=== PATIENT | male | born 1955 | race Caucasian/White ===

== ENCOUNTER 2018-08-27 11:45 | Emergency (ER) | payer MEDICARE, BC ==
[~2018-08-27] VITALS: Ht 190.5 cm; Wt 104.3 kg
[2018-08-27 12:21] LABS: BASOPHILS ABSOLUTE AUTO 0.04 K/mm3 (0.00-0.23); BASOPHILS PERCENT AUTO 0 % (0-2); EOSINOPHILS ABSOLUTE AUTO 0.07 K/mm3 (0.00-0.68); EOSINOPHILS PERCENT AUTO 1 % (0-6); Hemoglobin 9.3 g/dL (13.5-17.5); IMMATURE GRAN ABSOLUTE AUTO 0.08 K/mm3 (0.00-0.10); IMMATURE GRAN PERCENT AUTO 1 % (0-1); LYMPHOCYTES ABSOLUTE AUTO 1.39 K/mm3 (0.84-5.20); LYMPHOCYTES PERCENT AUTO 15 % (21-46); MONOCYTES ABSOLUTE AUTO 0.95 K/mm3 (0.16-1.47); MONOCYTES PERCENT AUTO 11 % (4-13); Mean Corpuscular HGB 22.4 pg (26.0-34.0); Mean Corpuscular HGB Conc 28.2 g/dL (31.5-36.5); Mean Corpuscular Volume 79 fL (80-100); Mean Platelet Volume 10.4 fL (9.1-12.4); NEUTROPHILS ABSOLUTE AUTO 6.52 K/mm3 (1.96-9.15); NEUTROPHILS PERCENT AUTO 72 % (41-73); NRBC ABSOLUTE 0.07 K/mm3 (0.00-0.02); NRBC Auto 0.8 /100 WBC (0.0-0.2); Platelet Count 193 K/mm3 (150-400); RDW Coefficient Variation 20.4 % (11.7-14.2); RDW Standard Deviation 57.5 fL (35.1-46.3); Red Blood Cell Count 4.16 M/mm3 (4.30-5.90); White Blood Cell Count 9.05 K/mm3 (4.00-11.30)
[2018-08-27 12:38] LABS: International Normalized Ratio 1.44; Prothrombin Time Results 14.8 Sec (9.7-11.5)
[2018-08-27 12:44] LABS: Alanine Aminotransfer (ALT/SGP 19 U/L (12-78); Albumin, Blood 2.6 g/dL (3.4-5.0); Albumin/Globulin Ratio 0.5 (0.8-1.8); Alk Phos 96 U/L (50-136); Anion Gap 11 mmol/L (6-16); Aspartate Aminotrans (AST/SGOT 30 U/L (12-37); Bilirubin, Total 0.3 mg/dL (0.1-1.0); Blood Urea Nitrogen 21 mg/dL (8-24); CO2, Blood 20 mmol/L (21-32); Calcium, Blood 7.8 mg/dL (8.5-10.1); Chloride, Blood 110 mmol/L (98-108); Creatinine, Blood 1.62 mg/dL (0.60-1.20); Globulin, Blood 5.1 g/dL (2.2-4.0); Glomerular Filtration Rate 46 (60-); Glucose, Blood 91 mg/dL (70-99); Potassium, Blood 3.8 mmol/L (3.5-5.5); Sodium, Blood 141 mmol/L (136-145); Total Protein, Blood 7.7 g/dL (6.4-8.2)
[2018-08-27 12:51] LABS: Digoxin (Lanoxin) 0.84 ug/mL (0.80-2.00)
[2018-08-27] MEDS ORDERED: CEFU250T47 PO (14:31)
[2018-08-27] MEDS ORDERED: METO100ER PO (14:32)
[2018-08-27] MEDS ORDERED: AMLO5 PO (14:32)
[2018-08-27] MEDS ORDERED: DIGOX125 MCG PO (14:32)
[2018-08-27] MEDS ORDERED: XARELTO15 MG PO (14:33)
[2018-08-27] MEDS ORDERED: PANT40 PO (14:33)
[2018-08-27] MEDS ORDERED: BUME2 PO (14:33)
[2018-08-27] MEDS ORDERED: PRAV20 PO (14:33)
[2018-08-27] MEDS ORDERED: Amiodarone HCl200 MG PO (14:34)
[2018-08-27] MEDS ORDERED: ACET325 PO (14:35)
== END 2018-08-27 15:10 | disposition home or self-care (01) ==
LOC: ER 11:45
PROVIDERS: Physician Assistant
DX: L08.9 Local infection of the skin and subcutaneous tissue, unspecified (principal); R79.9 Abnormal finding of blood chemistry, unspecified; Z79.899 Other long term (current) drug therapy
CPT/HCPCS: 36415; 80053; 80162; 83605; 85025; 85610; 87040; 93005; 93010; 96360; 99283-25; J7120

== ENCOUNTER 2018-08-28 12:20 | Day surgery (SDC) | payer MEDICARE, BC ==
[~2018-08-28 12:20] MED LIST: ACET325 PO; AMLO5 PO; Amiodarone HCl200 MG PO; BUME2 PO; CEFU250T47 PO; DIGOX125 MCG PO; METO100ER PO; PANT40 PO; PRAV20 PO; XARELTO15 MG PO
[2018-08-29] MEDS ORDERED: Rocephin 1g1 G/50 ML IV (16:38)
== END 2018-08-28 16:40 | disposition home or self-care (01) ==
LOC: ATC 12:20
DX: A40.8 Other streptococcal sepsis (principal)
CPT/HCPCS: 36569; 71045; 96365; C1751; J0696

== ENCOUNTER 2018-08-29 14:15 | Day surgery (SDC) | payer MEDICARE, BC ==
[2018-08-29] MEDS ORDERED: Rocephin 1g1 G/50 ML IV (16:38)
== END 2018-08-29 15:30 | disposition home or self-care (01) ==
LOC: WOUND 14:15
DX: L97.512 Non-pressure chronic ulcer of other part of right foot with fat layer exposed (principal); L97.522 Non-pressure chronic ulcer of other part of left foot with fat layer exposed; Z87.891 Personal history of nicotine dependence; I50.9 Heart failure, unspecified
CPT/HCPCS: G0463

== ENCOUNTER 2018-08-29 16:19 | Day surgery (SDC) | payer MEDICARE, BC ==
[2018-08-29] MEDS ORDERED: Rocephin 1g1 G/50 ML IV (16:38)
== END 2018-08-29 16:56 | disposition home or self-care (01) ==
LOC: ATC 16:19
DX: A40.8 Other streptococcal sepsis (principal)
CPT/HCPCS: 96365; J0696

== ENCOUNTER 2018-08-30 08:21 | Day surgery (SDC) | payer MEDICARE, BC ==
[~2018-08-30 08:21] MED LIST changes: +Rocephin 1g1 G/50 ML IV
== END 2018-08-30 08:55 | disposition home or self-care (01) ==
LOC: ATC 08:21
DX: A40.8 Other streptococcal sepsis (principal); L97.519 Non-pressure chronic ulcer of other part of right foot with unspecified severity; I48.1 Persistent atrial fibrillation; Z79.01 Long term (current) use of anticoagulants; I11.0 Hypertensive heart disease with heart failure; I50.9 Heart failure, unspecified; D64.9 Anemia, unspecified; Z87.891 Personal history of nicotine dependence
CPT/HCPCS: 96365; J0696

== ENCOUNTER 2018-08-31 08:24 | Day surgery (SDC) | payer MEDICARE, BC | END 2018-08-31 08:55 | disposition home or self-care (01) | LOC: ATC 08:24 | DX: A40.8 Other streptococcal sepsis (principal) | CPT/HCPCS: 96365; J0696 ==

== ENCOUNTER 2018-09-01 00:02 | Day surgery (SDC) | payer MEDICARE, BC | END 2018-09-01 09:09 | disposition home or self-care (01) | LOC: ATC 00:02 | DX: A40.8 Other streptococcal sepsis (principal) | CPT/HCPCS: 96365; J0696 ==

== ENCOUNTER 2018-09-02 00:21 | Day surgery (SDC) | payer MEDICARE, BC | END 2018-09-02 09:05 | disposition home or self-care (01) | LOC: ATC 00:21 | DX: A40.8 Other streptococcal sepsis (principal) | CPT/HCPCS: 96365; J0696 ==

== ENCOUNTER 2018-09-03 00:07 | Day surgery (SDC) | payer MEDICARE, BC | END 2018-09-03 09:05 | disposition home or self-care (01) | LOC: ATC 00:07 | DX: A40.8 Other streptococcal sepsis (principal) | CPT/HCPCS: 96365; J0696 ==

== ENCOUNTER 2018-09-03 09:54 | Day surgery (SDC) | payer MEDICARE, BC | END 2018-09-03 22:51 | disposition home or self-care (01) | LOC: WOUND 09:54 | DX: L97.512 Non-pressure chronic ulcer of other part of right foot with fat layer exposed (principal); L97.522 Non-pressure chronic ulcer of other part of left foot with fat layer exposed; L03.032 Cellulitis of left toe; L02.612 Cutaneous abscess of left foot; R60.0 Localized edema; I10 Essential (primary) hypertension; J45.909 Unspecified asthma, uncomplicated; Z95.0 Presence of cardiac pacemaker | CPT/HCPCS: 87070; 87075; 87205 ==

== ENCOUNTER 2018-09-04 00:06 | Day surgery (SDC) | payer MEDICARE, BC | END 2018-09-04 08:54 | disposition home or self-care (01) | LOC: ATC 00:06 | DX: A40.8 Other streptococcal sepsis (principal) | CPT/HCPCS: 96365; J0696 ==

== ENCOUNTER 2018-09-05 07:24 | Day surgery (SDC) | payer MEDICARE, BC | END 2018-09-05 08:55 | disposition home or self-care (01) | LOC: ATC 07:24 | DX: A40.8 Other streptococcal sepsis (principal); L97.519 Non-pressure chronic ulcer of other part of right foot with unspecified severity; Z87.891 Personal history of nicotine dependence | CPT/HCPCS: 96365; J0696 ==

== ENCOUNTER 2018-09-06 08:21 | Day surgery (SDC) | payer MEDICARE, BC | END 2018-09-06 08:54 | disposition home or self-care (01) | LOC: ATC 08:21 | DX: A40.8 Other streptococcal sepsis (principal) | CPT/HCPCS: 96365; J0696 ==

== ENCOUNTER 2018-09-07 08:24 | Day surgery (SDC) | payer MEDICARE, BC | END 2018-09-07 08:54 | disposition home or self-care (01) | LOC: ATC 08:24 | DX: A40.8 Other streptococcal sepsis (principal); L97.519 Non-pressure chronic ulcer of other part of right foot with unspecified severity; I48.1 Persistent atrial fibrillation; I11.0 Hypertensive heart disease with heart failure; I50.9 Heart failure, unspecified; Z79.01 Long term (current) use of anticoagulants; Z79.899 Other long term (current) drug therapy | CPT/HCPCS: 96365; J0696 ==

== ENCOUNTER 2018-09-08 00:23 | Day surgery (SDC) | payer MEDICARE, BC | END 2018-09-08 08:48 | disposition home or self-care (01) | LOC: ATC 00:23 | DX: A40.8 Other streptococcal sepsis (principal) | CPT/HCPCS: 96365; J0696 ==

== ENCOUNTER 2018-09-09 00:02 | Day surgery (SDC) | payer MEDICARE, BC | END 2018-09-09 08:56 | disposition home or self-care (01) | LOC: ATC 00:02 | DX: A40.8 Other streptococcal sepsis (principal) | CPT/HCPCS: 96365 ==

== ENCOUNTER 2018-09-10 08:10 | Day surgery (SDC) | payer MEDICARE, BC | END 2018-09-10 23:03 | disposition home or self-care (01) | LOC: WOUND 08:10 | DX: L97.511 Non-pressure chronic ulcer of other part of right foot limited to breakdown of skin (principal); L84 Corns and callosities; L03.032 Cellulitis of left toe; L02.612 Cutaneous abscess of left foot; R60.0 Localized edema; A40.8 Other streptococcal sepsis; L97.819 Non-pressure chronic ulcer of other part of right lower leg with unspecified severity; I11.0 Hypertensive heart disease with heart failure; I50.9 Heart failure, unspecified; I48.1 Persistent atrial fibrillation; Z79.01 Long term (current) use of anticoagulants | CPT/HCPCS: 96365; J0696 ==

== ENCOUNTER 2018-09-11 00:19 | Day surgery (SDC) | payer MEDICARE, BC | END 2018-09-11 09:05 | disposition home or self-care (01) | LOC: ATC 00:19 | DX: A40.8 Other streptococcal sepsis (principal) | CPT/HCPCS: 96374; J0696 ==

== ENCOUNTER 2018-09-12 00:19 | Day surgery (SDC) | payer MEDICARE, BC ==
--- NOTE | 2018-09-12 09:16 | NUR ---
SEE PAPER CHART WELL, THESE ENTERS WERE ENTERED LATER FROM PAPER CHART. COMPUTERS DOWN [facility] WIDE
== END 2018-09-12 09:05 | disposition home or self-care (01) ==
LOC: ATC 00:19
DX: A40.8 Other streptococcal sepsis (principal)
CPT/HCPCS: 96365; J0696

== ENCOUNTER 2018-09-13 08:21 | Day surgery (SDC) | payer MEDICARE, BC | END 2018-09-13 09:08 | disposition home or self-care (01) | LOC: ATC 08:21 | DX: A40.8 Other streptococcal sepsis (principal); L97.519 Non-pressure chronic ulcer of other part of right foot with unspecified severity; I48.1 Persistent atrial fibrillation; Z79.01 Long term (current) use of anticoagulants; Z87.891 Personal history of nicotine dependence; I11.0 Hypertensive heart disease with heart failure; I50.9 Heart failure, unspecified | CPT/HCPCS: 96365; J0696 ==

== ENCOUNTER 2018-09-14 08:28 | Day surgery (SDC) | payer MEDICARE, BC | END 2018-09-14 09:01 | disposition home or self-care (01) | LOC: ATC 08:28 | DX: A40.8 Other streptococcal sepsis (principal); L97.519 Non-pressure chronic ulcer of other part of right foot with unspecified severity; B95.4 Other streptococcus as the cause of diseases classified elsewhere | CPT/HCPCS: 96365; J0696 ==

== ENCOUNTER 2018-09-15 00:14 | Day surgery (SDC) | payer MEDICARE, BC | END 2018-09-15 22:46 | disposition home or self-care (01) | LOC: ATC 00:14 | DX: A40.8 Other streptococcal sepsis (principal) | CPT/HCPCS: 96365; J0696 ==

== ENCOUNTER 2018-09-16 00:20 | Day surgery (SDC) | payer MEDICARE, BC | END 2018-09-16 08:50 | disposition home or self-care (01) | LOC: ATC 00:20 | DX: A40.8 Other streptococcal sepsis (principal) | CPT/HCPCS: 96365; J0696 ==

== ENCOUNTER 2018-09-17 00:17 | Day surgery (SDC) | payer MEDICARE, BC | END 2018-09-17 08:55 | disposition home or self-care (01) | LOC: ATC 00:17 | DX: A40.8 Other streptococcal sepsis (principal) | CPT/HCPCS: 96365; J0696 ==

== ENCOUNTER 2018-09-17 00:35 | Day surgery (SDC) | payer MEDICARE, BC | END 2018-09-17 22:48 | disposition home or self-care (01) | LOC: WOUND 00:35 | DX: L97.512 Non-pressure chronic ulcer of other part of right foot with fat layer exposed (principal); L97.522 Non-pressure chronic ulcer of other part of left foot with fat layer exposed; L03.032 Cellulitis of left toe; L02.612 Cutaneous abscess of left foot; R60.0 Localized edema ==

== ENCOUNTER 2018-09-18 00:24 | Day surgery (SDC) | payer MEDICARE, BC | END 2018-09-18 09:05 | disposition home or self-care (01) | LOC: ATC 00:24 | DX: A40.8 Other streptococcal sepsis (principal); L97.519 Non-pressure chronic ulcer of other part of right foot with unspecified severity; I48.91 Unspecified atrial fibrillation; I50.9 Heart failure, unspecified; Z87.891 Personal history of nicotine dependence | CPT/HCPCS: 96365; J0696 ==

== ENCOUNTER 2018-09-19 00:23 | Day surgery (SDC) | payer MEDICARE, BC | END 2018-09-19 08:49 | disposition home or self-care (01) | LOC: ATC 00:23 | DX: A40.8 Other streptococcal sepsis (principal); L97.519 Non-pressure chronic ulcer of other part of right foot with unspecified severity; B95.4 Other streptococcus as the cause of diseases classified elsewhere; Z79.01 Long term (current) use of anticoagulants; Z87.891 Personal history of nicotine dependence; I48.91 Unspecified atrial fibrillation; I50.9 Heart failure, unspecified | CPT/HCPCS: 96365; J0696 ==

== ENCOUNTER 2018-09-20 08:20 | Day surgery (SDC) | payer MEDICARE, BC | END 2018-09-20 08:58 | disposition home or self-care (01) | LOC: ATC 08:20 | DX: A40.8 Other streptococcal sepsis (principal); L97.519 Non-pressure chronic ulcer of other part of right foot with unspecified severity; B95.4 Other streptococcus as the cause of diseases classified elsewhere; I48.91 Unspecified atrial fibrillation; I50.9 Heart failure, unspecified; Z79.01 Long term (current) use of anticoagulants; Z87.891 Personal history of nicotine dependence | CPT/HCPCS: 96365; J0696 ==

== ENCOUNTER 2018-09-21 08:22 | Day surgery (SDC) | payer MEDICARE, BC | END 2018-09-21 08:50 | disposition home or self-care (01) | LOC: ATC 08:22 | DX: A40.8 Other streptococcal sepsis (principal) | CPT/HCPCS: 96365; J0696 ==

== ENCOUNTER 2018-09-22 00:17 | Day surgery (SDC) | payer MEDICARE, BC | END 2018-09-22 08:55 | disposition home or self-care (01) | LOC: ATC 00:17 | DX: A40.8 Other streptococcal sepsis (principal) | CPT/HCPCS: 96365; J0696 ==

== ENCOUNTER 2018-09-23 00:04 | Day surgery (SDC) | payer MEDICARE, BC ==
--- NOTE | 2018-09-23 08:57 | NUR ---
INFUSION STOP TIME [id number].
== END 2018-09-23 08:55 | disposition home or self-care (01) ==
LOC: ATC 00:04
DX: A40.8 Other streptococcal sepsis (principal)
CPT/HCPCS: 96365; J0696

== ENCOUNTER 2018-09-24 00:33 | Day surgery (SDC) | payer MEDICARE, BC | END 2018-09-24 22:45 | disposition home or self-care (01) | LOC: WOUND 00:33 | DX: L97.512 Non-pressure chronic ulcer of other part of right foot with fat layer exposed (principal); L03.032 Cellulitis of left toe; L02.612 Cutaneous abscess of left foot; R60.0 Localized edema ==

== ENCOUNTER 2018-09-24 00:36 | Day surgery (SDC) | payer MEDICARE, BC ==
[2018-09-24 09:26] LABS: BASOPHILS ABSOLUTE AUTO 0.05 K/mm3 (0.00-0.23); BASOPHILS PERCENT AUTO 1 % (0-2); EOSINOPHILS ABSOLUTE AUTO 0.18 K/mm3 (0.00-0.68); EOSINOPHILS PERCENT AUTO 2 % (0-6); Hematocrit 31.9 % (37.0-53.0); Hemoglobin 9.1 g/dL (13.5-17.5); IMMATURE GRAN ABSOLUTE AUTO 0.03 K/mm3 (0.00-0.10); IMMATURE GRAN PERCENT AUTO 0 % (0-1); LYMPHOCYTES ABSOLUTE AUTO 1.28 K/mm3 (0.84-5.20); LYMPHOCYTES PERCENT AUTO 16 % (21-46); MONOCYTES ABSOLUTE AUTO 0.78 K/mm3 (0.16-1.47); MONOCYTES PERCENT AUTO 10 % (4-13); Mean Corpuscular HGB 23.1 pg (26.0-34.0); Mean Corpuscular HGB Conc 28.5 g/dL (31.5-36.5); Mean Corpuscular Volume 81 fL (80-100); Mean Platelet Volume 9.3 fL (9.1-12.4); NEUTROPHILS ABSOLUTE AUTO 5.81 K/mm3 (1.96-9.15); NEUTROPHILS PERCENT AUTO 72 % (41-73); Platelet Count 250 K/mm3 (150-400); RDW Coefficient Variation 19.9 % (11.7-14.2); RDW Standard Deviation 57.7 fL (35.1-46.3); Red Blood Cell Count 3.94 M/mm3 (4.30-5.90); White Blood Cell Count 8.13 K/mm3 (4.00-11.30)
[2018-09-24 09:42] LABS: Alanine Aminotransfer (ALT/SGP 10 U/L (12-78); Albumin, Blood 2.7 g/dL (3.4-5.0); Albumin/Globulin Ratio 0.5 (0.8-1.8); Alk Phos 119 U/L (50-136); Anion Gap 7 mmol/L (6-16); Aspartate Aminotrans (AST/SGOT 11 U/L (12-37); Bilirubin, Total 0.4 mg/dL (0.1-1.0); Blood Urea Nitrogen 22 mg/dL (8-24); Bun/Creatinine Ratio 16.8 (12.0-20.0); CHOL/HDL RATIO 3.3; CO2, Blood 26 mmol/L (21-32); Calcium, Blood 8.1 mg/dL (8.5-10.1); Chloride, Blood 106 mmol/L (98-108); Cholesterol 120 mg/dL (50-200); Creatinine, Blood 1.31 mg/dL (0.60-1.20); Globulin, Blood 5.1 g/dL (2.2-4.0); Glomerular Filtration Rate 58 (60-); Glucose, Blood 192 mg/dL (70-99); HDL Cholesterol 36 mg/dL (>39); LDL/HDL RATIO 1.6; Low Density Lipoprotein Chol 59 mg/dL (0-110); Potassium, Blood 4.5 mmol/L (3.5-5.5); Sodium, Blood 139 mmol/L (136-145); Total Protein, Blood 7.8 g/dL (6.4-8.2); Triglycerides 124 mg/dL (30-160); Very Low Density Lipoprot Chol 24 mg/dL (6-32)
--- NOTE | 2018-09-24 10:38 | NUR ---
2 SETS OF BLOOD CULTURES DONE. STERILE TECHNIQUE MAINTAINED T/O AND PER PROTOCOL. BLOOD SENT TO LAB
[2018-09-24 10:46] LABS: Microalb/Creat Ratio UR, Rand 28.482 mg/g (0.000-30.000); Microalbumin, Random Urine 76.9 mg/L (0.000-20.000)
== END 2018-09-24 09:40 | disposition home or self-care (01) ==
LOC: ATC 00:36
PROVIDERS: Family Medicine
DX: A40.8 Other streptococcal sepsis (principal); I10 Essential (primary) hypertension
CPT/HCPCS: 80053; 80061; 82043; 82570; 85025; 87040; 96365; J0696

== ENCOUNTER 2018-09-25 00:04 | Day surgery (SDC) | payer MEDICARE, BC | END 2018-09-25 09:45 | disposition home or self-care (01) | LOC: ATC 00:04 | DX: Z45.1 Encounter for adjustment and management of infusion pump (principal); A40.9 Streptococcal sepsis, unspecified | CPT/HCPCS: 99211 ==

== ENCOUNTER 2018-10-15 00:30 | Day surgery (SDC) | payer MEDICARE, BC | END 2018-10-15 22:49 | disposition home or self-care (01) | LOC: WOUND 00:30 | DX: L97.512 Non-pressure chronic ulcer of other part of right foot with fat layer exposed (principal); L97.529 Non-pressure chronic ulcer of other part of left foot with unspecified severity; L03.032 Cellulitis of left toe; L02.612 Cutaneous abscess of left foot; I11.0 Hypertensive heart disease with heart failure; I50.9 Heart failure, unspecified; I48.91 Unspecified atrial fibrillation; J45.909 Unspecified asthma, uncomplicated; E78.5 Hyperlipidemia, unspecified ==

== ENCOUNTER 2018-10-22 00:33 | Day surgery (SDC) | payer MEDICARE, BC | END 2018-10-22 22:37 | disposition home or self-care (01) | LOC: WOUND 00:33 | DX: L97.522 Non-pressure chronic ulcer of other part of left foot with fat layer exposed (principal); L97.512 Non-pressure chronic ulcer of other part of right foot with fat layer exposed; I11.0 Hypertensive heart disease with heart failure; I50.9 Heart failure, unspecified; I48.91 Unspecified atrial fibrillation; E78.5 Hyperlipidemia, unspecified; J45.909 Unspecified asthma, uncomplicated; M10.9 Gout, unspecified ==

== ENCOUNTER 2018-10-29 00:09 | Day surgery (SDC) | payer MEDICARE, BC | END 2018-10-29 22:41 | disposition home or self-care (01) | LOC: WOUND 00:09 | DX: L97.512 Non-pressure chronic ulcer of other part of right foot with fat layer exposed (principal); I11.0 Hypertensive heart disease with heart failure; I50.9 Heart failure, unspecified; J45.909 Unspecified asthma, uncomplicated; M10.9 Gout, unspecified ==

== ENCOUNTER 2018-11-05 01:24 | Day surgery (SDC) | payer MEDICARE, BC | END 2018-11-05 23:15 | disposition home or self-care (01) | LOC: WOUND 01:24 | DX: L97.512 Non-pressure chronic ulcer of other part of right foot with fat layer exposed (principal); L97.529 Non-pressure chronic ulcer of other part of left foot with unspecified severity; I11.0 Hypertensive heart disease with heart failure; I50.9 Heart failure, unspecified; M10.9 Gout, unspecified; J45.909 Unspecified asthma, uncomplicated ==

== ENCOUNTER 2018-11-12 13:22 | Day surgery (SDC) | payer MEDICARE, BC | END 2018-11-12 23:06 | disposition home or self-care (01) | LOC: WOUND 13:22 | DX: L97.512 Non-pressure chronic ulcer of other part of right foot with fat layer exposed (principal); I48.91 Unspecified atrial fibrillation; I11.0 Hypertensive heart disease with heart failure; I50.9 Heart failure, unspecified; E78.5 Hyperlipidemia, unspecified; J45.909 Unspecified asthma, uncomplicated; M10.9 Gout, unspecified; I89.0 Lymphedema, not elsewhere classified | CPT/HCPCS: G0463 ==

== ENCOUNTER 2018-11-26 13:37 | Day surgery (SDC) | payer MEDICARE, BC | END 2018-11-26 23:01 | disposition home or self-care (01) | LOC: WOUND 13:37 | DX: L97.512 Non-pressure chronic ulcer of other part of right foot with fat layer exposed (principal); L97.522 Non-pressure chronic ulcer of other part of left foot with fat layer exposed; J45.909 Unspecified asthma, uncomplicated; I89.0 Lymphedema, not elsewhere classified; I11.0 Hypertensive heart disease with heart failure; I50.9 Heart failure, unspecified; M1A.9XX1 Chronic gout, unspecified, with tophus (tophi) | CPT/HCPCS: Q4196 ==

== ENCOUNTER 2018-12-10 13:30 | Day surgery (SDC) | payer MEDICARE, BC | END 2018-12-11 23:01 | disposition home or self-care (01) | LOC: WOUND 13:30 | DX: L97.512 Non-pressure chronic ulcer of other part of right foot with fat layer exposed (principal); M1A.9XX1 Chronic gout, unspecified, with tophus (tophi); I11.0 Hypertensive heart disease with heart failure; I50.9 Heart failure, unspecified; I48.91 Unspecified atrial fibrillation; E78.5 Hyperlipidemia, unspecified; J45.909 Unspecified asthma, uncomplicated | CPT/HCPCS: Q4196 ==

== ENCOUNTER 2018-12-16 20:28 | Inpatient (IN) | payer MEDICARE, BC ==
[~2018-12-16] VITALS: Ht 190.5 cm; Wt 99.0 kg
[2018-12-16 20:54] LABS: BASOPHILS ABSOLUTE AUTO 0.04 K/mm3 (0.00-0.23); BASOPHILS PERCENT AUTO 0 % (0-2); EOSINOPHILS ABSOLUTE AUTO 0.07 K/mm3 (0.00-0.68); EOSINOPHILS PERCENT AUTO 0 % (0-6); Hematocrit 33.8 % (37.0-53.0); IMMATURE GRAN ABSOLUTE AUTO 0.09 K/mm3 (0.00-0.10); IMMATURE GRAN PERCENT AUTO 1 % (0-1); LYMPHOCYTES ABSOLUTE AUTO 1.59 K/mm3 (0.84-5.20); LYMPHOCYTES PERCENT AUTO 9 % (21-46); MONOCYTES PERCENT AUTO 6 % (4-13); Mean Corpuscular HGB 20.8 pg (26.0-34.0); Mean Corpuscular HGB Conc 26.6 g/dL (31.5-36.5); Mean Corpuscular Volume 78 fL (80-100); Mean Platelet Volume 9.4 fL (9.1-12.4); NEUTROPHILS ABSOLUTE AUTO 15.09 K/mm3 (1.96-9.15); NEUTROPHILS PERCENT AUTO 84 % (41-73); Platelet Count 403 K/mm3 (150-400); RDW Coefficient Variation 18.8 % (11.7-14.2); RDW Standard Deviation 52.7 fL (35.1-46.3); Red Blood Cell Count 4.33 M/mm3 (4.30-5.90); White Blood Cell Count 17.88 K/mm3 (4.00-11.30)
[2018-12-16 21:16] LABS: Albumin, Blood 2.8 g/dL (3.4-5.0); Albumin/Globulin Ratio 0.5 (0.8-1.8); Bilirubin, Total 0.5 mg/dL (0.1-1.0); Bun/Creatinine Ratio 18.6 (12.0-20.0); Calcium, Blood 9.2 mg/dL (8.5-10.1); Creatinine, Blood 1.67 mg/dL (0.60-1.20); Globulin, Blood 5.6 g/dL (2.2-4.0); Potassium, Blood 4.4 mmol/L (3.5-5.5); Total Protein, Blood 8.4 g/dL (6.4-8.2); Uric Acid, Blood 8.6 mg/dL (3.5-7.2)
[2018-12-17] MEDS ORDERED: ELIQUIS5 MG PO (05:31)
[2018-12-17] MEDS ORDERED: FEBU40TA (05:34)
[2018-12-17 05:53] LABS: Hematocrit 29.2 % (37.0-53.0); Mean Corpuscular HGB 21.1 pg (26.0-34.0); Mean Corpuscular HGB Conc 27.4 g/dL (31.5-36.5); Mean Corpuscular Volume 77 fL (80-100); Mean Platelet Volume 9.2 fL (9.1-12.4); Platelet Count 348 K/mm3 (150-400); RDW Coefficient Variation 18.6 % (11.7-14.2); RDW Standard Deviation 50.9 fL (35.1-46.3); White Blood Cell Count 15.96 K/mm3 (4.00-11.30)
[2018-12-17 06:10] LABS: Albumin, Blood 2.3 g/dL (3.4-5.0); Albumin/Globulin Ratio 0.5 (0.8-1.8); Bilirubin, Total 0.6 mg/dL (0.1-1.0); Bun/Creatinine Ratio 18.6 (12.0-20.0); Calcium, Blood 8.9 mg/dL (8.5-10.1); Creatinine, Blood 1.56 mg/dL (0.60-1.20); Potassium, Blood 4.5 mmol/L (3.5-5.5); Total Protein, Blood 7.3 g/dL (6.4-8.2)
[2018-12-17 07:10] LABS: Digoxin (Lanoxin) 1.63 ug/mL (0.80-2.00)
--- NOTE | 2018-12-17 17:15 | NUR ---
PATIENT IS COMPLIANT WITH CARES AND FRIENDLY WITH STAFF. HE HAS BEEN CALM ALL SHIFT WITH NO COMPLAINTS . HE HAS STATED HIS RIGHT ARM IS SORE DUE TO HIS GOUT AND DOES NOT ENGAGE IT IN MOVEMENT. THIS NURSE HAD A CALL FROM PATIENTS STEP SON WHO INFORMED THIS NURSE THAT THE PATIENT IS AN ETOH ABUSER AND WILL MOST LIKELY BE DETOXING SOON. THIS NURSE HAS NOT NOTED ANY ADVERSE CONDITIONS OR SS OF DT OF THIS TIME. DOCTOR NOTIFIED OF THIS NEW FINDING. PATIENT DOES NOT ATTEMPT TO GET OUT OF BED AND ACCORDING TO SON HAS BEEN CHAIR BOUND THE LAST FEW DAY. HE IS ALERT AND ORIENTED . CALL LIGHT WITH IN REACH.
[2018-12-17 18:49] LABS: BASOPHILS ABSOLUTE AUTO 0.02 K/mm3 (0.00-0.23); BASOPHILS PERCENT AUTO 0 % (0-2); EOSINOPHILS PERCENT AUTO 0 % (0-6); Hematocrit 31.3 % (37.0-53.0); Hemoglobin 8.5 g/dL (13.5-17.5); IMMATURE GRAN ABSOLUTE AUTO 0.08 K/mm3 (0.00-0.10); IMMATURE GRAN PERCENT AUTO 1 % (0-1); LYMPHOCYTES PERCENT AUTO 2 % (21-46); MONOCYTES ABSOLUTE AUTO 0.15 K/mm3 (0.16-1.47); MONOCYTES PERCENT AUTO 1 % (4-13); Mean Corpuscular HGB Conc 27.2 g/dL (31.5-36.5); Mean Corpuscular Volume 77 fL (80-100); Mean Platelet Volume 9.4 fL (9.1-12.4); NEUTROPHILS ABSOLUTE AUTO 15.96 K/mm3 (1.96-9.15); NEUTROPHILS PERCENT AUTO 97 % (41-73); Platelet Count 384 K/mm3 (150-400); RDW Coefficient Variation 18.8 % (11.7-14.2); RDW Standard Deviation 52.2 fL (35.1-46.3); Red Blood Cell Count 4.05 M/mm3 (4.30-5.90); White Blood Cell Count 16.51 K/mm3 (4.00-11.30)
[2018-12-18 04:56] LABS: BASOPHILS PERCENT AUTO 0 % (0-2); EOSINOPHILS PERCENT AUTO 0 % (0-6); Hematocrit 27.5 % (37.0-53.0); Hemoglobin 7.6 g/dL (13.5-17.5); IMMATURE GRAN ABSOLUTE AUTO 0.08 K/mm3 (0.00-0.10); IMMATURE GRAN PERCENT AUTO 1 % (0-1); LYMPHOCYTES ABSOLUTE AUTO 0.65 K/mm3 (0.84-5.20); LYMPHOCYTES PERCENT AUTO 5 % (21-46); MONOCYTES ABSOLUTE AUTO 0.55 K/mm3 (0.16-1.47); MONOCYTES PERCENT AUTO 4 % (4-13); Mean Corpuscular HGB Conc 27.6 g/dL (31.5-36.5); Mean Corpuscular Volume 76 fL (80-100); Mean Platelet Volume 9.2 fL (9.1-12.4); NEUTROPHILS ABSOLUTE AUTO 12.26 K/mm3 (1.96-9.15); NEUTROPHILS PERCENT AUTO 91 % (41-73); NRBC ABSOLUTE 0.02 K/mm3 (0.00-0.02); NRBC Auto 0.1 /100 WBC (0.0-0.2); Platelet Count 355 K/mm3 (150-400); RDW Coefficient Variation 18.6 % (11.7-14.2); RDW Standard Deviation 50.2 fL (35.1-46.3); Red Blood Cell Count 3.62 M/mm3 (4.30-5.90); White Blood Cell Count 13.54 K/mm3 (4.00-11.30)
[2018-12-18 05:30] LABS: Albumin, Blood 2.1 g/dL (3.4-5.0); Albumin/Globulin Ratio 0.4 (0.8-1.8); Bilirubin, Direct 0.1 mg/dL (0.0-0.3); Bilirubin, Indirect 0.4 mg/dL (0.1-0.7); Bilirubin, Total 0.5 mg/dL (0.1-1.0); Bun/Creatinine Ratio 20.7 (12.0-20.0); Calcium, Blood 8.6 mg/dL (8.5-10.1); Creatinine, Blood 1.64 mg/dL (0.60-1.20); Globulin, Blood 4.7 g/dL (2.2-4.0); Magnesium, Blood 2.5 mg/dL (1.6-2.4); Phosphorus, Blood 3.8 mg/dL (2.5-4.9); Potassium, Blood 4.8 mmol/L (3.5-5.5); Total Protein, Blood 6.8 g/dL (6.4-8.2)
--- NOTE | 2018-12-18 06:10 | NUR ---
SHIFT SUMMARY PT SLEPT WELL T/O NIGHT. NO ACUTE CHANGES THIS SHIFT. AOX4. VSS. DENIES SOB OR NAUSEA. REPORTS 7-8/10 PAIN IN BILATERAL KNEES, MEDICATED PER ORDERS. CIWA SCORE ONLY 2 FOR MILD TREMORS. BANDAGES ON BILATERAL FEET ARE C/D/I. PT ON BEDREST, USES URINAL. CALL LIGHT IN REACH.
[2018-12-18 12:41] LABS: Percent Saturation 7.1 % (20.0-50.0)
--- NOTE | 2018-12-18 17:10 | NUR ---
PATIENT IS ALERT AND ORIENTED AND COOPERATIVE WITH CARE. HE HAS BEEN ON BEDREST ALL DAY. HE USES THE URINAL IN BED. HE USED THE BEDPAN TO HAVE A BM. HIS KNEES ARE SWOLLEN. HE COMPLAINS OF PAIN IN HIS KNEES WITH MOVEMENT. HE WAS TREATED ONCE TODAY FOR SAID PAIN. A CONSULT WITH DR. TILLEY WAS CALLED IN BY THE RN. WILL CONTINUE TO MONITOR THIS PATIENT.
[2018-12-18 18:39] LABS: Hematocrit 30.5 % (37.0-53.0); Hemoglobin 8.5 g/dL (13.5-17.5)
[2018-12-18 19:14] LABS: Body Fluid Crystals POS (NEGATIVE)
[2018-12-18 19:14] LABS: Body Fluid Crystals POS (NEGATIVE)
[2018-12-18 19:30] LABS: BODY FLUID RBC 0.027 (0-0); RBC Count, Synovial Fluid 27000 /mm3 (0-0)
[2018-12-18 19:38] LABS: WBC Count, Synovial Fluid 14580 /mm3 (0-180)
[2018-12-18 19:46] LABS: BODY FLUID RBC 0.004 (0-0); RBC Count, Synovial Fluid 4000 /mm3 (0-0)
[2018-12-18 19:47] LABS: WBC Count, Synovial Fluid 18920 /mm3 (0-180)
[2018-12-18 20:11] LABS: Lymphs, Synovial Fluid 3 % (0-15); Monocytes/Macrophages, Synovia 7 % (0-65); Neutrophils, Synovial Fluid 90 % (0-24)
[2018-12-18 20:12] LABS: Appearance, Synovial Fluid Cloudy (Clear); Color, Synovial Fluid Yellow (None-P Yel)
[2018-12-18 20:15] LABS: Lymphs, Synovial Fluid 3 % (0-15); Monocytes/Macrophages, Synovia 5 % (0-65); Neutrophils, Synovial Fluid 92 % (0-24)
[2018-12-18 20:16] LABS: Appearance, Synovial Fluid Cloudy (Clear); Color, Synovial Fluid Yellow (None-P Yel)
[2018-12-19 05:17] LABS: BASOPHILS PERCENT AUTO 0 % (0-2); EOSINOPHILS PERCENT AUTO 0 % (0-6); Hematocrit 29.5 % (37.0-53.0); Hemoglobin 8.1 g/dL (13.5-17.5); IMMATURE GRAN ABSOLUTE AUTO 0.07 K/mm3 (0.00-0.10); IMMATURE GRAN PERCENT AUTO 1 % (0-1); LYMPHOCYTES ABSOLUTE AUTO 0.64 K/mm3 (0.84-5.20); LYMPHOCYTES PERCENT AUTO 6 % (21-46); MONOCYTES ABSOLUTE AUTO 0.41 K/mm3 (0.16-1.47); MONOCYTES PERCENT AUTO 4 % (4-13); Mean Corpuscular HGB 20.4 pg (26.0-34.0); Mean Corpuscular HGB Conc 27.5 g/dL (31.5-36.5); Mean Corpuscular Volume 74 fL (80-100); Mean Platelet Volume 9.5 fL (9.1-12.4); NEUTROPHILS PERCENT AUTO 89 % (41-73); NRBC ABSOLUTE 0.04 K/mm3 (0.00-0.02); NRBC Auto 0.4 /100 WBC (0.0-0.2); Platelet Count 397 K/mm3 (150-400); RDW Coefficient Variation 18.2 % (11.7-14.2); RDW Standard Deviation 48.7 fL (35.1-46.3); Red Blood Cell Count 3.98 M/mm3 (4.30-5.90); White Blood Cell Count 10.62 K/mm3 (4.00-11.30)
--- NOTE | 2018-12-19 05:30 | NUR ---
SHIFT SUMMARY PT SLEPT WELL T/O NIGHT. NO ACUTE CHANGES THIS SHIFT. AOX4. VSS. DENIES NAUSEA OR SOB. REPORTS 5/10 PAIN IN RT ARM & BILATERAL KNEES, MEDICATED 1X W/TORODOL PER ORDERS. HAS BEEN NPO SINCE MIDNIGHT INCASE POSSIBLE PROCEDURE TODAY. ON BEDREST, USES URINAL. CALL LIGHT IN REACH.
[2018-12-19 05:49] LABS: Bun/Creatinine Ratio 33.5 (12.0-20.0); Calcium, Blood 8.7 mg/dL (8.5-10.1); Creatinine, Blood 1.55 mg/dL (0.60-1.20); Potassium, Blood 4.9 mmol/L (3.5-5.5)
[2018-12-19 14:22] LABS: Stool Occult Bld Immuno 1 Positive (NEGATIVE)
--- NOTE | 2018-12-19 16:59 | NUR ---
SHIFT SUMMARY PATIENT A&O X4, BEDREST DUE TO PAIN IN KNEES. USES URINAL AT THE BEDSIDE. PT REPOSITIONS SELF IN BED. C/O PAIN TO BILAT KNEES THIS SHIFT, RN MEDICATED X1. DENIES ANY NAUSEA OR SOB. ADA DIET OF LUNCH PER DR. TILLEY. NPO FOR BREAKFAST. DRESSING TO LEFT GREAT TOE C/D/I. DRESSING TO RIGHT FOOT WOUND C/D/I. NO ACUTE CHANGES THIS SHIFT. RN WILL CONTINUE TO MONITOR.
--- NOTE | 2018-12-19 17:12 | NUR ---
CBG OF 450, MEDICATED WITH 10 UNITS HUMALOG PER SLIDING SCALE. DR. BUSBY NOTIFIED. NO FURTHER ORDERS GIVEN. RN WILL CONTINUE TO MONITOR.
--- NOTE | 2018-12-20 01:15 | NUR ---
GBG 471 @2058 TREATED PER EMAR. RECHECKED AT 2339 AND DOWN TO 360. CALLED TO HOSPITALIST. ORDER TO RECHECK AT 0200 AND TREAT ONCE PER SLIDING SCALE
--- NOTE | 2018-12-20 07:36 | NUR ---
NOC SHIFT SUMMARY PT HAS BEEN PLEASANT AND COOPERATIVE WITH CARE THIS NIGHT. HE HAS NOT HAD ANY COMPLAINTS. DID HAVE SOME HIGH BLOOD SUGARS WHICH WERE TREATED PER EMAR. CALLED HOSPITALIST AND OBTAINED ORDER FOR ADDITIONAL SLIDING SCALE INSULIN AT 0200, SEE PREVIOUS NOTE. PT HAS SLEPT MOST OF NIGHT. HAS NOT GOTTEN OUT OF BED. CURRENTLY SLEEPING LIGHTLY. APPEARS IN NO ACUTE DISTRESS. REPORT TO ONCOMING RN.
--- NOTE | 2018-12-20 19:41 | NUR ---
SUMM- PT ALERT AND ORIENTED. TOLERATING FOOD AND FLUIDS. ADA DIET. BLOOD SUGARS 300'S BREAK AND LUNCH, DINNER SUGAR 496, CALLED DR COON, INCREASED INSULIN TO MED SS AND ADDED LANTUS. ALSO OBTAINED ORDER FOR PAIN MED FOR C/O R ARM PAIN. MEDICATED WITH TYLENOL WITH RELEIF. AMMONIA REFRIGERATION WORKER WALKED PT WITH WALKER AND INSTRUCTED TO WALK ON BALLS OF FEET, USING WALKER CLOSE BY FOR SUPPORT. WILL ENC PT TO INCREASE ACTIVITY. NEW DRY DRESSINGS PLACED TO BILAT FEET. NON ADHERANT GAUZE COVERING FOR PROTECTION. L FOOT AMP SITE APPEARS CLEAN WITH SCAB, NO DRAINAGE, NO SS OF INFECTION. R PLANTER ULCERATION APPROX .6CM DIAM, DRY, CLEANSED FOOT WITH NS AND PAINTED WITH BETADINE, APPLIED NONADHERANT GAUZE AND KERLEX. REPORTED TO BERTA.
--- NOTE | 2018-12-21 04:36 | NUR ---
NOC SHIFT SUMMARY PT PLEASANT AND COOPERATIVE WITH CARE. HAS STAYED IN BED THIS SHIFT THOUGH PER REPORT HE DID WALK YESTERDAY WITH PT. VSS. PT HAS SLEPT MOST OF NIGHT AND NOT VOICED ANY NEEDS. DRESSINGS TO FEET ARE C/D/I. PT APPEARS IN NO ACUTE DISTRESS. WILL CONTINUE TO MONITOR.
[2018-12-21 05:03] LABS: BASOPHILS ABSOLUTE AUTO 0.01 K/mm3 (0.00-0.23); BASOPHILS PERCENT AUTO 0 % (0-2); EOSINOPHILS PERCENT AUTO 0 % (0-6); Hematocrit 34.5 % (37.0-53.0); Hemoglobin 9.4 g/dL (13.5-17.5); IMMATURE GRAN ABSOLUTE AUTO 0.38 K/mm3 (0.00-0.10); IMMATURE GRAN PERCENT AUTO 2 % (0-1); LYMPHOCYTES ABSOLUTE AUTO 1.29 K/mm3 (0.84-5.20); LYMPHOCYTES PERCENT AUTO 8 % (21-46); MONOCYTES ABSOLUTE AUTO 0.77 K/mm3 (0.16-1.47); MONOCYTES PERCENT AUTO 5 % (4-13); Mean Corpuscular HGB 20.6 pg (26.0-34.0); Mean Corpuscular HGB Conc 27.2 g/dL (31.5-36.5); Mean Corpuscular Volume 76 fL (80-100); Mean Platelet Volume 9.6 fL (9.1-12.4); NEUTROPHILS ABSOLUTE AUTO 13.68 K/mm3 (1.96-9.15); NEUTROPHILS PERCENT AUTO 85 % (41-73); NRBC ABSOLUTE 0.09 K/mm3 (0.00-0.02); NRBC Auto 0.6 /100 WBC (0.0-0.2); Platelet Count 585 K/mm3 (150-400); RDW Coefficient Variation 18.5 % (11.7-14.2); RDW Standard Deviation 47.8 fL (35.1-46.3); Red Blood Cell Count 4.57 M/mm3 (4.30-5.90); White Blood Cell Count 16.13 K/mm3 (4.00-11.30)
[2018-12-21 05:25] LABS: Bun/Creatinine Ratio 36.4 (12.0-20.0); Calcium, Blood 8.9 mg/dL (8.5-10.1); Creatinine, Blood 1.54 mg/dL (0.60-1.20); Potassium, Blood 4.5 mmol/L (3.5-5.5)
[2018-12-21] MEDS ORDERED: Percocet 5-3251 EACH PO (13:43)
[2018-12-21] MEDS ORDERED: INSULANPEN SC (13:43)
[2018-12-21] MEDS ORDERED: PRED10 PO (13:44)
[2018-12-21] MEDS ORDERED: Thiamine HCl100 MG PO (13:44)
--- NOTE | 2018-12-21 15:00 | NUR ---
PT DISCHARGED 1430 WITH DC INSTRUCTIONS INCLUDING LANTUS ADMINISTRATION AND PT DEMONSTRATED HE COULD DO IT PRACTICING ON [place]. SENT WITH HARD SCRIPT FOR GLUCOMETER AND PERCOCET. W/C ESCORT TO CAR, SON TO DRIVE TO GET RX AND TAKE HOME. IV DC'D. FEET BANDAGES COVERING WOUNDS. USING SHOE TO GET AROUND. AMBULATING SBA.
== END 2018-12-21 14:35 | disposition home or self-care (01) | DRG 554 ==
LOC: ER 20:28 → MEDS 12-17 05:07 → ENPENDDIS 12-21 12:30 → MEDS 12-21 14:35
PROVIDERS: Family Medicine; Orthopaedic Surgery; Physician Assistant; Student in an Organized Health Care Education/Training Program; ADMIT Internal Medicine
PROC: 0S9D3ZX Drainage of Left Knee Joint, Percutaneous Approach, Diagnostic (ICD-10-PCS; principal; 2018-12-19)
PROC: 0S9C3ZX Drainage of Right Knee Joint, Percutaneous Approach, Diagnostic (ICD-10-PCS; 2018-12-20)
DX: M1A.9XX1 Chronic gout, unspecified, with tophus (tophi) (principal); M25.562 Pain in left knee; M25.561 Pain in right knee; D64.9 Anemia, unspecified; F10.10 Alcohol abuse, uncomplicated; I48.91 Unspecified atrial fibrillation; I12.9 Hypertensive chronic kidney disease with stage 1 through stage 4 chronic kidney disease, or unspecified chronic kidney disease; N18.3 Chronic kidney disease, stage 3 (moderate); R73.9 Hyperglycemia, unspecified; T38.0X5A Adverse effect of glucocorticoids and synthetic analogues, initial encounter; D50.9 Iron deficiency anemia, unspecified; Z89.412 Acquired absence of left great toe
CPT/HCPCS: 36415; 73562-LT; 73562-RT; 73620; 80048; 80053; 80076; 80162; 82274; 82607; 82728; 82746; 82947; 83036; 83540; 83550; 83605; 83735; 84100; 84145; 84550; 85014; 85018; 85025; 85027; 85651; 86140; 87040; 87070; 87075; 87205; 89051; 89060; 96365; 96367; 96375; 97162; 97530; 99284-25; J1885; J2543; J2916; J2920; J2930; J3010; J3370; J7030; J7050

== ENCOUNTER 2018-12-24 13:28 | Day surgery (SDC) | payer MEDICARE, BC ==
[~2018-12-24 13:28] MED LIST changes: +ELIQUIS5 MG PO; +FEBU40TA; +INSULANPEN SC; +PRED10 PO; +Percocet 5-3251 EACH PO; +Thiamine HCl100 MG PO
== END 2018-12-24 23:03 | disposition home or self-care (01) ==
LOC: WOUND 13:28
DX: E11.621 Type 2 diabetes mellitus with foot ulcer (principal); L97.512 Non-pressure chronic ulcer of other part of right foot with fat layer exposed; M1A.9XX1 Chronic gout, unspecified, with tophus (tophi); I11.0 Hypertensive heart disease with heart failure; I50.9 Heart failure, unspecified; I48.91 Unspecified atrial fibrillation; E78.5 Hyperlipidemia, unspecified; J45.909 Unspecified asthma, uncomplicated
CPT/HCPCS: Q4196

== ENCOUNTER 2018-12-30 06:09 | Inpatient (IN) | payer MEDICARE ==
[~2018-12-30] VITALS: Ht 190.5 cm; Wt 93.0 kg
[~2018-12-30 06:09] MED LIST changes: -BUME2 PO; +Bumetanide2 MG PO; -ELIQUIS5 MG PO; -FEBU40TA; +FEBU40TA PO
[2018-12-30 08:19] LABS: BASOPHILS ABSOLUTE AUTO 0.03 K/mm3 (0.00-0.23); BASOPHILS PERCENT AUTO 0 % (0-2); EOSINOPHILS PERCENT AUTO 0 % (0-6); Hematocrit 35.5 % (37.0-53.0); IMMATURE GRAN ABSOLUTE AUTO 0.27 K/mm3 (0.00-0.10); IMMATURE GRAN PERCENT AUTO 1 % (0-1); LYMPHOCYTES ABSOLUTE AUTO 0.51 K/mm3 (0.84-5.20); LYMPHOCYTES PERCENT AUTO 2 % (21-46); MONOCYTES ABSOLUTE AUTO 1.59 K/mm3 (0.16-1.47); MONOCYTES PERCENT AUTO 7 % (4-13); Mean Corpuscular HGB 21.5 pg (26.0-34.0); Mean Corpuscular HGB Conc 28.2 g/dL (31.5-36.5); Mean Corpuscular Volume 76 fL (80-100); Mean Platelet Volume 10.7 fL (9.1-12.4); NEUTROPHILS PERCENT AUTO 90 % (41-73); Platelet Count 385 K/mm3 (150-400); RDW Coefficient Variation 22.7 % (11.7-14.2); RDW Standard Deviation 59.3 fL (35.1-46.3); Red Blood Cell Count 4.66 M/mm3 (4.30-5.90)
[2018-12-30 08:43] LABS: Albumin, Blood 2.7 g/dL (3.4-5.0); Albumin/Globulin Ratio 0.6 (0.8-1.8); Bilirubin, Total 0.7 mg/dL (0.1-1.0); Bun/Creatinine Ratio 23.9 (12.0-20.0); Calcium, Blood 8.8 mg/dL (8.5-10.1); Creatinine, Blood 1.55 mg/dL (0.60-1.20); Globulin, Blood 4.3 g/dL (2.2-4.0); Potassium, Blood 4.6 mmol/L (3.5-5.5)
[2018-12-30] MEDS ORDERED: VITAMIN B-1100 MG PO (12:32)
[2018-12-30] MEDS ORDERED: Pravachol40 MG PO (12:49)
--- NOTE | 2018-12-30 13:26 | NUR ---
TRANSFER TO SURGICAL FLOOR PT TRANSFERED FROM ED TO ROOM 224 VIA [facility] AT 1300.
--- NOTE | 2018-12-30 13:33 | NUR ---
Patient gave permission to provide care and view chart.
--- NOTE | 2018-12-30 19:31 | NUR ---
SHIFT SUMMARY PT C/O INTERMITTANT KNEE PAIN R/T GOUT. PAIN CONTROLLED BY DILADID AND REPOSITIONING. DR. OLSEN IN TO SEE PT, PLAN FOR OR TOMORROW. LEFT INCISION WOUND CONTINUES TO HAVE FOUL ODOR AND DRAIN YELLOW/GREEN DISCHARGE.
[2018-12-31 04:12] LABS: BASOPHILS ABSOLUTE AUTO 0.02 K/mm3 (0.00-0.23); BASOPHILS PERCENT AUTO 0 % (0-2); EOSINOPHILS PERCENT AUTO 0 % (0-6); Hematocrit 32.6 % (37.0-53.0); IMMATURE GRAN ABSOLUTE AUTO 0.18 K/mm3 (0.00-0.10); IMMATURE GRAN PERCENT AUTO 1 % (0-1); LYMPHOCYTES ABSOLUTE AUTO 0.35 K/mm3 (0.84-5.20); LYMPHOCYTES PERCENT AUTO 2 % (21-46); MONOCYTES ABSOLUTE AUTO 0.57 K/mm3 (0.16-1.47); MONOCYTES PERCENT AUTO 3 % (4-13); Mean Corpuscular HGB 21.6 pg (26.0-34.0); Mean Corpuscular HGB Conc 27.6 g/dL (31.5-36.5); Mean Corpuscular Volume 78 fL (80-100); Mean Platelet Volume 10.4 fL (9.1-12.4); NEUTROPHILS ABSOLUTE AUTO 21.24 K/mm3 (1.96-9.15); NEUTROPHILS PERCENT AUTO 95 % (41-73); Platelet Count 321 K/mm3 (150-400); RDW Coefficient Variation 22.5 % (11.7-14.2); RDW Standard Deviation 61.9 fL (35.1-46.3); Red Blood Cell Count 4.17 M/mm3 (4.30-5.90); White Blood Cell Count 22.36 K/mm3 (4.00-11.30)
[2018-12-31 04:29] LABS: International Normalized Ratio 1.08; Prothrombin Time Results 11.4 Sec (9.7-11.5)
[2018-12-31 04:30] LABS: Albumin, Blood 2.1 g/dL (3.4-5.0); Albumin/Globulin Ratio 0.5 (0.8-1.8); Bilirubin, Total 0.8 mg/dL (0.1-1.0); Bun/Creatinine Ratio 22.3 (12.0-20.0); Calcium, Blood 8.4 mg/dL (8.5-10.1); Creatinine, Blood 1.48 mg/dL (0.60-1.20); Globulin, Blood 4.3 g/dL (2.2-4.0); Potassium, Blood 4.9 mmol/L (3.5-5.5); Total Protein, Blood 6.4 g/dL (6.4-8.2)
--- NOTE | 2018-12-31 06:19 | NUR ---
SHIFT SUMMARY PT AWAITING OR TODAY FOR DEBRIDEMENT OF GANGRENOUS L GREATER TOE AMPUTATION SITE. PT HAS HX OF GOUT WITH RELATED JOINT PAIN, SWELLING, AND DECREASED MOBILITY. PT C/O PAIN OCCASIONALLY THIS SHIFT, REP ADEQUATE RELIEF WITH PO MEDICATION. VSS THIS SHIFT, O2 SATS >90% ON RA. L FOOT SURGICAL SITE DRAINING YELLOW/GREEN/SEROSANGUINOUS FLUID, FOUL ODOR NOTED. ABSORBENT PADS IN PLACE AROUND LLE. PT REP CHRONIC WOUND ON BOTTOM OF R FOOT, RECEIVES WOUND CARE AT WOUND CLINIC WEEKLY, REFUSED CARE OF THAT WOUND THIS SHIFT. PT REMAINED IN BED THIS SHIFT DUE TO DECREASED MOBILITY AND PAIN R/T GOUT, VOIDING IN ATTENDS, URINAL USE ENCOURAGED. PT MADE NPO AT MIDNIGHT.
--- NOTE | 2018-12-31 13:16 | NUR ---
PT TO SDS. DR. OLSEN IN TO SEE PT AND GET CONSENT. LUNG SOUNDS CLEAR.
[2018-12-31 13:23] LABS: Body Fluid Crystals POS (NEGATIVE)
--- NOTE | 2018-12-31 13:29 | NUR ---
DR. YAÑEZ IN TO SEE PT AND OBTAIN CONSENT.
--- NOTE | 2018-12-31 13:51 | NUR ---
ATTEMPTS MADE X4 BY SEVERAL RN'S BEFORE ACCESS OBTAINED.
[2018-12-31 13:53] LABS: BODY FLUID RBC 0.279 (0-0); RBC Count, Synovial Fluid 279000 /mm3 (0-0); WBC Count, Synovial Fluid >200000 /mm3 (0-180)
--- NOTE | 2018-12-31 14:05 | NUR ---
PT TO OR AT APPROX 1300.
[2018-12-31 14:09] LABS: Monocytes/Macrophages, Synovia 4 % (0-65); Neutrophils, Synovial Fluid 96 % (0-24)
[2018-12-31 14:10] LABS: Appearance, Synovial Fluid Cloudy (Clear); Color, Synovial Fluid White (None-P Yel)
--- NOTE | 2018-12-31 14:41 | NUR ---
12/31/18 1441 Ayana Arias PT ON SCHEDULED ANTIBIOTICS AND RECIEVED PRIOR TO ARRIVAL TO OR.
--- NOTE | 2018-12-31 16:43 | NUR ---
PT FROM OR AT 1640. PATIENT ALERT AND ORIENTED. RA > 90%. LEFT GREAT TOE COVERED WITH ABDULAZIZ WRAP SANGUINOUS DRAINAGE ON KERLEX, NOTHING THROUGH TO ABDULAZIZ WRAP. R KNEE COVERED WITH ABDULAZIZ WRAP, NO SEEPAGE ONTO ABDULAZIZ WRAP. HEMOVAC IN PLACE SANGUINOUS DRAINAGE IN HEMOVAC. PT C/O PAIN, MEDICATED PER EMAR. FLUIDS RUNNING. CALL LIGHT IN REACH.
--- NOTE | 2018-12-31 17:11 | NUR ---
SHIFT SUMMARY S/P R-KNEE WASHOUT, L-GREATER TOE I&D OF PREVIOUS LEFT TOE AMPUTATION. AAOX4, CALLS APPROPRIATLY. L-GREATER TOE COVERED WITH ABDULAZIZ WRAP, KERLEX UNDER RED WITH SANGUINOUS DISCHARGE, NO SEEPAGE ONTO ABDULAZIZ WRAP. R-KNEE COVERED, ABDULAZIZ WRAP. HEMOVAC IN PLACE. PREVIOUS WOUND BANDAGED ON RIGHT FOOT. PT MEDICATED FOR PAIN X1 POSTOP, 1MG DILAUDID. INC/CON DURING SHIFT. HAS NOT GOTTEN OUT OF BED R/T TO PAIN FROM CHRONIC GOUT. VSS.
[2019-01-01 05:00] LABS: BASOPHILS ABSOLUTE AUTO 0.02 K/mm3 (0.00-0.23); BASOPHILS PERCENT AUTO 0 % (0-2); EOSINOPHILS ABSOLUTE AUTO 0.01 K/mm3 (0.00-0.68); EOSINOPHILS PERCENT AUTO 0 % (0-6); Hematocrit 29.6 % (37.0-53.0); Hemoglobin 8.1 g/dL (13.5-17.5); IMMATURE GRAN ABSOLUTE AUTO 0.13 K/mm3 (0.00-0.10); IMMATURE GRAN PERCENT AUTO 1 % (0-1); LYMPHOCYTES PERCENT AUTO 2 % (21-46); MONOCYTES ABSOLUTE AUTO 0.45 K/mm3 (0.16-1.47); MONOCYTES PERCENT AUTO 2 % (4-13); Mean Corpuscular HGB Conc 27.4 g/dL (31.5-36.5); Mean Corpuscular Volume 80 fL (80-100); NEUTROPHILS ABSOLUTE AUTO 18.59 K/mm3 (1.96-9.15); NEUTROPHILS PERCENT AUTO 95 % (41-73); NRBC ABSOLUTE 0.02 K/mm3 (0.00-0.02); NRBC Auto 0.1 /100 WBC (0.0-0.2); RDW Coefficient Variation 21.9 % (11.7-14.2); RDW Standard Deviation 62.6 fL (35.1-46.3); Red Blood Cell Count 3.68 M/mm3 (4.30-5.90)
[2019-01-01 05:54] LABS: Mean Platelet Volume 10.8 fL (9.1-12.4); Platelet Count 316 K/mm3 (150-400)
[2019-01-01 05:55] LABS: Alanine Aminotransfer (ALT/SGP 15 U/L (12-78); Albumin, Blood 1.8 g/dL (3.4-5.0); Albumin/Globulin Ratio 0.4 (0.8-1.8); Alk Phos 83 U/L (50-136); Anion Gap 9 mmol/L (6-16); Aspartate Aminotrans (AST/SGOT 9 U/L (12-37); Bilirubin, Total 0.6 mg/dL (0.1-1.0); Blood Urea Nitrogen 34 mg/dL (8-24); CO2, Blood 21 mmol/L (21-32); Calcium, Blood 8.2 mg/dL (8.5-10.1); Chloride, Blood 108 mmol/L (98-108); Creatinine, Blood 1.26 mg/dL (0.60-1.20); Globulin, Blood 4.2 g/dL (2.2-4.0); Glomerular Filtration Rate >60 (60-); Glucose, Blood 203 mg/dL (70-99); Potassium, Blood 5.3 mmol/L (3.5-5.5); Sodium, Blood 138 mmol/L (136-145)
--- NOTE | 2019-01-01 06:43 | NUR ---
SHIFT SUMMARY: PT S/P L GREAT TOE AMPUTATION, I&D TO LEFT FOOT AND R KNEE. PAIN MANAGED WITH 10MG OXY. ABX INFUSING. HEMOVAC TO RIGHT KNEE WITH TOTAL OF 15ML OF SANGUINOUS FLUID. VOIDING IN URINAL. RODERICK PO. DENIES N/V. COVERED WITH INSULIN PER EMAR.
[2019-01-01 10:23] LABS: Vancomycin, Trough 12.7 ug/mL (5.0-10.0)
--- NOTE | 2019-01-01 16:00 | NUR ---
SHIFT SUMMARY POD 1 L GREAT TOE AMPUTATION AND R KNEE I&D. HEMOVAC REMOVED TODAY, GAUZE IN PLACE UNDER ABDULAZIZ WRAP. LEFT FOOT GAUZE UNDER ABDULAZIZ WRAP, DRY RED DRAINAGE ON GAUZE. PT AAOX4 TODAY, CALLING APPROPRIATLY. 0XY 10MG 3 TIMES FOR PAIN. DENIES NAUSEA. CHANGED TO FWB ON R FOOT. PT TOLERATING PO WELL.
--- NOTE | 2019-01-02 05:16 | NUR ---
SHIFT SUMMARY: NO ACUTE CHANGES OVERNIGHT. PT S/P LEFT GREAT TOE AMPUTATION AND RIGHT KNEE I&D. DRESSINGS TO BLE CDI. PAIN MANAGED WITH 10MG OXY PER EMAR. PT ABLE TO SLEEP T/O NIGHT. PT COVERED WITH SLIDING SCALE FOR BG OF 275. NEW ORDER FOR SCHED LANTUS. PT FULL WEIGHT BEARING TO RLE. WILL WORK WITH PT TODAY.
--- NOTE | 2019-01-02 14:56 | NUR ---
ASSUMING CARE OF PT AT THIS TIME. PT DENIES ANY COMPLAINTS OR NEEDS. CALL LIGHT WITHIN REACH.
[2019-01-02 15:16] LABS: BASOPHILS PERCENT AUTO 0 % (0-2); EOSINOPHILS PERCENT AUTO 0 % (0-6); Hematocrit 30.6 % (37.0-53.0); Hemoglobin 8.4 g/dL (13.5-17.5); IMMATURE GRAN PERCENT AUTO 1 % (0-1); LYMPHOCYTES ABSOLUTE AUTO 0.35 K/mm3 (0.84-5.20); LYMPHOCYTES PERCENT AUTO 3 % (21-46); MONOCYTES ABSOLUTE AUTO 0.34 K/mm3 (0.16-1.47); MONOCYTES PERCENT AUTO 3 % (4-13); Mean Corpuscular HGB 21.6 pg (26.0-34.0); Mean Corpuscular HGB Conc 27.5 g/dL (31.5-36.5); Mean Corpuscular Volume 79 fL (80-100); Mean Platelet Volume 9.9 fL (9.1-12.4); NEUTROPHILS ABSOLUTE AUTO 9.95 K/mm3 (1.96-9.15); NEUTROPHILS PERCENT AUTO 93 % (41-73); NRBC ABSOLUTE 0.02 K/mm3 (0.00-0.02); NRBC Auto 0.2 /100 WBC (0.0-0.2); Platelet Count 384 K/mm3 (150-400); RDW Coefficient Variation 21.2 % (11.7-14.2); RDW Standard Deviation 59.4 fL (35.1-46.3); Red Blood Cell Count 3.88 M/mm3 (4.30-5.90); White Blood Cell Count 10.74 K/mm3 (4.00-11.30)
--- NOTE | 2019-01-02 18:07 | NUR ---
SHIFT SUMMARY SINCE ASSUMING CARE, PT DOING WELL. CONTINUING TO ELEVATE BLE AND ICING R KNEE. IV SL. PT DENIES PAIN AT THIS TIME. RODERICK REG DIET. PT NEEDS PICC LINE PLACED FOR IV ABX 4-6 WEEKS AT DISCHARGE. PT ALSO NEEDS X2 MORE MIDNIGHTS BEFORE BEING ABLE TO GO TO SNF. CALL LIGHT WITHIN REACH. WILL CONT TO MONITOR.
--- NOTE | 2019-01-03 06:06 | NUR ---
SHIFT SUMMARY PT IS POD 3 I&D OF LEFT GREAT TOE AMPUTATION SITE AND I&D OF RIGHT KNEE. HE IS AWAITING SNF PLACEMENT, RECEIVING IV ABX PER ORDERS. PT IS A&O, ABLE TO MAKE NEEDS KNOWN. WORKING WITH PT FOR RLE STRENGTH, FULL WT BEARING TO THAT LEG. MEDICATING FOR PAIN PER EMAR. PT IS HAVING LARGE LIQUID BMS, WILL PASS ON TO DAY SHIFT TO NOTIFY MD AND GET A SAMPLE. PT IS EATING, DRINKING, VOIDING WITHOUT ISSUE. WILL CTM UNTIL PASS TO NEXT SHIFT.
--- NOTE | 2019-01-03 07:50 | NUR ---
pt req pain meds for his r knee pt has ice to it 2 tabs oxy given also reports having loose stool had not had a bm yet untill yesterday
--- NOTE | 2019-01-03 10:21 | NUR ---
DR LOWE BY TO SEE PT DISCUSSED PT'S LOOSE STOOL AND HOLDING HIS STOOL SOFTNERS ALSO TOLD DR NO ONE AVAIL TODAY TO PLACE PICC LINE
[2019-01-03 10:23] LABS: Creatinine, Blood 1.21 mg/dL (0.60-1.20); Vancomycin, Trough 16.3 ug/mL (5.0-10.0)
--- NOTE | 2019-01-03 11:11 | NUR ---
PHYSICAL THERAPY WORKED WITH PT NEW ICE PACK APPLIED TO KNEE
--- NOTE | 2019-01-03 12:45 | NUR ---
UPDATE GIVEN TO DR HOLM
--- NOTE | 2019-01-03 14:44 | NUR ---
PT WATCHING TV REQ A DIET SODA
--- NOTE | 2019-01-03 16:00 | NUR ---
NEW ICE PACK PLACE TO KNEE
--- NOTE | 2019-01-03 17:19 | NUR ---
PT EATING DINNER
--- NOTE | 2019-01-03 20:15 | NUR ---
UPDATED TO PT'S DAUGHTER REGUARDING NUTRITION AND PLAN FOR CT SCAN. VOICES UNDERSTANDING AND THANKS NURSING FOR INFORMATION. WILL CONTINUE TO MONITOR.
[2019-01-04 04:52] LABS: BASOPHILS ABSOLUTE AUTO 0.01 K/mm3 (0.00-0.23); BASOPHILS PERCENT AUTO 0 % (0-2); EOSINOPHILS PERCENT AUTO 0 % (0-6); Hematocrit 31.8 % (37.0-53.0); Hemoglobin 8.8 g/dL (13.5-17.5); IMMATURE GRAN ABSOLUTE AUTO 0.08 K/mm3 (0.00-0.10); IMMATURE GRAN PERCENT AUTO 1 % (0-1); LYMPHOCYTES ABSOLUTE AUTO 0.92 K/mm3 (0.84-5.20); LYMPHOCYTES PERCENT AUTO 7 % (21-46); MONOCYTES ABSOLUTE AUTO 0.64 K/mm3 (0.16-1.47); MONOCYTES PERCENT AUTO 5 % (4-13); Mean Corpuscular HGB 21.6 pg (26.0-34.0); Mean Corpuscular HGB Conc 27.7 g/dL (31.5-36.5); Mean Corpuscular Volume 78 fL (80-100); NEUTROPHILS ABSOLUTE AUTO 11.52 K/mm3 (1.96-9.15); NEUTROPHILS PERCENT AUTO 87 % (41-73); NRBC ABSOLUTE 0.02 K/mm3 (0.00-0.02); NRBC Auto 0.2 /100 WBC (0.0-0.2); Platelet Count 328 K/mm3 (150-400); RDW Coefficient Variation 20.7 % (11.7-14.2); RDW Standard Deviation 57.4 fL (35.1-46.3); Red Blood Cell Count 4.08 M/mm3 (4.30-5.90); White Blood Cell Count 13.17 K/mm3 (4.00-11.30)
[2019-01-04 05:09] LABS: Albumin, Blood 2.1 g/dL (3.4-5.0); Albumin/Globulin Ratio 0.5 (0.8-1.8); Bilirubin, Total 0.5 mg/dL (0.1-1.0); Bun/Creatinine Ratio 34.1 (12.0-20.0); Calcium, Blood 8.2 mg/dL (8.5-10.1); Creatinine, Blood 1.32 mg/dL (0.60-1.20); Globulin, Blood 4.1 g/dL (2.2-4.0); Potassium, Blood 4.5 mmol/L (3.5-5.5); Total Protein, Blood 6.2 g/dL (6.4-8.2)
--- NOTE | 2019-01-04 07:13 | NUR ---
SHIFT SUMMARY LYING IN SEMI FOWLERS WITH EYES CLOSED. PLEASANT AND COOPERATIVE, RESTED WITH EASE. DENIES PAIN, DISCOMFORT, OR FURTHER NEEDS AT THIS TIME. SAFETY MEASURES IN PLACE. WILL GIVE HAND OFF TO ONCOMING SHIFT USING SBAR.
--- NOTE | 2019-01-04 08:32 | NUR ---
PT C/O INCREASING PAIN. MEDICATED PER EMAR. TOLERATING FULL LIQUID BREAKFAST WITH NO REPORTS OF N/V. WAITING FOR PICC LINE PLACEMENT SATURDAY FOR ANTIBIOTIC THERAPY
--- NOTE | 2019-01-04 18:06 | NUR ---
SHIFT SUMMARY PT REPORTS PASSING LOOSE STOOL LAST NIGHT. HOLDING BOWEL CARE MEDS AT THIS TIME. R LEG ELEVATED WITH ICE PACK TO R KNEE. MEDICATED FOR PAIN PER EMAR THROUGHOUT SHIFT WITH PAIN 5-6/10. PT WOULD LIKE BOARD UPDATED WHEN NEXT PAIN MED IS AVAILABLE. AWAITING PICC LINE TOMORROW FOR ANTIBIOTICS.
--- NOTE | 2019-01-05 04:46 | NUR ---
SHIFT SUMMARY PT IS S/P I&D OF THE LEFT FOOT AND RIGHT KNEE. HE HAS BEEN WORKING WITH THERAPY ON STANDING AND WEIGHT BEARING. MEDICATING FOR PAIN PER EMAR ABOUT Q4H AND ICE TO RIGHT KNEE PT TOLERATES. PLAN IS FOR PICC PLACEMENT TODAY SO HE CAN D/C TO SNF. PT IS A&O, ABLE TO MAKE NEEDS KNOWN. PT SL, TOLERATING FLUIDS, EATING W/O ISSUE. CBGS STILL REQUIRING COVERAGE BUT IMPROVED. ENC REPOSITIONING. WILL CTM UNTIL PASS TO NEXT SHIFT.
--- NOTE | 2019-01-05 16:34 | NUR ---
DISCHARGE SUMMARY PT A&OX4, VSS, DRESSING CHANGES BLE. PICC LINE PLACED. REPORT CALLED TO ELROY AT [facility]. IV DC'D.
== END 2019-01-05 17:30 | DRG 486 ==
LOC: ER 06:09 → SURS 11:11 → ER 11:11 → SURS 11:11 → ER 12-31 11:23 → SURS 12-31 11:23
PROVIDERS: Orthopaedic Surgery; Physician Assistant; Podiatrist Foot & Ankle Surgery; ADMIT Internal Medicine
PROC: 0QBP0ZZ Excision of Left Metatarsal, Open Approach (ICD-10-PCS; principal; 2018-12-31 13:30)
PROC: 0SBC4ZZ Excision of Right Knee Joint, Percutaneous Endoscopic Approach (ICD-10-PCS; 2018-12-31 13:30)
PROC: 02HV33Z Insertion of Infusion Device into Superior Vena Cava, Percutaneous Approach (ICD-10-PCS; 2019-01-05)
DX: M00.061 Staphylococcal arthritis, right knee (principal); M86.9 Osteomyelitis, unspecified; I13.0 Hypertensive heart and chronic kidney disease with heart failure and stage 1 through stage 4 chronic kidney disease, or unspecified chronic kidney disease; I50.30 Unspecified diastolic (congestive) heart failure; B95.61 Methicillin susceptible Staphylococcus aureus infection as the cause of diseases classified elsewhere; E11.69 Type 2 diabetes mellitus with other specified complication; E11.65 Type 2 diabetes mellitus with hyperglycemia; Z79.4 Long term (current) use of insulin; Z89.412 Acquired absence of left great toe; E11.22 Type 2 diabetes mellitus with diabetic chronic kidney disease; N18.3 Chronic kidney disease, stage 3 (moderate); D63.1 Anemia in chronic kidney disease; M10.9 Gout, unspecified
CPT/HCPCS: 36415; 36569; 71045; 73560-RT; 73630; 80053; 80202; 82565; 82947; 83036; 83605; 84550; 85025; 85610; 85651; 85730; 86140; 87015; 87040; 87070; 87071; 87075; 87077; 87116; 87147; 87186; 87205; 87206; 88305; 88311; 89051; 89060; 93005; 93010; 93306; 96365; 96367; 96375; 97110; 97162; 97166; 97530; 97535; 99284-25; A9270; C1751; J0171; J1170; J2405; J2543; J2704; J2920; J3010; J3370; J7050; J7120; J7512

== ENCOUNTER → 2019-01-19 | Outpatient (CLI) | payer MEDICARE ==
[~2019-01-19] MED LIST changes: +ALLO300 PO; +B-100 COMPLEX100 MG PO; +BASAGLAR K100 UNIT/1 SC; +Bactrim Ds Tab1 EACH PO; +CIPRO500 MG PO; +COLCHICINE0.6 MG PO; +DOCU100 PO; +ELIQUIS5 MG PO; +HYDR1TAB94; +HYDR1TAB94 PO; +Humalog Mi100 UNIT/4 SC; +MELO7.5 PO; +OXYC5 PO; +PRED20 PO; +Pravachol40 MG PO; +TRAM50 PO; +VANCO 750750 MG/150 IV; +VANCOMYCIN1.25 GM/21 IV; +VITAMIN B-1100 MG PO; +XARELTO1 EACH PO
[2019-01-19 16:59] LABS: Automated BF RBC Count 0.237 M/mm3 (0-0); RBC Count, Body Fluid 237000 /mm3 (0-0)
[2019-01-19 17:43] LABS: Body Fluid Crystals POS (NEGATIVE)
[2019-01-19 17:53] LABS: Body Fluid WBC Count 42450 /mm3 (0-999)
[2019-01-19 19:30] LABS: Appearance, Body Fluid Bloody (Clear); Color, Body Fluid Red (None-Yellow); Total Cell Count, Body Fluid 100
== END | disposition home or self-care (01) ==
LOC: LAB SHORT 16:05 → LAB 16:05
PROVIDERS: Orthopaedic Surgery
DX: M25.562 Pain in left knee (principal)
CPT/HCPCS: 87070; 87075; 87205; 89051; 89060

== ENCOUNTER 2019-01-30 00:23 | Day surgery (SDC) | payer MEDICARE, BC ==
[~2019-01-30] VITALS: Ht 190.5 cm; Wt 81.4 kg
[~2019-01-30 00:23] MED LIST changes: -ALLO300 PO; -B-100 COMPLEX100 MG PO; -BASAGLAR K100 UNIT/1 SC; -Bactrim Ds Tab1 EACH PO; -CIPRO500 MG PO; -COLCHICINE0.6 MG PO; -DOCU100 PO; -ELIQUIS5 MG PO; -HYDR1TAB94; -HYDR1TAB94 PO; -Humalog Mi100 UNIT/4 SC; -MELO7.5 PO; -OXYC5 PO; -PRED20 PO; -TRAM50 PO; -VANCO 750750 MG/150 IV; -VANCOMYCIN1.25 GM/21 IV; -XARELTO1 EACH PO
[2019-01-30] MEDS ORDERED: COLCHICINE0.6 MG PO (10:33)
[2019-01-30] MEDS ORDERED: Humalog Mi100 UNIT/4 SC (10:34)
[2019-01-30] MEDS ORDERED: DOCU100 PO (10:34)
[2019-01-30 10:35] LABS: Creatinine, Blood 1.72 mg/dL (0.60-1.20); Vancomycin, Trough 17.5 ug/mL (5.0-10.0)
[2019-01-30] MEDS ORDERED: INSULANPEN SC (10:35)
[2019-01-30] MEDS ORDERED: PRED20 PO (10:38)
[2019-01-30] MEDS ORDERED: OXYC5 PO (10:39)
[2019-01-30] MEDS ORDERED: PANT40 PO (10:40)
[2019-01-30] MEDS ORDERED: VANCOMYCIN1.25 GM/21 IV (10:41)
== END 2019-01-30 12:19 | disposition home or self-care (01) ==
LOC: ATC 00:23
PROVIDERS: Family Medicine
DX: M86.172 Other acute osteomyelitis, left ankle and foot (principal); M00.9 Pyogenic arthritis, unspecified; L03.116 Cellulitis of left lower limb; I12.9 Hypertensive chronic kidney disease with stage 1 through stage 4 chronic kidney disease, or unspecified chronic kidney disease; N18.3 Chronic kidney disease, stage 3 (moderate); M10.9 Gout, unspecified; J45.909 Unspecified asthma, uncomplicated; E78.00 Pure hypercholesterolemia, unspecified; Z79.899 Other long term (current) drug therapy; Z79.01 Long term (current) use of anticoagulants; Z79.4 Long term (current) use of insulin
CPT/HCPCS: 80202; 82565; 96365; J3370

== ENCOUNTER 2019-01-31 09:33 | Day surgery (SDC) | payer MEDICARE, BC ==
[~2019-01-31 09:33] MED LIST changes: +COLCHICINE0.6 MG PO; +DOCU100 PO; +Humalog Mi100 UNIT/4 SC; +OXYC5 PO; +PRED20 PO; +VANCOMYCIN1.25 GM/21 IV
== END 2019-01-31 11:00 | disposition home or self-care (01) ==
LOC: ATC 09:33
DX: M86.172 Other acute osteomyelitis, left ankle and foot (principal); M00.9 Pyogenic arthritis, unspecified; L03.116 Cellulitis of left lower limb; I12.9 Hypertensive chronic kidney disease with stage 1 through stage 4 chronic kidney disease, or unspecified chronic kidney disease; N18.3 Chronic kidney disease, stage 3 (moderate); M10.9 Gout, unspecified; I48.1 Persistent atrial fibrillation; J45.909 Unspecified asthma, uncomplicated; E78.00 Pure hypercholesterolemia, unspecified; Z79.899 Other long term (current) drug therapy; Z79.01 Long term (current) use of anticoagulants; Z79.4 Long term (current) use of insulin
CPT/HCPCS: 96365; J3370

== ENCOUNTER 2019-02-01 09:25 | Day surgery (SDC) | payer MEDICARE, BC | END 2019-02-01 10:50 | disposition home or self-care (01) | LOC: ATC 09:25 | DX: M86.172 Other acute osteomyelitis, left ankle and foot (principal); M00.9 Pyogenic arthritis, unspecified; L03.116 Cellulitis of left lower limb; I12.9 Hypertensive chronic kidney disease with stage 1 through stage 4 chronic kidney disease, or unspecified chronic kidney disease; N18.3 Chronic kidney disease, stage 3 (moderate); M10.9 Gout, unspecified; I48.1 Persistent atrial fibrillation; Z79.899 Other long term (current) drug therapy; Z79.01 Long term (current) use of anticoagulants; Z79.4 Long term (current) use of insulin; Z79.52 Long term (current) use of systemic steroids; Z87.891 Personal history of nicotine dependence | CPT/HCPCS: 96365; J3370 ==

== ENCOUNTER 2019-02-02 00:15 | Day surgery (SDC) | payer MEDICARE, BC ==
[~2019-02-02] VITALS: Ht 190.5 cm; Wt 83.2 kg
[2019-02-02 12:41] LABS: Creatinine, Blood 1.71 mg/dL (0.60-1.20); Vancomycin, Trough 24.6 ug/mL (5.0-10.0)
--- NOTE | 2019-02-02 12:59 | NUR ---
VANCO TROUGH HIGH. NO DOSE TODAY.
== END 2019-02-02 12:50 | disposition home or self-care (01) ==
LOC: ATC 00:15
PROVIDERS: Family Medicine
DX: M86.172 Other acute osteomyelitis, left ankle and foot (principal); M00.9 Pyogenic arthritis, unspecified; L03.116 Cellulitis of left lower limb; I12.9 Hypertensive chronic kidney disease with stage 1 through stage 4 chronic kidney disease, or unspecified chronic kidney disease; N18.3 Chronic kidney disease, stage 3 (moderate); M10.9 Gout, unspecified; I48.1 Persistent atrial fibrillation; J45.909 Unspecified asthma, uncomplicated; E78.00 Pure hypercholesterolemia, unspecified; Z79.899 Other long term (current) drug therapy; F17.210 Nicotine dependence, cigarettes, uncomplicated; Z79.01 Long term (current) use of anticoagulants; Z79.4 Long term (current) use of insulin; Z79.52 Long term (current) use of systemic steroids
CPT/HCPCS: 36415; 80202; 82565; 96365; 99211

== ENCOUNTER 2019-02-03 00:13 | Day surgery (SDC) | payer MEDICARE, BC ==
[2019-02-03 15:21] LABS: BASOPHILS ABSOLUTE AUTO 0.03 K/mm3 (0.00-0.23); BASOPHILS PERCENT AUTO 1 % (0-2); EOSINOPHILS ABSOLUTE AUTO 0.02 K/mm3 (0.00-0.68); EOSINOPHILS PERCENT AUTO 0 % (0-6); Hematocrit 38.2 % (37.0-53.0); Hemoglobin 10.5 g/dL (13.5-17.5); IMMATURE GRAN ABSOLUTE AUTO 0.04 K/mm3 (0.00-0.10); IMMATURE GRAN PERCENT AUTO 1 % (0-1); LYMPHOCYTES PERCENT AUTO 19 % (21-46); MONOCYTES PERCENT AUTO 18 % (4-13); Mean Corpuscular HGB 21.8 pg (26.0-34.0); Mean Corpuscular HGB Conc 27.5 g/dL (31.5-36.5); Mean Corpuscular Volume 79 fL (80-100); NEUTROPHILS ABSOLUTE AUTO 3.47 K/mm3 (1.96-9.15); NEUTROPHILS PERCENT AUTO 61 % (41-73); Platelet Count 170 K/mm3 (150-400); RDW Coefficient Variation 21.5 % (11.7-14.2); RDW Standard Deviation 61.2 fL (35.1-46.3); Red Blood Cell Count 4.82 M/mm3 (4.30-5.90); White Blood Cell Count 5.66 K/mm3 (4.00-11.30)
[2019-02-04] MEDS ORDERED: VANCO 750750 MG/150 IV (10:45)
== END 2019-02-03 14:44 | disposition home or self-care (01) ==
LOC: ATC 00:13
PROVIDERS: Orthopaedic Surgery
DX: M86.172 Other acute osteomyelitis, left ankle and foot (principal); M00.9 Pyogenic arthritis, unspecified; L03.116 Cellulitis of left lower limb; M25.562 Pain in left knee; I12.9 Hypertensive chronic kidney disease with stage 1 through stage 4 chronic kidney disease, or unspecified chronic kidney disease; N18.3 Chronic kidney disease, stage 3 (moderate); I48.1 Persistent atrial fibrillation; J45.909 Unspecified asthma, uncomplicated; E78.00 Pure hypercholesterolemia, unspecified; M10.9 Gout, unspecified; Z79.899 Other long term (current) drug therapy; Z79.4 Long term (current) use of insulin; Z87.891 Personal history of nicotine dependence
CPT/HCPCS: 85025; 85651; 86140; 96365; J3370

== ENCOUNTER 2019-02-04 00:09 | Day surgery (SDC) | payer MEDICARE, BC ==
[2019-02-04] MEDS ORDERED: VANCO 750750 MG/150 IV (10:45)
== END 2019-02-04 10:37 | disposition home or self-care (01) ==
LOC: ATC 00:09
DX: M86.172 Other acute osteomyelitis, left ankle and foot (principal); M00.9 Pyogenic arthritis, unspecified; L03.116 Cellulitis of left lower limb; I12.9 Hypertensive chronic kidney disease with stage 1 through stage 4 chronic kidney disease, or unspecified chronic kidney disease; N18.3 Chronic kidney disease, stage 3 (moderate); I48.1 Persistent atrial fibrillation; J45.909 Unspecified asthma, uncomplicated; M10.9 Gout, unspecified; E78.00 Pure hypercholesterolemia, unspecified; M19.90 Unspecified osteoarthritis, unspecified site; Z79.899 Other long term (current) drug therapy; Z79.01 Long term (current) use of anticoagulants; Z79.4 Long term (current) use of insulin; Z79.52 Long term (current) use of systemic steroids
CPT/HCPCS: 96365; J3370

== ENCOUNTER 2019-02-05 09:17 | Day surgery (SDC) | payer MEDICARE, BC ==
[~2019-02-05 09:17] MED LIST changes: +VANCO 750750 MG/150 IV
[2019-02-05 10:43] LABS: Creatinine, Blood 1.73 mg/dL (0.60-1.20); Vancomycin, Trough 20.5 ug/mL (5.0-10.0)
--- NOTE | 2019-02-05 11:29 | NUR ---
NO VANCOMYCIN GIVEN TODAY PER RESULTS OF LAB PER PHARMACY.
== END 2019-02-05 10:50 | disposition home or self-care (01) ==
LOC: ATC 09:17
PROVIDERS: Family Medicine
DX: M00.9 Pyogenic arthritis, unspecified (principal); R79.82 Elevated C-reactive protein (CRP); R70.0 Elevated erythrocyte sedimentation rate; M10.061 Idiopathic gout, right knee; M10.062 Idiopathic gout, left knee; E11.22 Type 2 diabetes mellitus with diabetic chronic kidney disease; N18.3 Chronic kidney disease, stage 3 (moderate); I48.1 Persistent atrial fibrillation; Z89.412 Acquired absence of left great toe; Z79.899 Other long term (current) drug therapy; Z79.01 Long term (current) use of anticoagulants; Z87.891 Personal history of nicotine dependence; Z79.4 Long term (current) use of insulin; Z95.0 Presence of cardiac pacemaker; Z85.828 Personal history of other malignant neoplasm of skin
CPT/HCPCS: 36592; 80202; 82565

== ENCOUNTER 2019-02-06 07:58 | Day surgery (SDC) | payer MEDICARE, BC ==
[2019-02-06 10:57] LABS: Creatinine, Blood 1.77 mg/dL (0.60-1.20); Vancomycin, Trough 14.2 ug/mL (5.0-10.0)
== END 2019-02-06 12:14 | disposition home or self-care (01) ==
LOC: ATC 07:58
PROVIDERS: Family Medicine
DX: M86.172 Other acute osteomyelitis, left ankle and foot (principal); M00.9 Pyogenic arthritis, unspecified; L03.116 Cellulitis of left lower limb; I12.9 Hypertensive chronic kidney disease with stage 1 through stage 4 chronic kidney disease, or unspecified chronic kidney disease; N18.3 Chronic kidney disease, stage 3 (moderate); I48.1 Persistent atrial fibrillation; J45.909 Unspecified asthma, uncomplicated; M10.9 Gout, unspecified; E78.00 Pure hypercholesterolemia, unspecified; Z79.899 Other long term (current) drug therapy; Z79.01 Long term (current) use of anticoagulants; Z79.4 Long term (current) use of insulin
CPT/HCPCS: 80202; 82565; 96365; J3370

== ENCOUNTER 2019-02-07 00:23 | Day surgery (SDC) | payer MEDICARE, BC | END 2019-02-07 22:52 | disposition home or self-care (01) | LOC: ATC 00:23 | DX: M00.061 Staphylococcal arthritis, right knee (principal); L03.116 Cellulitis of left lower limb; B95.62 Methicillin resistant Staphylococcus aureus infection as the cause of diseases classified elsewhere; E11.69 Type 2 diabetes mellitus with other specified complication; M86.172 Other acute osteomyelitis, left ankle and foot; M10.461 Other secondary gout, right knee; Z79.899 Other long term (current) drug therapy; Z79.01 Long term (current) use of anticoagulants; Z79.4 Long term (current) use of insulin; Z79.891 Long term (current) use of opiate analgesic; Z87.891 Personal history of nicotine dependence; Z95.0 Presence of cardiac pacemaker; Z89.412 Acquired absence of left great toe ==

== ENCOUNTER 2019-02-08 09:25 | Day surgery (SDC) | payer MEDICARE, BC ==
[2019-02-08 10:20] LABS: Creatinine, Blood 1.61 mg/dL (0.60-1.20); Vancomycin, Trough 10.8 ug/mL (5.0-10.0)
--- NOTE | 2019-02-08 10:51 | NUR ---
BLOOD DRAW: PICC NOT DRAWING BLOOD FROM EITHER PORT. LAB WAS CALLED TO DRAW VANCO TROUGH AND SR CR
== END 2019-02-08 11:48 | disposition home or self-care (01) ==
LOC: ATC 09:25
PROVIDERS: Internal Medicine Infectious Disease
DX: M86.172 Other acute osteomyelitis, left ankle and foot (principal); L03.116 Cellulitis of left lower limb; M00.9 Pyogenic arthritis, unspecified; I12.9 Hypertensive chronic kidney disease with stage 1 through stage 4 chronic kidney disease, or unspecified chronic kidney disease; N18.3 Chronic kidney disease, stage 3 (moderate); I48.1 Persistent atrial fibrillation; J45.909 Unspecified asthma, uncomplicated; E78.00 Pure hypercholesterolemia, unspecified; Z79.899 Other long term (current) drug therapy; Z79.01 Long term (current) use of anticoagulants; Z79.4 Long term (current) use of insulin
CPT/HCPCS: 36415; 80202; 82565; 96365; J3370

== ENCOUNTER 2019-02-10 00:21 | Day surgery (SDC) | payer MEDICARE, BC ==
[2019-02-10 10:37] LABS: Creatinine, Blood 1.54 mg/dL (0.60-1.20); Vancomycin, Trough 8.2 ug/mL (5.0-10.0)
== END 2019-02-10 12:32 | disposition home or self-care (01) ==
LOC: ATC 00:21
PROVIDERS: Family Medicine
DX: M00.061 Staphylococcal arthritis, right knee (principal); L03.116 Cellulitis of left lower limb; M86.172 Other acute osteomyelitis, left ankle and foot; B95.62 Methicillin resistant Staphylococcus aureus infection as the cause of diseases classified elsewhere; E11.69 Type 2 diabetes mellitus with other specified complication; M86.8X7 Other osteomyelitis, ankle and foot; Z45.2 Encounter for adjustment and management of vascular access device; Z89.412 Acquired absence of left great toe; Z79.899 Other long term (current) drug therapy; Z79.01 Long term (current) use of anticoagulants; Z79.4 Long term (current) use of insulin; Z79.891 Long term (current) use of opiate analgesic; Z87.891 Personal history of nicotine dependence; Z95.828 Presence of other vascular implants and grafts
CPT/HCPCS: 36593; 80202; 82565; 96365; J2997; J3370

== ENCOUNTER 2019-02-12 00:24 | Day surgery (SDC) | payer MEDICARE, BC | END 2019-02-12 10:50 | disposition home or self-care (01) | LOC: ATC 00:24 | DX: M00.061 Staphylococcal arthritis, right knee (principal); L03.116 Cellulitis of left lower limb; M86.172 Other acute osteomyelitis, left ankle and foot; B95.62 Methicillin resistant Staphylococcus aureus infection as the cause of diseases classified elsewhere; E11.69 Type 2 diabetes mellitus with other specified complication; M86.8X7 Other osteomyelitis, ankle and foot; Z79.899 Other long term (current) drug therapy; Z79.01 Long term (current) use of anticoagulants; Z79.4 Long term (current) use of insulin; Z87.891 Personal history of nicotine dependence; Z79.891 Long term (current) use of opiate analgesic; Z95.828 Presence of other vascular implants and grafts | CPT/HCPCS: 96365; J3370 ==

== ENCOUNTER 2019-03-02 08:24 | Inpatient (IN) | payer MEDICARE ==
[~2019-03-02] VITALS: Ht 190.5 cm; Wt 73.1 kg
[2019-03-02] MEDS ORDERED: ALLO300 PO (08:48)
[2019-03-02] MEDS ORDERED: TRAM50 PO (08:48)
[2019-03-02] MEDS ORDERED: XARELTO1 EACH PO (08:48)
[2019-03-02] MEDS ORDERED: MELO7.5 PO (08:48)
[2019-03-02 09:39] LABS: BASOPHILS ABSOLUTE AUTO 0.05 K/mm3 (0.00-0.23); BASOPHILS PERCENT AUTO 0 % (0-2); EOSINOPHILS ABSOLUTE AUTO 0.09 K/mm3 (0.00-0.68); EOSINOPHILS PERCENT AUTO 1 % (0-6); Hematocrit 32.7 % (37.0-53.0); Hemoglobin 9.2 g/dL (13.5-17.5); IMMATURE GRAN ABSOLUTE AUTO 0.31 K/mm3 (0.00-0.10); IMMATURE GRAN PERCENT AUTO 2 % (0-1); LYMPHOCYTES ABSOLUTE AUTO 1.03 K/mm3 (0.84-5.20); LYMPHOCYTES PERCENT AUTO 6 % (21-46); MONOCYTES ABSOLUTE AUTO 1.05 K/mm3 (0.16-1.47); MONOCYTES PERCENT AUTO 6 % (4-13); Mean Corpuscular HGB Conc 28.1 g/dL (31.5-36.5); Mean Corpuscular Volume 78 fL (80-100); Mean Platelet Volume 9.1 fL (9.1-12.4); NEUTROPHILS ABSOLUTE AUTO 15.21 K/mm3 (1.96-9.15); NEUTROPHILS PERCENT AUTO 86 % (41-73); NRBC ABSOLUTE 0.02 K/mm3 (0.00-0.02); NRBC Auto 0.1 /100 WBC (0.0-0.2); Platelet Count 377 K/mm3 (150-400); RDW Coefficient Variation 18.9 % (11.7-14.2); RDW Standard Deviation 53.6 fL (35.1-46.3); Red Blood Cell Count 4.18 M/mm3 (4.30-5.90); White Blood Cell Count 17.74 K/mm3 (4.00-11.30)
[2019-03-02 09:58] LABS: Anion Gap 8 mmol/L (6-16); Blood Urea Nitrogen 30 mg/dL (8-24); Bun/Creatinine Ratio 24.4 (12.0-20.0); CO2, Blood 28 mmol/L (21-32); Calcium, Blood 9.2 mg/dL (8.5-10.1); Chloride, Blood 100 mmol/L (98-108); Creatinine, Blood 1.23 mg/dL (0.60-1.20); Glomerular Filtration Rate >60 (60-); Glucose, Blood 189 mg/dL (70-99); Potassium, Blood 3.9 mmol/L (3.5-5.5); Sodium, Blood 136 mmol/L (136-145)
[2019-03-02] MEDS ORDERED: BASAGLAR K100 UNIT/1 SC (12:02)
[2019-03-02] MEDS ORDERED: Pravachol40 MG PO (12:04)
[2019-03-02] MEDS ORDERED: FEBU40TA PO (12:04)
[2019-03-02] MEDS ORDERED: ELIQUIS5 MG PO (12:28)
--- NOTE | 2019-03-02 15:10 | NUR ---
SPOKE WITH DR. GOMEZ ABOUT SURGICAL CONSULT. DR CAMARILLO HE WOULD SEE PATIENT 03/03/19 MORNING.
--- NOTE | 2019-03-02 17:26 | NUR ---
ARRIVAL TO UNIT NEW ER ADMIT WITH SEPTIC R KNEE. ORTHO CONSULT PLACED. VSS EXCEPT PT SLIGHTLY TACHY IN THE 100S. TELE PLACED. PT REPORTS PAIN TOLERABLE AT REST. MEDICATED IN THE ER. PROTECTIVE MEPILEX TO HEELS PLACED AND PT DOES HAVE OPEN EXCORIATIONS TO COCCYX WITH MEPILEX PLACED AND PICS IN THE CHART. DR. WARNER NOTIFIED OF LACTIC ACID AND NEW ORDERS BEING PLACED. IV ABX PER ORDERS. PT ORIENTED TO ROOM AND CALL LIGHT.
[2019-03-02 17:28] LABS: BODY FLUID RBC 0.253 (0-0); RBC Count, Synovial Fluid 253000 /mm3 (0-0)
[2019-03-02 17:44] LABS: WBC Count, Synovial Fluid 17974 /mm3 (0-180)
[2019-03-02 18:31] LABS: Eos, Synovial Fluid 1 % (0-2); Neutrophils, Synovial Fluid 99 % (0-24)
[2019-03-02 18:32] LABS: Appearance, Synovial Fluid Cloudy (Clear); Color, Synovial Fluid Red (None-P Yel)
[2019-03-03 05:46] LABS: BASOPHILS ABSOLUTE AUTO 0.06 K/mm3 (0.00-0.23); BASOPHILS PERCENT AUTO 0 % (0-2); EOSINOPHILS PERCENT AUTO 1 % (0-6); Hematocrit 30.7 % (37.0-53.0); Hemoglobin 8.5 g/dL (13.5-17.5); IMMATURE GRAN ABSOLUTE AUTO 0.32 K/mm3 (0.00-0.10); IMMATURE GRAN PERCENT AUTO 2 % (0-1); LYMPHOCYTES ABSOLUTE AUTO 1.25 K/mm3 (0.84-5.20); LYMPHOCYTES PERCENT AUTO 8 % (21-46); MONOCYTES ABSOLUTE AUTO 1.29 K/mm3 (0.16-1.47); MONOCYTES PERCENT AUTO 8 % (4-13); Mean Corpuscular HGB 21.7 pg (26.0-34.0); Mean Corpuscular HGB Conc 27.7 g/dL (31.5-36.5); Mean Corpuscular Volume 79 fL (80-100); Mean Platelet Volume 8.9 fL (9.1-12.4); NEUTROPHILS ABSOLUTE AUTO 13.61 K/mm3 (1.96-9.15); NEUTROPHILS PERCENT AUTO 81 % (41-73); NRBC ABSOLUTE 0.02 K/mm3 (0.00-0.02); NRBC Auto 0.1 /100 WBC (0.0-0.2); Platelet Count 322 K/mm3 (150-400); RDW Coefficient Variation 18.9 % (11.7-14.2); RDW Standard Deviation 54.2 fL (35.1-46.3); Red Blood Cell Count 3.91 M/mm3 (4.30-5.90); White Blood Cell Count 16.73 K/mm3 (4.00-11.30)
[2019-03-03 06:06] LABS: Calcium, Blood 9.1 mg/dL (8.5-10.1); Creatinine, Blood 1.29 mg/dL (0.60-1.20); Potassium, Blood 3.8 mmol/L (3.5-5.5)
--- NOTE | 2019-03-03 07:57 | NUR ---
SUMMARY: NEW ADMIT RIGHT SEPTIC KNEE BY [facility] WITH DR. HOLM TO CONSULT TODAY. VSS, AFEBRILE, ROOM AIR. PAIN WELL CONTROLLED WITH 2 TABS NORCO AND PT NPO SINCE MIDNIGHT AWAITING ALTA CONSULT AND POSSIBLE PROCEDURE LATER THIS DAY.
--- NOTE | 2019-03-03 09:21 | NUR ---
DR HOLM HERE TO SEE PT.
--- NOTE | 2019-03-03 09:23 | NUR ---
DR HOLM REPORTS PT MAY EAT THIS AM, DOES NOT PLAN ON HAVING PROCEDURE TODAY.
--- NOTE | 2019-03-03 10:35 | NUR ---
DR DENISE BEEN TO SEE PT. SEE ORDERS.
--- NOTE | 2019-03-03 18:02 | NUR ---
SHIFT SUMMARY PT TOLERATING DIET. PT BEEN REPOSITIONED TODAY. PT BLE LEGS ELEVATED. PT HAS HEEL PROTECTOR DRESSINGS TO BOTH FEET. PT BEEN ASSISTED WITH ADL'S PRN. PT USING CALL LIGHT APPR.
--- NOTE | 2019-03-04 04:55 | NUR ---
SUMMARY: ADMIT DAY 3 ASPIRATION OF SEPTIC ARTHRITIS IN RIGHT KNEE ON [facility] SERVICE WITH DR. HOLM CONSULTING. REMAINS IN CONTACT PRECAUTIONS FOR MRSA. AFEBRILE, VSS, HYPOTENSION WITH PRN PAIN MEDICATION BUT PT REMAINS ASYMPTOMATIC. TOLERATING ADA DIET, CBG WNL, VOIDING CLEAR ARJUN URINE. CHRONIC SEVERE GOUT AND ARTHRITIS PAIN MANAGED TO TOLERABLE LEVEL WITH 2 TABS NORCO Q4 HOURS PRN. PT REMAINS IN [employer] AND IS COOPERATIVE WITH REPOSITIONING AND CARE.
[2019-03-04 05:39] LABS: Vancomycin, Trough 26.6 ug/mL (5.0-10.0)
--- NOTE | 2019-03-04 17:55 | NUR ---
PT HAS BEEN STABLE THIS SHIFT, AFEBRILE. CULTURES NEGATIVE AT THIS TIME. CONT TO HAVE PAIN IN JOINTS, MEDICATED WHITH NORCO NEEDED. PT NOT AMBULATORY AT BASELINE, DECLINED GETTING OOB THIS SHIFT. HAS BEEN TURNING SELF IN BED. BEDBATH GIVEN. EXCORIATION TO BUTTOKS, MEPILEX IN PLACE. MEPILEX ALSO ON HEELS PREVENTATIVELY. RODERICK DIET WELL. CONT FLUIDS. PT DOES NOT VOID MUCH NORMALLY R/T CKD. EDEMA TO BLE. SHARON HELD THIS AM PER PHARMACY AND CHANGED TO EVENING DOSE. LABS TO BE DRAWN 03/06. PT USES CALL LIGHT APPROPRIATELY NEEDED.
--- NOTE | 2019-03-05 06:38 | NUR ---
SUMMARY PT NOT ALLOWING REPOSITIONING AT BEGINNING OF SHIFT, BUT DID ALLOW SHIFT PROGRESSED. PT VERB PAIN MEDS KEEP PAIN FROM GETTING OUT OF CONTROL.HOWEVER, TAKING MAX TYLENOL DUE TO FREQUENCY OF MEDS. WILL SPEAK WITH DAY RN REGARDING THIS MAYBE THEY WILL NOTE THIS TO ON ROUNDS. PT VERB R SHOULDER MORE PAINFUL TONIGHT THAN LEG. REFUSES ICE OR HEAT TONIGHT.
--- NOTE | 2019-03-05 16:09 | NUR ---
IV SITE LEAKING, PER DR. WARNER OK TO NOT RESTART IV. PER DR. WARNER, WILL SWITCH IV MEDS TO PO OR DC.
--- NOTE | 2019-03-05 16:33 | NUR ---
SUMMARY: NO ACUTE CHANGE TODAY. PT IS A/O, VSS. NO COMPLAINT OF R KNEE PAIN, DOES REPORT R SHOULDER PAIN, MEDICATED PER EMAR. PT TURNED AND CHANGED, BM'S X2. WORKED WITH PT/OT, RECOMMENDING SNF PLACEMENT. PLAN IS DC TO SNF TOMORROW. WILL CTM AND REPORT TO NOC RN.
[2019-03-06 04:10] LABS: BASOPHILS ABSOLUTE AUTO 0.06 K/mm3 (0.00-0.23); BASOPHILS PERCENT AUTO 0 % (0-2); EOSINOPHILS ABSOLUTE AUTO 0.33 K/mm3 (0.00-0.68); EOSINOPHILS PERCENT AUTO 2 % (0-6); Hematocrit 30.7 % (37.0-53.0); Hemoglobin 8.4 g/dL (13.5-17.5); IMMATURE GRAN ABSOLUTE AUTO 0.36 K/mm3 (0.00-0.10); IMMATURE GRAN PERCENT AUTO 3 % (0-1); LYMPHOCYTES ABSOLUTE AUTO 1.86 K/mm3 (0.84-5.20); LYMPHOCYTES PERCENT AUTO 13 % (21-46); MONOCYTES ABSOLUTE AUTO 0.87 K/mm3 (0.16-1.47); MONOCYTES PERCENT AUTO 6 % (4-13); Mean Corpuscular HGB 21.7 pg (26.0-34.0); Mean Corpuscular HGB Conc 27.4 g/dL (31.5-36.5); Mean Corpuscular Volume 79 fL (80-100); Mean Platelet Volume 9.3 fL (9.1-12.4); NEUTROPHILS ABSOLUTE AUTO 10.35 K/mm3 (1.96-9.15); NEUTROPHILS PERCENT AUTO 75 % (41-73); NRBC ABSOLUTE 0.03 K/mm3 (0.00-0.02); NRBC Auto 0.2 /100 WBC (0.0-0.2); Platelet Count 414 K/mm3 (150-400); RDW Coefficient Variation 19.3 % (11.7-14.2); RDW Standard Deviation 55.1 fL (35.1-46.3); Red Blood Cell Count 3.87 M/mm3 (4.30-5.90); White Blood Cell Count 13.83 K/mm3 (4.00-11.30)
[2019-03-06 04:32] LABS: Vancomycin, Random 17.6 ug/mL
--- NOTE | 2019-03-06 06:54 | NUR ---
SUMMARY PT FELT CONSTIPATED DURING NOC. DRANK PRUNE JUICE. HAVING BM NOW.
--- NOTE | 2019-03-06 14:33 | NUR ---
ATTEMPTED TO GIVE REPORT TO [facility]OWER D[facility] AT [facility] AT 1407. RN IN A PROCEEDURE. TRANSPORT HERE FOR PT AT 1430, PT MOVED ON TO [facility], AND THINGS PACKED UP. PACKET AND SCRIPTS GIVEN TO TRANSPORT TEAM. PT LEFT UNIT AT ABOUT 1420. REPORT CALLED TO POWER DÍAZ AT [facility] AT 1425
== END 2019-03-06 14:32 | DRG 872 ==
LOC: ER 08:24 → SURS 13:22
PROVIDERS: Emergency Medicine; ADMIT Student in an Organized Health Care Education/Training Program
PROC: 0S9C3ZX Drainage of Right Knee Joint, Percutaneous Approach, Diagnostic (ICD-10-PCS; principal; 2019-03-02)
PROC: 3E1U38X Irrigation of Joints using Irrigating Substance, Percutaneous Approach, Diagnostic (ICD-10-PCS; principal; 2019-03-02)
DX: A41.9 Sepsis, unspecified organism (principal); M00.9 Pyogenic arthritis, unspecified; R65.20 Severe sepsis without septic shock; Z89.422 Acquired absence of other left toe(s); M1A.9XX1 Chronic gout, unspecified, with tophus (tophi); N18.3 Chronic kidney disease, stage 3 (moderate); I48.2 Chronic atrial fibrillation; Z95.0 Presence of cardiac pacemaker; E11.42 Type 2 diabetes mellitus with diabetic polyneuropathy; E11.22 Type 2 diabetes mellitus with diabetic chronic kidney disease; I12.9 Hypertensive chronic kidney disease with stage 1 through stage 4 chronic kidney disease, or unspecified chronic kidney disease
CPT/HCPCS: 20611; 36415; 73560-RT; 76942; 80048; 80202; 82947; 83605; 85025; 85651; 86141; 87040; 87070; 87075; 87205; 89051; 96365-59; 97110; 97162; 97166; 97530; 99285-25; A9270-GY; J3370; J7030

== ENCOUNTER 2019-03-28 11:43 | Emergency (ER) | payer MEDICARE, BC ==
[~2019-03-28] VITALS: Ht 190.5 cm; Wt 81.7 kg
[~2019-03-28 11:43] MED LIST changes: +ALLO300 PO; +BASAGLAR K100 UNIT/1 SC; +ELIQUIS5 MG PO; +MELO7.5 PO; +TRAM50 PO; +XARELTO1 EACH PO
[2019-03-28] MEDS ORDERED: B-100 COMPLEX100 MG PO (11:57)
[2019-03-28] MEDS ORDERED: HYDR1TAB94 (11:57)
[2019-03-28 12:33] LABS: Bun/Creatinine Ratio 19.7 (12.0-20.0); Calcium, Blood 8.9 mg/dL (8.5-10.1); Creatinine, Blood 1.47 mg/dL (0.60-1.20); Potassium, Blood 4.1 mmol/L (3.5-5.5)
== END 2019-03-28 13:20 | disposition home or self-care (01) ==
LOC: ER 11:43
PROVIDERS: Emergency Medicine
DX: R41.82 Altered mental status, unspecified (principal); E11.9 Type 2 diabetes mellitus without complications; I50.9 Heart failure, unspecified; Z87.891 Personal history of nicotine dependence; Z79.899 Other long term (current) drug therapy; Z79.01 Long term (current) use of anticoagulants; Z79.891 Long term (current) use of opiate analgesic
CPT/HCPCS: 36415; 80048; 93005; 93010; 99284-25

== ENCOUNTER → 2019-04-24 | Outpatient (CLI) | payer MEDICARE, BC ==
[~2019-04-24] MED LIST changes: +B-100 COMPLEX100 MG PO; +Bactrim Ds Tab1 EACH PO; +CIPRO500 MG PO; +HYDR1TAB94; +HYDR1TAB94 PO
== END | disposition home or self-care (01) ==
LOC: LAB 15:04 → LAB SHORT 15:04
DX: M10.061 Idiopathic gout, right knee (principal); M10.072 Idiopathic gout, left ankle and foot; A41.89 Other specified sepsis
CPT/HCPCS: 87070; 87075; 87077; 87147; 87186; 87205

== ENCOUNTER 2019-05-06 13:02 | Emergency (ER) | payer MEDICARE, BC ==
[~2019-05-06] VITALS: Ht 190.5 cm; Wt 79.4 kg
[~2019-05-06 13:02] MED LIST changes: -Bactrim Ds Tab1 EACH PO; -CIPRO500 MG PO; -HYDR1TAB94 PO
[2019-05-06 13:35] LABS: BASOPHILS ABSOLUTE AUTO 0.05 K/mm3 (0.00-0.23); BASOPHILS PERCENT AUTO 0 % (0-2); EOSINOPHILS ABSOLUTE AUTO 0.34 K/mm3 (0.00-0.68); EOSINOPHILS PERCENT AUTO 2 % (0-6); Hematocrit 31.4 % (37.0-53.0); Hemoglobin 9.2 g/dL (13.5-17.5); IMMATURE GRAN ABSOLUTE AUTO 0.15 K/mm3 (0.00-0.10); IMMATURE GRAN PERCENT AUTO 1 % (0-1); LYMPHOCYTES ABSOLUTE AUTO 1.94 K/mm3 (0.84-5.20); LYMPHOCYTES PERCENT AUTO 14 % (21-46); MONOCYTES ABSOLUTE AUTO 0.74 K/mm3 (0.16-1.47); MONOCYTES PERCENT AUTO 5 % (4-13); Mean Corpuscular HGB 23.5 pg (26.0-34.0); Mean Corpuscular HGB Conc 29.3 g/dL (31.5-36.5); Mean Corpuscular Volume 80 fL (80-100); Mean Platelet Volume 9.7 fL (9.1-12.4); NEUTROPHILS ABSOLUTE AUTO 10.99 K/mm3 (1.96-9.15); NEUTROPHILS PERCENT AUTO 77 % (41-73); Platelet Count 583 K/mm3 (150-400); RDW Standard Deviation 56.2 fL (35.1-46.3); Red Blood Cell Count 3.92 M/mm3 (4.30-5.90); White Blood Cell Count 14.21 K/mm3 (4.00-11.30)
[2019-05-06 13:56] LABS: Alanine Aminotransfer (ALT/SGP 36 U/L (12-78); Albumin, Blood 2.7 g/dL (3.4-5.0); Albumin/Globulin Ratio 0.5 (0.8-1.8); Alk Phos 109 U/L (50-136); Anion Gap 8 mmol/L (6-16); Aspartate Aminotrans (AST/SGOT 91 U/L (12-37); Bilirubin, Total 0.4 mg/dL (0.1-1.0); Blood Urea Nitrogen 23 mg/dL (8-24); Bun/Creatinine Ratio 19.3 (12.0-20.0); CO2, Blood 25 mmol/L (21-32); Calcium, Blood 9.4 mg/dL (8.5-10.1); Chloride, Blood 104 mmol/L (98-108); Creatinine, Blood 1.19 mg/dL (0.60-1.20); Globulin, Blood 5.2 g/dL (2.2-4.0); Glomerular Filtration Rate >60 (60-); Glucose, Blood 120 mg/dL (70-99); Potassium, Blood 3.3 mmol/L (3.5-5.5); Sodium, Blood 137 mmol/L (136-145); Total Protein, Blood 7.9 g/dL (6.4-8.2)
[2019-05-06] MEDS ORDERED: Bactrim Ds Tab1 EACH PO (17:24)
[2019-05-06] MEDS ORDERED: CIPRO500 MG PO (17:24)
== END 2019-05-06 18:29 | disposition home or self-care (01) ==
LOC: ER 13:02
PROVIDERS: Emergency Medicine
DX: E11.622 Type 2 diabetes mellitus with other skin ulcer (principal); L97.229 Non-pressure chronic ulcer of left calf with unspecified severity; L97.219 Non-pressure chronic ulcer of right calf with unspecified severity; Z79.899 Other long term (current) drug therapy; Z79.891 Long term (current) use of opiate analgesic; I50.9 Heart failure, unspecified; I48.91 Unspecified atrial fibrillation; Z87.891 Personal history of nicotine dependence
CPT/HCPCS: 36415; 80053; 85025; 99283

== ENCOUNTER 2019-05-16 14:19 | Emergency (ER) | payer MEDICARE, BC ==
[~2019-05-16] VITALS: Ht 190.5 cm; Wt 81.7 kg
[~2019-05-16 14:19] MED LIST changes: +Bactrim Ds Tab1 EACH PO; +CIPRO500 MG PO
== END 2019-05-16 16:01 | disposition home or self-care (01) ==
LOC: ER 14:19
DX: K40.90 Unilateral inguinal hernia, without obstruction or gangrene, not specified as recurrent (principal); Z79.899 Other long term (current) drug therapy; Z79.891 Long term (current) use of opiate analgesic; E11.9 Type 2 diabetes mellitus without complications; I50.9 Heart failure, unspecified; Z87.891 Personal history of nicotine dependence
CPT/HCPCS: 99284

== ENCOUNTER 2019-05-19 00:06 | Inpatient (IN) | payer MEDICARE, BC ==
[~2019-05-19] VITALS: Ht 190.5 cm; Wt 70.5 kg
[2019-05-19 03:47] LABS: Albumin, Blood 2.9 g/dL (3.4-5.0); Albumin/Globulin Ratio 0.6 (0.8-1.8); Bilirubin, Total 0.3 mg/dL (0.1-1.0); Bun/Creatinine Ratio 17.4 (12.0-20.0); Calcium, Blood 9.3 mg/dL (8.5-10.1); Creatinine, Blood 1.9 mg/dL (0.60-1.20); Globulin, Blood 4.8 g/dL (2.2-4.0); Potassium, Blood 4.1 mmol/L (3.5-5.5); Total Protein, Blood 7.7 g/dL (6.4-8.2)
[2019-05-19 04:14] LABS: BASOPHILS ABSOLUTE AUTO 0.05 K/mm3 (0.00-0.23); BASOPHILS PERCENT AUTO 1 % (0-2); EOSINOPHILS ABSOLUTE AUTO 0.16 K/mm3 (0.00-0.68); EOSINOPHILS PERCENT AUTO 2 % (0-6); Hemoglobin 8.9 g/dL (13.5-17.5); IMMATURE GRAN ABSOLUTE AUTO 0.03 K/mm3 (0.00-0.10); IMMATURE GRAN PERCENT AUTO 0 % (0-1); LYMPHOCYTES ABSOLUTE AUTO 1.67 K/mm3 (0.84-5.20); LYMPHOCYTES PERCENT AUTO 16 % (21-46); MONOCYTES ABSOLUTE AUTO 0.78 K/mm3 (0.16-1.47); MONOCYTES PERCENT AUTO 7 % (4-13); Mean Corpuscular HGB 23.7 pg (26.0-34.0); Mean Corpuscular HGB Conc 29.7 g/dL (31.5-36.5); Mean Corpuscular Volume 80 fL (80-100); Mean Platelet Volume 9.4 fL (9.1-12.4); NEUTROPHILS ABSOLUTE AUTO 7.99 K/mm3 (1.96-9.15); NEUTROPHILS PERCENT AUTO 75 % (41-73); Platelet Count 517 K/mm3 (150-400); RDW Coefficient Variation 19.1 % (11.7-14.2); RDW Standard Deviation 54.8 fL (35.1-46.3); Red Blood Cell Count 3.75 M/mm3 (4.30-5.90); White Blood Cell Count 10.68 K/mm3 (4.00-11.30)
[2019-05-19 04:23] LABS: Appearance, Urine Hazy (Clear); Color, Urine Yellow (P-Yellow); Leukocyte Esterase, Urine Neg (Neg)
[2019-05-19 04:24] LABS: Bilirubin, Urine Neg (Neg); Blood, Urine 5+ (Neg); Glucose Qualitative, Urine Neg (Neg); Ketones, Urine Neg (Neg); Nitrite, Urine Neg (Neg); Protein, Urine 2+ (Neg); Urobilinogen, Urine NORM (Normal)
[2019-05-19 04:25] LABS: Bacteria Rare /hpf; Red Blood Cells, Urine 50-100 /hpf (0-2); Squamous Epithelial Cells Not Seen /hpf (Few); White Blood Cells, Urine Not Seen /hpf (0-5)
--- NOTE | 2019-05-19 18:44 | NUR ---
SHIFT SUMMARY PT A&OX4 WITH VSS T/O SHIFT. PAIN WELL CONTROLLED PER EMAR. HERNIA REDUCED IN ED; NO FINDINGS OF PROTRUSION. BLE ULCER DRESSINGS CHANGED WITH YELLOW DRAINAGE NOTED. JORGENSEN IN PLACE AND DRAINING CLEAR YELLOW URINE. WHEELCHAIR BOUND AT BASELINE WITH ABILITY TO STAND AND PIVOT; BUT PT STATES CURRENTLY UNABLE TO.
--- NOTE | 2019-05-20 04:30 | NUR ---
SHIFT SUMMARY HAS RESTED WELL, DENIES PAIN. HAS BEEN NPO PAST [place] FOR SX THIS AM. DENIES FURTHER NEEDS AT THIS TIME. SAFETY MEASURES IN PLACE. WILL GIVE HAND OFF TO ONCOMING SHIFT USING SBAR.
[2019-05-20 04:52] LABS: BASOPHILS ABSOLUTE AUTO 0.03 K/mm3 (0.00-0.23); BASOPHILS PERCENT AUTO 0 % (0-2); EOSINOPHILS ABSOLUTE AUTO 0.44 K/mm3 (0.00-0.68); EOSINOPHILS PERCENT AUTO 6 % (0-6); Hematocrit 27.6 % (37.0-53.0); Hemoglobin 8.2 g/dL (13.5-17.5); IMMATURE GRAN ABSOLUTE AUTO 0.04 K/mm3 (0.00-0.10); IMMATURE GRAN PERCENT AUTO 1 % (0-1); LYMPHOCYTES ABSOLUTE AUTO 1.97 K/mm3 (0.84-5.20); LYMPHOCYTES PERCENT AUTO 25 % (21-46); MONOCYTES ABSOLUTE AUTO 0.72 K/mm3 (0.16-1.47); MONOCYTES PERCENT AUTO 9 % (4-13); Mean Corpuscular HGB 23.5 pg (26.0-34.0); Mean Corpuscular HGB Conc 29.7 g/dL (31.5-36.5); Mean Corpuscular Volume 79 fL (80-100); Mean Platelet Volume 9.3 fL (9.1-12.4); NEUTROPHILS ABSOLUTE AUTO 4.74 K/mm3 (1.96-9.15); NEUTROPHILS PERCENT AUTO 60 % (41-73); Platelet Count 420 K/mm3 (150-400); RDW Standard Deviation 54.4 fL (35.1-46.3); Red Blood Cell Count 3.49 M/mm3 (4.30-5.90); White Blood Cell Count 7.94 K/mm3 (4.00-11.30)
[2019-05-20 05:16] LABS: Bun/Creatinine Ratio 18.5 (12.0-20.0); Calcium, Blood 8.9 mg/dL (8.5-10.1); Creatinine, Blood 1.35 mg/dL (0.60-1.20)
--- NOTE | 2019-05-20 11:53 | NUR ---
PT TO SURGERY AT THIS TIME.
--- NOTE | 2019-05-20 12:30 | NUR ---
"DAY SURGERY RN | TO OR NO ISSUES. BOTH DOCTORS AND CIRCULATING RN HAVE SEEN PATIENT. SCDS NOT PLACED D/T BILATERAL WOUNDS ON LOWER LEGS. REPORT TO YVETTE STEVE."
--- NOTE | 2019-05-20 15:44 | NUR ---
PT TO ROOM FROM SURGERY. REPORTS NO NAUSEA, MINIMAL PAIN. PT A/O X4. PT HAS THREE INCISION SITES ON ABDOMEN OPEN TO AIR. NO DRAINAGE NOTED. PT TOLERATING SIPS OF WATER AND ICE CHIPS AT THIS TIME.
--- NOTE | 2019-05-20 17:35 | NUR ---
SHIFT SUMMARY PT HAD SURGERY TODAY AND HAS BEEN DOING WELL SINCE. REPORTED MINIMAL PAIN, MANAGED WITH PO PAIN MED. TOLERATING FLUIDS. JORGENSEN IN PLACE, DRAINING. MEPILEX PLACED ON BILAT LOWER LEG WOUNDS AND RED AREA ON BUTTOCKS TODAY BY RN. PT HAS BEEN A/OX4. ASSISTED WITH ADL'S PRN.
--- NOTE | 2019-05-21 04:08 | NUR ---
SHIFT SUMMARY: SEBAS UNDERWENT ROBOTIC REPAIR OF HIS INGINAL HERNIA TODAY. HE IS A&O X 4. HE REPORTS 4-5/10 PAIN ON HIS ABDOMEN (ACUTE SURGICAL PAIN) AND 4/10 PAIN IN HIS SHOULDER (CHRONIC GOUT PAIN). HE STATES THAT THE NORCO REDUCES THE PAIN TO A TOLERABLE LEVEL. HIS INCISIONS ARE CLOSED WITH DERMABOND AND ARE CLEAN AND DRY. HE IS TOLERATING THE CLEAR LIQUID DIET WELL. HE STATES THAT HE WAS GETTING UP AND WALKING WITH PT AT HOME BEFORE THIS HAPPENED, BUT THAT HE HASN'T BEEN ABLE TO WALK MUCH THIS HOSPITALIZATION. BILATERAL PAS IN PLACE. VSS. HE HAS THE HISTORY OF DM, CHF, A-FIB, GOUT, PACEMAKER, HTN, AND ACUTE RENAL FAILURE. HE IS LYING IN BED WITH HIS CALL LIGHT IN REACH.
[2019-05-21 06:44] LABS: Hematocrit 28.1 % (37.0-53.0); Hemoglobin 8.2 g/dL (13.5-17.5)
[2019-05-21 07:04] LABS: Anion Gap 9 mmol/L (6-16); Blood Urea Nitrogen 22 mg/dL (8-24); Bun/Creatinine Ratio 20.6 (12.0-20.0); CO2, Blood 20 mmol/L (21-32); Calcium, Blood 8.9 mg/dL (8.5-10.1); Chloride, Blood 106 mmol/L (98-108); Creatinine, Blood 1.07 mg/dL (0.60-1.20); Glomerular Filtration Rate >60 (60-); Glucose, Blood 98 mg/dL (70-99); Potassium, Blood 4.9 mmol/L (3.5-5.5); Sodium, Blood 135 mmol/L (136-145)
[2019-05-21] MEDS ORDERED: HYDR1TAB94 PO (08:26)
--- NOTE | 2019-05-21 09:42 | NUR ---
05/21/19 0942 Karlee Kasper PATIENT ARRIVED WITH JORGENSEN IN PLACE, LEFT WITH JORGENSEN IN PLACE.
[2019-05-21] MEDS ORDERED: COLCHICINE0.6 MG PO (13:02)
--- NOTE | 2019-05-21 14:57 | NUR ---
DISCHARGE NOTE D/C INSTRUCTIONS GIVEN TO PT BY RN. HARD SCRIPT AND PRINTED INSTRUCTIONS SENT HOME WITH PT. REPORTS UNDERSTANDING AND NO FURTHER QUESTIONS. PERSONAL BELONGINGS SENT WITH PT. PT TRANSPORTED BY [employer] IN WHEELCHAIR. PT VOIDING, TOLERATING FOOD AND FLUIDS. IV DC'D, NO OTHER IV'S IN PLACE.
== END 2019-05-21 14:55 | disposition home or self-care (01) | DRG 351 ==
LOC: ER 00:06 → ERHOLD 04:42 → SURS 04:42
PROVIDERS: Emergency Medicine; Internal Medicine; Surgery; ADMIT Hospitalist
PROC: 8E0W4CZ Robotic Assisted Procedure of Trunk Region, Percutaneous Endoscopic Approach (ICD-10-PCS; 2019-05-20)
PROC: 0YU54JZ Supplement Right Inguinal Region with Synthetic Substitute, Percutaneous Endoscopic Approach (ICD-10-PCS; principal; 2019-05-20 12:45)
DX: K40.31 Unilateral inguinal hernia, with obstruction, without gangrene, recurrent (principal); I13.0 Hypertensive heart and chronic kidney disease with heart failure and stage 1 through stage 4 chronic kidney disease, or unspecified chronic kidney disease; I50.32 Chronic diastolic (congestive) heart failure; I48.21 Permanent atrial fibrillation; N17.9 Acute kidney failure, unspecified; D63.1 Anemia in chronic kidney disease; E11.65 Type 2 diabetes mellitus with hyperglycemia; L89.892 Pressure ulcer of other site, stage 2; L89.321 Pressure ulcer of left buttock, stage 1; L89.311 Pressure ulcer of right buttock, stage 1; E11.22 Type 2 diabetes mellitus with diabetic chronic kidney disease; N18.3 Chronic kidney disease, stage 3 (moderate); Z95.0 Presence of cardiac pacemaker; M1A.9XX1 Chronic gout, unspecified, with tophus (tophi); Z79.01 Long term (current) use of anticoagulants; Z87.891 Personal history of nicotine dependence; E86.9 Volume depletion, unspecified
CPT/HCPCS: 36415; 51702; 74176; 80048; 80053; 81001; 83605; 85014; 85018; 85025; 87070; 87081; 87086; 96374-59; 96375-59; 97162; 97166; 97530; 99285-25; A9270-GY; C1781; J0690; J1100; J2250; J2370; J2405; J2704; J3010; J3360; J7030; J7120

== ENCOUNTER 2019-07-10 14:34 | Emergency (ER) | payer MEDICARE, BC ==
[~2019-07-10] VITALS: Ht 190.5 cm; Wt 79.4 kg
[~2019-07-10 14:34] MED LIST changes: +HYDR1TAB94 PO
[2019-07-10 15:18] LABS: BASOPHILS ABSOLUTE AUTO 0.03 K/mm3 (0.00-0.23); BASOPHILS PERCENT AUTO 0 % (0-2); EOSINOPHILS ABSOLUTE AUTO 0.31 K/mm3 (0.00-0.68); EOSINOPHILS PERCENT AUTO 4 % (0-6); Hemoglobin 11.5 g/dL (13.5-17.5); IMMATURE GRAN ABSOLUTE AUTO 0.02 K/mm3 (0.00-0.10); IMMATURE GRAN PERCENT AUTO 0 % (0-1); LYMPHOCYTES PERCENT AUTO 29 % (21-46); MONOCYTES ABSOLUTE AUTO 0.62 K/mm3 (0.16-1.47); MONOCYTES PERCENT AUTO 8 % (4-13); Mean Corpuscular HGB 22.7 pg (26.0-34.0); Mean Corpuscular HGB Conc 28.8 g/dL (31.5-36.5); Mean Corpuscular Volume 79 fL (80-100); Mean Platelet Volume 10.7 fL (9.1-12.4); NEUTROPHILS ABSOLUTE AUTO 4.49 K/mm3 (1.96-9.15); NEUTROPHILS PERCENT AUTO 59 % (41-73); Platelet Count 275 K/mm3 (150-400); RDW Standard Deviation 47.6 fL (35.1-46.3); Red Blood Cell Count 5.06 M/mm3 (4.30-5.90); White Blood Cell Count 7.67 K/mm3 (4.00-11.30)
[2019-07-10 15:38] LABS: Albumin, Blood 3.7 g/dL (3.4-5.0); Albumin/Globulin Ratio 0.9 (0.8-1.8); Bilirubin, Total 0.5 mg/dL (0.1-1.0); Bun/Creatinine Ratio 15.3 (12.0-20.0); Calcium, Blood 9.3 mg/dL (8.5-10.1); Creatinine, Blood 1.63 mg/dL (0.60-1.20); Globulin, Blood 4.3 g/dL (2.2-4.0); Potassium, Blood 3.3 mmol/L (3.5-5.5)
[2019-07-10] MEDS ORDERED: Bactrim Ds Tab1 EACH PO (17:00)
[2019-07-10] MEDS ORDERED: CEPH500 PO (17:00)
== END 2019-07-10 17:31 | disposition home or self-care (01) ==
LOC: ER 14:34
PROVIDERS: Physician Assistant
DX: L03.115 Cellulitis of right lower limb (principal); L97.519 Non-pressure chronic ulcer of other part of right foot with unspecified severity; I50.9 Heart failure, unspecified; E11.9 Type 2 diabetes mellitus without complications; Z79.899 Other long term (current) drug therapy
CPT/HCPCS: 36415; 80053; 85025; 85651; 99283; A9270-GY

== ENCOUNTER 2019-07-27 07:48 | Day surgery (SDC) | payer MEDICARE, BC ==
[~2019-07-27 07:48] MED LIST changes: +CEPH500 PO
== END 2019-07-27 22:56 | disposition home or self-care (01) ==
LOC: WOUND 07:48
DX: L89.892 Pressure ulcer of other site, stage 2 (principal); E11.9 Type 2 diabetes mellitus without complications; M1A.9XX1 Chronic gout, unspecified, with tophus (tophi); I11.0 Hypertensive heart disease with heart failure; I50.9 Heart failure, unspecified; E78.5 Hyperlipidemia, unspecified; I25.10 Atherosclerotic heart disease of native coronary artery without angina pectoris; J45.909 Unspecified asthma, uncomplicated; Z87.891 Personal history of nicotine dependence; Z79.899 Other long term (current) drug therapy; Z79.01 Long term (current) use of anticoagulants
CPT/HCPCS: G0463

== ENCOUNTER 2019-11-27 00:46 | Day surgery (SDC) | payer MEDICARE, BC | END 2019-11-27 23:14 | disposition home or self-care (01) | LOC: WOUND 00:46 | DX: L89.892 Pressure ulcer of other site, stage 2 (principal) | CPT/HCPCS: G0463 ==

== ENCOUNTER 2019-12-04 00:21 | Day surgery (SDC) | payer MEDICARE, BC | END 2019-12-04 22:42 | disposition home or self-care (01) | LOC: WOUND 00:21 | DX: L89.892 Pressure ulcer of other site, stage 2 (principal); I48.91 Unspecified atrial fibrillation; I11.0 Hypertensive heart disease with heart failure; I50.9 Heart failure, unspecified; E78.5 Hyperlipidemia, unspecified; J45.909 Unspecified asthma, uncomplicated; M10.9 Gout, unspecified; Z79.01 Long term (current) use of anticoagulants; Z79.899 Other long term (current) drug therapy ==

== ENCOUNTER 2019-12-10 00:21 | Day surgery (SDC) | payer MEDICARE, BC | END 2019-12-10 23:07 | disposition home or self-care (01) | LOC: WOUND 00:21 | DX: L89.892 Pressure ulcer of other site, stage 2 (principal); I11.0 Hypertensive heart disease with heart failure; I50.9 Heart failure, unspecified; I25.10 Atherosclerotic heart disease of native coronary artery without angina pectoris; E11.621 Type 2 diabetes mellitus with foot ulcer; Z79.899 Other long term (current) drug therapy; Z79.01 Long term (current) use of anticoagulants | CPT/HCPCS: G0463 ==

== ENCOUNTER → 2019-12-23 | Outpatient (CLI) | payer MEDICARE, BC ==
[2019-12-23 19:50] LABS: BASOPHILS ABSOLUTE AUTO 0.05 K/mm3 (0.00-0.23); BASOPHILS PERCENT AUTO 1 % (0-2); EOSINOPHILS ABSOLUTE AUTO 0.16 K/mm3 (0.00-0.68); EOSINOPHILS PERCENT AUTO 2 % (0-6); Hematocrit 39.5 % (37.0-53.0); Hemoglobin 11.7 g/dL (13.5-17.5); IMMATURE GRAN ABSOLUTE AUTO 0.03 K/mm3 (0.00-0.10); IMMATURE GRAN PERCENT AUTO 0 % (0-1); LYMPHOCYTES ABSOLUTE AUTO 1.55 K/mm3 (0.84-5.20); LYMPHOCYTES PERCENT AUTO 22 % (21-46); MONOCYTES ABSOLUTE AUTO 0.49 K/mm3 (0.16-1.47); MONOCYTES PERCENT AUTO 7 % (4-13); Mean Corpuscular HGB 23.9 pg (26.0-34.0); Mean Corpuscular HGB Conc 29.6 g/dL (31.5-36.5); Mean Corpuscular Volume 81 fL (80-100); Mean Platelet Volume 10.3 fL (9.1-12.4); NEUTROPHILS ABSOLUTE AUTO 4.85 K/mm3 (1.96-9.15); NEUTROPHILS PERCENT AUTO 68 % (41-73); Platelet Count 322 K/mm3 (150-400); RDW Coefficient Variation 18.6 % (11.7-14.2); RDW Standard Deviation 53.6 fL (35.1-46.3); Red Blood Cell Count 4.89 M/mm3 (4.30-5.90); White Blood Cell Count 7.13 K/mm3 (4.00-11.30)
[2019-12-23 20:26] LABS: Albumin, Blood 3.2 g/dL (3.4-5.0); Albumin/Globulin Ratio 0.7 (0.8-1.8); Bilirubin, Total 0.4 mg/dL (0.1-1.0); Bun/Creatinine Ratio 16.1 (12.0-20.0); Calcium, Blood 8.9 mg/dL (8.5-10.1); Creatinine, Blood 1.37 mg/dL (0.60-1.20); Globulin, Blood 4.8 g/dL (2.2-4.0); Potassium, Blood 3.5 mmol/L (3.5-5.5); Uric Acid, Blood 3.7 mg/dL (3.5-7.2)
== END | disposition home or self-care (01) ==
LOC: LAB SHORT 18:13 → LAB 18:13
PROVIDERS: Internal Medicine Rheumatology
DX: M1A.9XX1 Chronic gout, unspecified, with tophus (tophi) (principal)
CPT/HCPCS: 80053; 84550; 85025

== ENCOUNTER 2019-12-25 00:33 | Day surgery (SDC) | payer MEDICARE, BC | END 2019-12-25 23:11 | disposition home or self-care (01) | LOC: WOUND 00:33 | DX: L89.892 Pressure ulcer of other site, stage 2 (principal); I11.0 Hypertensive heart disease with heart failure; I50.9 Heart failure, unspecified; E78.5 Hyperlipidemia, unspecified; Z79.899 Other long term (current) drug therapy; Z79.01 Long term (current) use of anticoagulants ==

== ENCOUNTER 2020-01-08 00:45 | Day surgery (SDC) | payer MEDICARE, BC | END 2020-01-08 23:26 | disposition home or self-care (01) | LOC: WOUND 00:45 | DX: L89.892 Pressure ulcer of other site, stage 2 (principal); I11.0 Hypertensive heart disease with heart failure; I50.9 Heart failure, unspecified; E78.5 Hyperlipidemia, unspecified; J45.909 Unspecified asthma, uncomplicated; Z79.899 Other long term (current) drug therapy; Z79.01 Long term (current) use of anticoagulants ==

== ENCOUNTER 2020-01-22 01:33 | Day surgery (SDC) | payer MEDICARE, BC | END 2020-01-22 22:47 | disposition home or self-care (01) | LOC: WOUND 01:33 | DX: L89.892 Pressure ulcer of other site, stage 2 (principal); I11.0 Hypertensive heart disease with heart failure; I50.9 Heart failure, unspecified; E78.5 Hyperlipidemia, unspecified; J45.909 Unspecified asthma, uncomplicated; Z79.899 Other long term (current) drug therapy; Z79.01 Long term (current) use of anticoagulants ==

== ENCOUNTER → 2020-03-31 | Outpatient (CLI) | payer MEDICARE, BC | END | disposition home or self-care (01) | LOC: LAB SHORT 18:07 → LAB 18:07 | DX: M1A.9XX1 Chronic gout, unspecified, with tophus (tophi) (principal) | CPT/HCPCS: 84550 ==

== ENCOUNTER 2022-11-14 12:11 | Inpatient (IN) | payer MEDICARE, BC ==
[~2022-11-14] VITALS: Ht 190.5 cm; Wt 79.7 kg
[2022-11-14 13:10] LABS: BASOPHILS ABSOLUTE AUTO 0.05 K/mm3 (0.00-0.23); BASOPHILS PERCENT AUTO 1 % (0-2); EOSINOPHILS ABSOLUTE AUTO 0.22 K/mm3 (0.00-0.68); EOSINOPHILS PERCENT AUTO 3 % (0-6); Hematocrit 42.2 % (37.0-53.0); Hemoglobin 14.1 g/dL (13.5-17.5); IMMATURE GRAN ABSOLUTE AUTO 0.05 K/mm3 (0.00-0.10); IMMATURE GRAN PERCENT AUTO 1 % (0-1); LYMPHOCYTES PERCENT AUTO 11 % (21-46); MONOCYTES ABSOLUTE AUTO 0.99 K/mm3 (0.16-1.47); MONOCYTES PERCENT AUTO 11 % (4-13); Mean Corpuscular HGB 32.7 pg (26.0-34.0); Mean Corpuscular HGB Conc 33.4 g/dL (31.5-36.5); Mean Corpuscular Volume 98 fL (80-100); Mean Platelet Volume 10.9 fL (9.1-12.4); NEUTROPHILS ABSOLUTE AUTO 6.62 K/mm3 (1.96-9.15); NEUTROPHILS PERCENT AUTO 74 % (41-73); Platelet Count 170 K/mm3 (150-400); RDW Coefficient Variation 14.8 % (11.7-14.2); RDW Standard Deviation 53.7 fL (35.1-46.3); Red Blood Cell Count 4.31 M/mm3 (4.30-5.90); White Blood Cell Count 8.93 K/mm3 (4.00-11.30)
[2022-11-14 13:28] LABS: International Normalized Ratio 1.58; Prothrombin Time Results 16.2 Sec (9.7-11.5)
[2022-11-14 13:40] LABS: Albumin, Blood 3.3 g/dL (3.4-5.0); Albumin/Globulin Ratio 0.7 (0.8-1.8); Bilirubin, Total 0.8 mg/dL (0.1-1.0); Bun/Creatinine Ratio 30.4 (12.0-20.0); Calcium, Blood 9.4 mg/dL (8.5-10.1); Creatinine, Blood 3.39 mg/dL (0.60-1.20); Globulin, Blood 4.9 g/dL (2.2-4.0); Potassium, Blood 4.9 mmol/L (3.5-5.5); Total Protein, Blood 8.2 g/dL (6.4-8.2)
[2022-11-14] MEDS ORDERED: ALLO300 PO (15:07)
[2022-11-14] MEDS ORDERED: AMIODARONE HCL200 M1 PO (15:08)
[2022-11-14] MEDS ORDERED: AMLO10 PO (15:09)
[2022-11-14] MEDS ORDERED: BUME2 PO (15:10)
[2022-11-14] MEDS ORDERED: Digoxin PO (15:11)
[2022-11-14] MEDS ORDERED: Zestril30 MG PO (15:12)
[2022-11-14] MEDS ORDERED: METO50ER PO (15:13)
[2022-11-14] MEDS ORDERED: B-1100 M1 PO (15:14)
[2022-11-14] MEDS ORDERED: WARF2.5 PO (16:38)
[2022-11-14] MEDS ORDERED: WARF5 PO (16:38)
[2022-11-14 17:08] VITALS: BP 114/63
--- NOTE | 2022-11-14 18:10 | NUR ---
SPOKE TO [employer] REP- HE WILL BE IN FIRST THING IN THE MORNING TO INTERROGATE THE PT PACEMAKER.
[2022-11-14 20:09] VITALS: BP 120/59
[2022-11-14 20:48] LABS: Digoxin (Lanoxin) 4.92 ug/mL (0.80-2.00)
--- NOTE | 2022-11-14 21:22 | NUR ---
CRITICAL DIGOXIN: DIGOXIN LEVEL CRITICAL AT 4.92. CALL PLACED TO HOSPITALIST, PT HR AND PREV EKG REVIEWED. HOSPITALIST TO INPUT NEW ORDERS.
[2022-11-15 02:47] VITALS: BP 115/53
[2022-11-15 04:26] LABS: BASOPHILS ABSOLUTE AUTO 0.05 K/mm3 (0.00-0.23); BASOPHILS PERCENT AUTO 1 % (0-2); EOSINOPHILS ABSOLUTE AUTO 0.33 K/mm3 (0.00-0.68); EOSINOPHILS PERCENT AUTO 5 % (0-6); Hematocrit 38.8 % (37.0-53.0); Hemoglobin 13.2 g/dL (13.5-17.5); IMMATURE GRAN ABSOLUTE AUTO 0.03 K/mm3 (0.00-0.10); IMMATURE GRAN PERCENT AUTO 0 % (0-1); LYMPHOCYTES PERCENT AUTO 16 % (21-46); MONOCYTES ABSOLUTE AUTO 0.81 K/mm3 (0.16-1.47); MONOCYTES PERCENT AUTO 12 % (4-13); Mean Corpuscular HGB 33.3 pg (26.0-34.0); Mean Corpuscular Volume 98 fL (80-100); Mean Platelet Volume 10.6 fL (9.1-12.4); NEUTROPHILS ABSOLUTE AUTO 4.64 K/mm3 (1.96-9.15); NEUTROPHILS PERCENT AUTO 67 % (41-73); Platelet Count 147 K/mm3 (150-400); RDW Coefficient Variation 14.7 % (11.7-14.2); RDW Standard Deviation 53.1 fL (35.1-46.3); Red Blood Cell Count 3.96 M/mm3 (4.30-5.90); White Blood Cell Count 6.96 K/mm3 (4.00-11.30)
[2022-11-15 04:44] LABS: Alanine Aminotransfer (ALT/SGP 50 U/L (12-78); Albumin, Blood 2.8 g/dL (3.4-5.0); Albumin/Globulin Ratio 0.7 (0.8-1.8); Alk Phos 88 U/L (50-136); Anion Gap 2 mmol/L (6-16); Aspartate Aminotrans (AST/SGOT 36 U/L (12-37); Bilirubin, Total 0.6 mg/dL (0.1-1.0); Blood Urea Nitrogen 100 mg/dL (8-24); Bun/Creatinine Ratio 31.8 (12.0-20.0); CHOL/HDL RATIO 3.4; CO2, Blood 29 mmol/L (21-32); Chloride, Blood 105 mmol/L (98-108); Cholesterol 141 mg/dL (50-200); Creatinine, Blood 3.14 mg/dL (0.60-1.20); Globulin, Blood 4.1 g/dL (2.2-4.0); Glomerular Filtration Rate 21 (60-); Glucose, Blood 89 mg/dL (70-99); HDL Cholesterol 42 mg/dL (>39); Low Density Lipoprotein Chol 83 mg/dL (0-110); Potassium, Blood 4.8 mmol/L (3.5-5.5); Sodium, Blood 136 mmol/L (136-145); Total Protein, Blood 6.9 g/dL (6.4-8.2); Triglycerides 82 mg/dL (30-160); Very Low Density Lipoprot Chol 16 mg/dL (6-32)
[2022-11-15 04:48] LABS: International Normalized Ratio 1.56
[2022-11-15 08:16] VITALS: BP 116/57
--- NOTE | 2022-11-15 08:35 | NUR ---
PT HR TRENDED 40'S DURING NIGHT; PT ASYMPTOMATIC, OTHER VSS. PACER INTERROGATION COMPLETED THIS AM, TECH TO DISCUSS W/DR GUMARO R/T POTENTIAL NEED TO INC RATE. HEPARIN GTT CONT PER ORDERS. BLE ELEVATED IN BED, SMALL AMT SS CARTER NOTED THIS AM, PT DENIED PAIN. DISCUSSED W/DAY RN POTENTIAL NEED FOR WOUND CARE CONS. PT A/O, IS PLEASANT AND COOP W/CARE. BEDSIDE REPORT GIVEN TO KALINA Kendrick RN.
--- NOTE | 2022-11-15 14:45 | NUR ---
WOUND CARE PT WITH UNSTAGABLE PI TO R PLANTAR FOOT, BLE WITH DRIED CRUST, AND PINCER TOENAILS. PT EDUCATED ON THE IMPORTANCE OF FOLLOW UP CARE AFTER DC WITH PODIATRY. CALLUS OVER PLANTAR WOUND WILL NEED DEBRIDEMENT. TOENAILS WILL NEED TRIMMED BEFORE THEY CAUSE ADDITIONAL WOUNDS. RECOMMEND PT CLEANSE BLE DAILY USE AND EMOLSION LOTION TO REMOVED CRUST AND PROTECT SKIN FROM DRYING AND CRACKING REDUCING THE RISK OF INFECTION.
[2022-11-15 16:00] VITALS: BP 114/69
--- NOTE | 2022-11-15 18:34 | NUR ---
SHIFT SUMMARY: NO ACUTE EVENTS. PACEMAKER/AICD INTERROGATED THIS MORNING AND PROGRAMMED RATE CHANGED FROM 40 TO 60 BPM, V PACED ON TELEMETRY. ON HEPARIN GTT AT 15 UNITS/KG/HR OR 24 ML/HR (WT 80 KGS), BRIDGING TO COUMADIN. INPATIENT WOUND CONSULT PLACED FOR CHRONIC WOUND ON BLE. DENIED PAIN. USING URINAL INDEPENDENTLY, ASKS FOR BEDPAN PRN. SPEECH THERAPY EVALUATED PT THIS MORNING, PLACED ON PUREED DIET; PT/OT ALSO WORKED WITH PT.
[2022-11-15 21:15] VITALS: BP 125/62
--- NOTE | 2022-11-16 03:27 | NUR ---
. VERY PLEASANT, A&OX4 GENTLEMAN. CALLS APPROPRIATELY FOR ASSISTANCE. MEDICATED ONCE WITH 10MG NORCO FOR BILATERAL FLANK PAIN WHICH RESOLVED PATIENT IS ASKING WHETHER OR NOT HIS KIDNEY'S ARE SHOWING SIGNS OF IMPROVEMENT. UNFORTUNATELY, NUMBERS HAD ONLY MINIMALLY IMPROVED WILL CONTINUE CLOSE MONITORING
[2022-11-16 04:33] VITALS: BP 109/58
[2022-11-16 04:41] LABS: BASOPHILS ABSOLUTE AUTO 0.03 K/mm3 (0.00-0.23); BASOPHILS PERCENT AUTO 1 % (0-2); EOSINOPHILS ABSOLUTE AUTO 0.41 K/mm3 (0.00-0.68); EOSINOPHILS PERCENT AUTO 7 % (0-6); Hematocrit 39.9 % (37.0-53.0); Hemoglobin 13.4 g/dL (13.5-17.5); IMMATURE GRAN ABSOLUTE AUTO 0.02 K/mm3 (0.00-0.10); IMMATURE GRAN PERCENT AUTO 0 % (0-1); LYMPHOCYTES ABSOLUTE AUTO 1.45 K/mm3 (0.84-5.20); LYMPHOCYTES PERCENT AUTO 24 % (21-46); MONOCYTES ABSOLUTE AUTO 0.66 K/mm3 (0.16-1.47); MONOCYTES PERCENT AUTO 11 % (4-13); Mean Corpuscular HGB 32.6 pg (26.0-34.0); Mean Corpuscular HGB Conc 33.6 g/dL (31.5-36.5); Mean Corpuscular Volume 97 fL (80-100); Mean Platelet Volume 10.8 fL (9.1-12.4); NEUTROPHILS ABSOLUTE AUTO 3.56 K/mm3 (1.96-9.15); NEUTROPHILS PERCENT AUTO 58 % (41-73); Platelet Count 152 K/mm3 (150-400); RDW Coefficient Variation 14.7 % (11.7-14.2); Red Blood Cell Count 4.11 M/mm3 (4.30-5.90); White Blood Cell Count 6.13 K/mm3 (4.00-11.30)
[2022-11-16 05:00] LABS: International Normalized Ratio 1.58; Prothrombin Time Results 16.2 Sec (9.7-11.5)
[2022-11-16 05:37] LABS: Anion Gap 3 mmol/L (6-16); Blood Urea Nitrogen 78 mg/dL (8-24); Bun/Creatinine Ratio 32.8 (12.0-20.0); CO2, Blood 24 mmol/L (21-32); Calcium, Blood 8.7 mg/dL (8.5-10.1); Chloride, Blood 107 mmol/L (98-108); Creatinine, Blood 2.38 mg/dL (0.60-1.20); Glomerular Filtration Rate 29 (60-); Glucose, Blood 85 mg/dL (70-99); Potassium, Blood 4.7 mmol/L (3.5-5.5); Sodium, Blood 134 mmol/L (136-145)
[2022-11-16 05:39] LABS: Digoxin (Lanoxin) 4.19 ug/mL (0.80-2.00)
[2022-11-16 07:29] VITALS: BP 123/66
--- NOTE | 2022-11-16 17:20 | NUR ---
SHIFT SUMMARY PTN ON CONTINUOUS HEPARIN DRIP. DIETARY SAW PTN AND CHANGED TO REGULAR CARDIAC DIET. DR DOWELL ADDED NS @ 125 ML/HR 1000 ML THIS SHIFT. PTN VENTRICULAR PACED, HR 60 THIS SHIFT. PTN REPORTS FEELING BETTER. BLE WITH SCALING, DRY SKIN. WOUND CARE CONSULT DONE YESTERDAY PER PTN REPORT, TO USE LOTION. L GREAT TOE SURGICALLY REMOVED. EXTENSIVE POOR SKIN INTEGRITY TO LOWER EXTREMITIES. CONTINUE TO MONITOR.
[2022-11-16 20:15] VITALS: BP 136/76
[2022-11-17 02:17] VITALS: BP 117/60
[2022-11-17 03:13] LABS: BASOPHILS ABSOLUTE AUTO 0.03 K/mm3 (0.00-0.23); BASOPHILS PERCENT AUTO 1 % (0-2); EOSINOPHILS ABSOLUTE AUTO 0.34 K/mm3 (0.00-0.68); EOSINOPHILS PERCENT AUTO 6 % (0-6); Hematocrit 37.2 % (37.0-53.0); Hemoglobin 12.4 g/dL (13.5-17.5); IMMATURE GRAN ABSOLUTE AUTO 0.02 K/mm3 (0.00-0.10); IMMATURE GRAN PERCENT AUTO 0 % (0-1); LYMPHOCYTES ABSOLUTE AUTO 1.08 K/mm3 (0.84-5.20); LYMPHOCYTES PERCENT AUTO 18 % (21-46); MONOCYTES ABSOLUTE AUTO 0.66 K/mm3 (0.16-1.47); MONOCYTES PERCENT AUTO 11 % (4-13); Mean Corpuscular HGB 32.6 pg (26.0-34.0); Mean Corpuscular HGB Conc 33.3 g/dL (31.5-36.5); Mean Corpuscular Volume 98 fL (80-100); Mean Platelet Volume 10.6 fL (9.1-12.4); NEUTROPHILS PERCENT AUTO 64 % (41-73); Platelet Count 149 K/mm3 (150-400); RDW Coefficient Variation 14.7 % (11.7-14.2); RDW Standard Deviation 53.5 fL (35.1-46.3); White Blood Cell Count 5.93 K/mm3 (4.00-11.30)
[2022-11-17 03:38] LABS: International Normalized Ratio 1.98
[2022-11-17 04:25] LABS: Anion Gap 0 mmol/L (6-16); Blood Urea Nitrogen 52 mg/dL (8-24); Bun/Creatinine Ratio 28.4 (12.0-20.0); CO2, Blood 25 mmol/L (21-32); Calcium, Blood 8.7 mg/dL (8.5-10.1); Chloride, Blood 111 mmol/L (98-108); Creatinine, Blood 1.83 mg/dL (0.60-1.20); Digoxin (Lanoxin) 3.03 ug/mL (0.80-2.00); Glomerular Filtration Rate 39 (60-); Glucose, Blood 103 mg/dL (70-99); Potassium, Blood 4.7 mmol/L (3.5-5.5); Sodium, Blood 136 mmol/L (136-145)
[2022-11-17 05:07] VITALS: BP 115/57
--- NOTE | 2022-11-17 05:50 | NUR ---
SEBAS AGAIN DID NOT REST WELL HE WOULD HAVE LIKED TO. HE DID COMPLAIN OF MODERATE HEADACHE IN THE MIDDLE OF THE NIGHT AND RECEIVED 2 NORCO WHICH RELIEVED HIS PAIN AND ALLOWED HIM TO SLEEP. HEPARIN STIILL RUNNING AT 15 UNITS/KG/HR OR 24 ML/HR. WOUND ON PATIENTS R. FOOT REDRESSED PER WOUND CARE INSTRUCTIONS. PATIENT TOLERATED WELL.
[2022-11-17 07:52] VITALS: BP 123/72
[2022-11-17 16:35] VITALS: BP 133/72
--- NOTE | 2022-11-17 18:30 | NUR ---
DAYSHIFT SUMMARY Patient AOx4, pleasant and cooperative with cares. Denies pain/discomfort this shift. Ambulates to BR w/ 1x SBA. Vitals stable. Heparin gtt infusing, checking Xa labs, intiating Coumadin therapy. No acute changes to patient status. Awaiting discharge planning.
[2022-11-17 20:13] VITALS: BP 133/73
[2022-11-18 02:30] VITALS: BP 148/69
[2022-11-18 03:18] LABS: BASOPHILS ABSOLUTE AUTO 0.03 K/mm3 (0.00-0.23); BASOPHILS PERCENT AUTO 1 % (0-2); EOSINOPHILS ABSOLUTE AUTO 0.45 K/mm3 (0.00-0.68); EOSINOPHILS PERCENT AUTO 8 % (0-6); Hemoglobin 12.8 g/dL (13.5-17.5); IMMATURE GRAN ABSOLUTE AUTO 0.03 K/mm3 (0.00-0.10); IMMATURE GRAN PERCENT AUTO 1 % (0-1); LYMPHOCYTES ABSOLUTE AUTO 1.18 K/mm3 (0.84-5.20); LYMPHOCYTES PERCENT AUTO 21 % (21-46); MONOCYTES ABSOLUTE AUTO 0.63 K/mm3 (0.16-1.47); MONOCYTES PERCENT AUTO 11 % (4-13); Mean Corpuscular HGB 33.2 pg (26.0-34.0); Mean Corpuscular HGB Conc 33.7 g/dL (31.5-36.5); Mean Corpuscular Volume 99 fL (80-100); Mean Platelet Volume 10.6 fL (9.1-12.4); NEUTROPHILS ABSOLUTE AUTO 3.36 K/mm3 (1.96-9.15); NEUTROPHILS PERCENT AUTO 59 % (41-73); Platelet Count 148 K/mm3 (150-400); RDW Coefficient Variation 14.9 % (11.7-14.2); RDW Standard Deviation 54.5 fL (35.1-46.3); Red Blood Cell Count 3.85 M/mm3 (4.30-5.90); White Blood Cell Count 5.68 K/mm3 (4.00-11.30)
[2022-11-18 03:42] LABS: Alanine Aminotransfer (ALT/SGP 43 U/L (12-78); Albumin, Blood 2.5 g/dL (3.4-5.0); Albumin/Globulin Ratio 0.6 (0.8-1.8); Alk Phos 72 U/L (50-136); Anion Gap 0 mmol/L (6-16); Aspartate Aminotrans (AST/SGOT 46 U/L (12-37); Bilirubin, Total 0.4 mg/dL (0.1-1.0); Blood Urea Nitrogen 32 mg/dL (8-24); Bun/Creatinine Ratio 23.2 (12.0-20.0); CO2, Blood 22 mmol/L (21-32); Calcium, Blood 8.7 mg/dL (8.5-10.1); Chloride, Blood 114 mmol/L (98-108); Creatinine, Blood 1.38 mg/dL (0.60-1.20); Digoxin (Lanoxin) 2.39 ug/mL (0.80-2.00); Globulin, Blood 4.1 g/dL (2.2-4.0); Glomerular Filtration Rate 55 (60-); Glucose, Blood 91 mg/dL (70-99); Potassium, Blood 4.7 mmol/L (3.5-5.5); Sodium, Blood 136 mmol/L (136-145); Total Protein, Blood 6.6 g/dL (6.4-8.2)
[2022-11-18 05:32] LABS: International Normalized Ratio 2.76; Prothrombin Time Results 27.4 Sec (9.7-11.5)
[2022-11-18 07:09] VITALS: BP 137/72
--- NOTE | 2022-11-18 07:42 | NUR ---
SEBAS HAD NO CHANGES OVERNIGHT. HEPARIN STILL RUNNING AT 15MG/KG PER HOUR. REQUIRED PAIN MEDICATIONS ONCE OVERNIGHT FOR LEGS. 10 ML NORCO WORKED WELL FOR HIM. STILL HOPING HE WILL BE ABLE TO GET HOME SOON.
--- NOTE | 2022-11-18 08:10 | NUR ---
ROGER CHAMBERS'ED @ THIS TIME
[2022-11-18 15:37] VITALS: BP 145/75
--- NOTE | 2022-11-18 19:06 | NUR ---
SHIFT SUMMARY PT A&OX4 AND IN PLEASENT MOOD T/O SHIFT. TELE IN PLACE TOLERATING PO INTAKE WELL. SHOWER THIS SHIFT. HEP DRIP DCED COUMADIN INITIATED. FOOT BANDAGE DRESSED. CALL LIGHT W/IN REACH. 1X FWW.
[2022-11-18 19:46] VITALS: BP 128/67
[2022-11-19 03:37] VITALS: BP 143/78
[2022-11-19 05:15] LABS: International Normalized Ratio 3.53; Prothrombin Time Results 34.5 Sec (9.7-11.5)
--- NOTE | 2022-11-19 06:13 | NUR ---
NO CHANGES OVERNIGHT FOR SEBAS. NS RUNNING AT 125ML/HR. VOIDING CLEAR YELLOW URINE. DID NOT REQUIRE ANY PAIN MEDICATION IN THE MIDDLE OF THE NIGHT HE HAD FOR THE LAST FEW DAYS. EXCITED ABOUT THE POSSIBILITY OF GOING HOME TODAY. INR THIS MORNING WAS 3.53
[2022-11-19 08:05] VITALS: BP 151/69
--- NOTE | 2022-11-19 13:37 | NUR ---
DISCHARGE SUMMARY DISCHAGE, FOLLOWUP, AND MEDICATION INSTRUCTIONS GIVEN TO PT. PT VOICED COMPLETE UNDERSTANDING AND HAS NO QUESTIONS AT THIS TIME. IV REMOVED WITH CATHETER TIP INTACT. TELE BOX REMOVED. PT AWAITING RIDE ARRIVAL. WILL CONTINUE TO MONITOR. CALL LIGHT WITHIN REACH.
== END 2022-11-19 13:51 | disposition home health service (06) | DRG 682 ==
LOC: ER 12:11 → MEDS 15:03 → ER 15:03 → MEDS 15:03 → ER 15:58 → MEDS 16:12
PROVIDERS: Physician Assistant; ADMIT Internal Medicine
DX: N17.9 Acute kidney failure, unspecified (principal); I63.9 Cerebral infarction, unspecified; I13.0 Hypertensive heart and chronic kidney disease with heart failure and stage 1 through stage 4 chronic kidney disease, or unspecified chronic kidney disease; I42.8 Other cardiomyopathies; I50.9 Heart failure, unspecified; I48.91 Unspecified atrial fibrillation; G83.21 Monoplegia of upper limb affecting right dominant side; R00.1 Bradycardia, unspecified; R20.0 Anesthesia of skin; M19.041 Primary osteoarthritis, right hand; R79.1 Abnormal coagulation profile; M10.9 Gout, unspecified; E11.22 Type 2 diabetes mellitus with diabetic chronic kidney disease; Z95.0 Presence of cardiac pacemaker; Z87.891 Personal history of nicotine dependence; Z79.01 Long term (current) use of anticoagulants; Z79.899 Other long term (current) drug therapy
CPT/HCPCS: 36415; 70450; 73130; 76770; 80048; 80053; 80061; 80162; 82570; 83036; 83880; 84300; 84540; 85025; 85520; 85610; 92526; 92610; 93005; 93010; 93306; 93880; 96361; 96374; 97110; 97116; 97116-CQ; 97162; 97166; 97530; 97535; 99285-25; A9270; G0378; J1644; J7030; J7040

== ENCOUNTER 2022-12-13 17:57 | Inpatient (IN) | payer MEDICARE, BC ==
[~2022-12-13] VITALS: Ht 190.5 cm; Wt 74.5 kg
[~2022-12-13 17:57] MED LIST changes: +AMIODARONE HCL200 M1 PO; +AMLO10 PO; +B-1100 M1 PO; +BUME2 PO; +Digoxin PO; +METO50ER PO; +WARF2.5 PO; +Zestril30 MG PO
[2022-12-13 21:03] LABS: BASOPHILS ABSOLUTE AUTO 0.06 K/mm3 (0.00-0.23); BASOPHILS PERCENT AUTO 1 % (0-2); EOSINOPHILS ABSOLUTE AUTO 0.34 K/mm3 (0.00-0.68); EOSINOPHILS PERCENT AUTO 3 % (0-6); Hematocrit 39.8 % (37.0-53.0); Hemoglobin 13.8 g/dL (13.5-17.5); IMMATURE GRAN PERCENT AUTO 1 % (0-1); LYMPHOCYTES ABSOLUTE AUTO 1.36 K/mm3 (0.84-5.20); LYMPHOCYTES PERCENT AUTO 13 % (21-46); MONOCYTES ABSOLUTE AUTO 0.97 K/mm3 (0.16-1.47); MONOCYTES PERCENT AUTO 10 % (4-13); Mean Corpuscular HGB 33.3 pg (26.0-34.0); Mean Corpuscular HGB Conc 34.7 g/dL (31.5-36.5); Mean Corpuscular Volume 96 fL (80-100); NEUTROPHILS ABSOLUTE AUTO 7.39 K/mm3 (1.96-9.15); NEUTROPHILS PERCENT AUTO 72 % (41-73); NRBC ABSOLUTE 0.02 K/mm3 (0.00-0.02); NRBC Auto 0.2 /100 WBC (0.0-0.2); RDW Coefficient Variation 13.6 % (11.7-14.2); RDW Standard Deviation 48.4 fL (35.1-46.3); Red Blood Cell Count 4.15 M/mm3 (4.30-5.90); White Blood Cell Count 10.22 K/mm3 (4.00-11.30)
[2022-12-13 21:20] LABS: Albumin, Blood 3.4 g/dL (3.4-5.0); Albumin/Globulin Ratio 0.7 (0.8-1.8); Bilirubin, Total 0.5 mg/dL (0.1-1.0); Bun/Creatinine Ratio 36.4 (12.0-20.0); Calcium, Blood 9.4 mg/dL (8.5-10.1); Creatinine, Blood 2.25 mg/dL (0.60-1.20); Globulin, Blood 4.7 g/dL (2.2-4.0); Potassium, Blood 5.7 mmol/L (3.5-5.5); Total Protein, Blood 8.1 g/dL (6.4-8.2)
[2022-12-13 21:53] LABS: Platelet Count 168 K/mm3 (150-400)
[2022-12-13] MEDS ORDERED: Bumetanide2 MG PO (23:29)
[2022-12-13] MEDS ORDERED: METO100ER PO (23:37)
[2022-12-13 23:38] LABS: International Normalized Ratio 1.12; Prothrombin Time Results 11.7 Sec (9.7-11.5)
[2022-12-13] MEDS ORDERED: DIGOX125 MC1 PO (23:39)
[2022-12-13 23:44] VITALS: BP 131/73
[2022-12-14 04:31] VITALS: BP 123/68
--- NOTE | 2022-12-14 04:44 | NUR ---
PT RESTING IN BED APPLYED OINTMENT TO DRY SCALY SKIN TO LOWER LEGS AND FEET. DRG TO RIGHT FOOT CHANGED. PT HAS YEAST TO JOY AREA AND [place] POWDER ORDER. CALL LIGHT IN REACH.
[2022-12-14 04:50] LABS: BASOPHILS ABSOLUTE AUTO 0.03 K/mm3 (0.00-0.23); BASOPHILS PERCENT AUTO 0 % (0-2); EOSINOPHILS ABSOLUTE AUTO 0.38 K/mm3 (0.00-0.68); EOSINOPHILS PERCENT AUTO 4 % (0-6); Hematocrit 37.7 % (37.0-53.0); Hemoglobin 12.7 g/dL (13.5-17.5); IMMATURE GRAN ABSOLUTE AUTO 0.04 K/mm3 (0.00-0.10); IMMATURE GRAN PERCENT AUTO 1 % (0-1); LYMPHOCYTES ABSOLUTE AUTO 1.68 K/mm3 (0.84-5.20); LYMPHOCYTES PERCENT AUTO 20 % (21-46); MONOCYTES ABSOLUTE AUTO 0.82 K/mm3 (0.16-1.47); MONOCYTES PERCENT AUTO 10 % (4-13); Mean Corpuscular HGB 32.6 pg (26.0-34.0); Mean Corpuscular HGB Conc 33.7 g/dL (31.5-36.5); Mean Corpuscular Volume 97 fL (80-100); Mean Platelet Volume 10.8 fL (9.1-12.4); NEUTROPHILS ABSOLUTE AUTO 5.61 K/mm3 (1.96-9.15); NEUTROPHILS PERCENT AUTO 66 % (41-73); Platelet Count 157 K/mm3 (150-400); RDW Coefficient Variation 13.4 % (11.7-14.2); RDW Standard Deviation 48.3 fL (35.1-46.3); White Blood Cell Count 8.56 K/mm3 (4.00-11.30)
[2022-12-14 06:04] LABS: Albumin, Blood 2.9 g/dL (3.4-5.0); Anion Gap 5 mmol/L (6-16); Blood Urea Nitrogen 78 mg/dL (8-24); CO2, Blood 22 mmol/L (21-32); Calcium, Blood 9.3 mg/dL (8.5-10.1); Chloride, Blood 110 mmol/L (98-108); Creatinine, Blood 2.05 mg/dL (0.60-1.20); Glomerular Filtration Rate 34 (60-); Glucose, Blood 91 mg/dL (70-99); Phosphorus, Blood 3.3 mg/dL (2.5-4.9); Potassium, Blood 5.2 mmol/L (3.5-5.5); Sodium, Blood 137 mmol/L (136-145)
[2022-12-14 06:06] LABS: Digoxin (Lanoxin) 4.07 ug/mL (0.80-2.00)
[2022-12-14 07:34] VITALS: BP 115/72
[2022-12-14 17:04] VITALS: BP 108/68
--- NOTE | 2022-12-14 17:47 | NUR ---
SHIFT SUMMARY PTN IN FOR ACUTE RENAL AND R FOOT ULCER. PTN CONSULT WITH DR TURNER, PODIATRY. PTN ON HEPARIN DRIP, AND ONE BAG LR AT 75/HR. CONTINUE PLAN OF CARE.
[2022-12-14 20:25] VITALS: BP 118/74
[2022-12-15 04:32] VITALS: BP 115/72
[2022-12-15 05:38] LABS: Anti-Xa UFH, PHA Monitoring 0.36 IU/mL; International Normalized Ratio 1.16; Prothrombin Time Results 12.1 Sec (9.7-11.5)
--- NOTE | 2022-12-15 05:40 | NUR ---
PATIENT IS ALERT AND ORIENTED X4, REMAINED IN BED THROUGH THE NIGHT. GOOD U/O NOYED. WOUND CARE PROVIDER PER ORDER. BLE FOOT DEFORMITIES. SOME RED, YEAST AREAS AROUND JOY FOLDS, TREATED PER MAR. NO COMPLAINTS MADE THROUGH THE NIGHT. WILL CONT TO MONITOR.
[2022-12-15 06:51] LABS: BASOPHILS ABSOLUTE AUTO 0.04 K/mm3 (0.00-0.23); BASOPHILS PERCENT AUTO 1 % (0-2); EOSINOPHILS ABSOLUTE AUTO 0.51 K/mm3 (0.00-0.68); EOSINOPHILS PERCENT AUTO 7 % (0-6); Hematocrit 37.2 % (37.0-53.0); Hemoglobin 12.7 g/dL (13.5-17.5); IMMATURE GRAN ABSOLUTE AUTO 0.07 K/mm3 (0.00-0.10); IMMATURE GRAN PERCENT AUTO 1 % (0-1); LYMPHOCYTES ABSOLUTE AUTO 1.97 K/mm3 (0.84-5.20); LYMPHOCYTES PERCENT AUTO 25 % (21-46); MONOCYTES ABSOLUTE AUTO 0.72 K/mm3 (0.16-1.47); MONOCYTES PERCENT AUTO 9 % (4-13); Mean Corpuscular HGB 33.2 pg (26.0-34.0); Mean Corpuscular HGB Conc 34.1 g/dL (31.5-36.5); Mean Corpuscular Volume 97 fL (80-100); Mean Platelet Volume 11.1 fL (9.1-12.4); NEUTROPHILS ABSOLUTE AUTO 4.52 K/mm3 (1.96-9.15); NEUTROPHILS PERCENT AUTO 58 % (41-73); Platelet Count 155 K/mm3 (150-400); RDW Coefficient Variation 13.4 % (11.7-14.2); RDW Standard Deviation 47.7 fL (35.1-46.3); Red Blood Cell Count 3.83 M/mm3 (4.30-5.90); White Blood Cell Count 7.83 K/mm3 (4.00-11.30)
[2022-12-15 07:21] LABS: Albumin, Blood 2.7 g/dL (3.4-5.0); Albumin/Globulin Ratio 0.7 (0.8-1.8); Bilirubin, Total 0.5 mg/dL (0.1-1.0); Bun/Creatinine Ratio 31.2 (12.0-20.0); Calcium, Blood 8.8 mg/dL (8.5-10.1); Creatinine, Blood 1.7 mg/dL (0.60-1.20); Total Protein, Blood 6.7 g/dL (6.4-8.2)
[2022-12-15 07:39] VITALS: BP 114/72
[2022-12-15] MEDS ORDERED: ACET325 PO (12:09)
--- NOTE | 2022-12-15 13:54 | NUR ---
DISCHARGE SUMMARY DISCHARGE, MEDICATION, AND FOLLOWUP MEDICATION INSTRUCTIONS GIVEN TO PT. PT VOICED COMPLETE UNDERSTANDING AND HAS NO QUESTIONS AT THIS TIME. IVS REMOVED WITH CATHETER TIP INTACT. WILL CONTINUE TO MONITOR.
--- NOTE | 2022-12-15 14:30 | NUR ---
DISCHARGE SUMMARY PATIENT CONSENTS SIGNED AND EDUCATION PACKET GIVEN. IV REMOVED. PATIENT LEFT FLOOR VIA WHEELCHAIR WITH TOM FISH AT 1430, 12/15/22. DISCHARGED TO HOME WITH , LEAVING VIA PRIVATE VEHICLE.
[2022-12-15] MEDS ORDERED: WARF5 PO (16:38)
== END 2022-12-15 14:34 | disposition home health service (06) | DRG 622 ==
LOC: ER 17:57 → MEDS 17:58 → ENPENDDIS 12-15 09:41 → MEDS 12-15 14:34
PROVIDERS: Emergency Medicine; Hospitalist; ADMIT Student in an Organized Health Care Education/Training Program
PROC: 0JBQ0ZZ Excision of Right Foot Subcutaneous Tissue and Fascia, Open Approach (ICD-10-PCS; principal; 2022-12-14)
DX: E11.621 Type 2 diabetes mellitus with foot ulcer (principal); L89.893 Pressure ulcer of other site, stage 3; I13.0 Hypertensive heart and chronic kidney disease with heart failure and stage 1 through stage 4 chronic kidney disease, or unspecified chronic kidney disease; I42.8 Other cardiomyopathies; N17.9 Acute kidney failure, unspecified; N18.9 Chronic kidney disease, unspecified; I48.91 Unspecified atrial fibrillation; I50.9 Heart failure, unspecified; E11.22 Type 2 diabetes mellitus with diabetic chronic kidney disease; E87.5 Hyperkalemia; R79.1 Abnormal coagulation profile; S91.301A Unspecified open wound, right foot, initial encounter; L97.519 Non-pressure chronic ulcer of other part of right foot with unspecified severity; R89.2 Abnormal level of other drugs, medicaments and biological substances in specimens from other organs, systems and tissues; E78.5 Hyperlipidemia, unspecified; E11.42 Type 2 diabetes mellitus with diabetic polyneuropathy; M10.9 Gout, unspecified; I87.8 Other specified disorders of veins; Z79.899 Other long term (current) drug therapy; Z79.811 Long term (current) use of aromatase inhibitors; Z79.891 Long term (current) use of opiate analgesic; Z95.0 Presence of cardiac pacemaker; Z87.891 Personal history of nicotine dependence; Z89.412 Acquired absence of left great toe; Z79.01 Long term (current) use of anticoagulants; Z79.1 Long term (current) use of non-steroidal anti-inflammatories (NSAID); Z79.4 Long term (current) use of insulin
CPT/HCPCS: 36415; 73630; 76770; 80053; 80069; 80162; 82947; 85025; 85520; 85610; 93005; 93010; 96374; 96375; 97161; 97530; 99285-25; A9270; G0378; J1644; J1815; J7120

== ENCOUNTER → 2022-12-17 | Outpatient (CLI) | payer MEDICARE, BC ==
[~2022-12-17] MED LIST changes: +DIGOX125 MC1 PO; +WARF5 PO
== END | disposition home or self-care (01) ==
LOC: LAB SHORT 12:00 → LAB 12:00
DX: L97.509 Non-pressure chronic ulcer of other part of unspecified foot with unspecified severity (principal)
CPT/HCPCS: 87070; 87075; 87077; 87186; 87205

== ENCOUNTER → 2023-01-07 | Outpatient (CLI) | payer MEDICARE, BC | LOC: LAB SHORT 12:04 → PLD 12:04 | DX: Z89.421 Acquired absence of other right toe(s) (principal); M79.671 Pain in right foot; L97.519 Non-pressure chronic ulcer of other part of right foot with unspecified severity; I70.213 Atherosclerosis of native arteries of extremities with intermittent claudication, bilateral legs; M10.9 Gout, unspecified | CPT/HCPCS: 88305; 88311 ==

== ENCOUNTER 2023-02-08 09:56 | Inpatient (IN) | payer MEDICARE, BC ==
[~2023-02-08] VITALS: Ht 190.5 cm; Wt 76.9 kg
[2023-02-08] VITALS (19 sets, daily range): BP systolic 74–97; BP diastolic 41–56
[2023-02-08 11:05] LABS: BASOPHILS ABSOLUTE AUTO 0.01 K/mm3 (0.00-0.23); BASOPHILS PERCENT AUTO 0 % (0-2); EOSINOPHILS ABSOLUTE AUTO 0.16 K/mm3 (0.00-0.68); EOSINOPHILS PERCENT AUTO 2 % (0-6); Hematocrit 46.8 % (37.0-53.0); Hemoglobin 16.2 g/dL (13.5-17.5); IMMATURE GRAN ABSOLUTE AUTO 0.03 K/mm3 (0.00-0.10); IMMATURE GRAN PERCENT AUTO 0 % (0-1); LYMPHOCYTES PERCENT AUTO 8 % (21-46); MONOCYTES PERCENT AUTO 1 % (4-13); Mean Corpuscular HGB 33.5 pg (26.0-34.0); Mean Corpuscular HGB Conc 34.6 g/dL (31.5-36.5); Mean Corpuscular Volume 97 fL (80-100); Mean Platelet Volume 10.4 fL (9.1-12.4); NEUTROPHILS ABSOLUTE AUTO 8.74 K/mm3 (1.96-9.15); NEUTROPHILS PERCENT AUTO 89 % (41-73); NRBC ABSOLUTE 0.04 K/mm3 (0.00-0.02); NRBC Auto 0.4 /100 WBC (0.0-0.2); Platelet Count 163 K/mm3 (150-400); RDW Standard Deviation 46.4 fL (35.1-46.3); Red Blood Cell Count 4.84 M/mm3 (4.30-5.90); White Blood Cell Count 9.84 K/mm3 (4.00-11.30)
[2023-02-08 11:33] LABS: Magnesium, Blood 2.3 mg/dL (1.6-2.4)
[2023-02-08 11:41] LABS: Alanine Aminotransfer (ALT/SGP 67 U/L (12-78); Albumin, Blood 3.9 g/dL (3.4-5.0); Albumin/Globulin Ratio 0.9 (0.8-1.8); Alk Phos 99 U/L (50-136); Anion Gap 8 mmol/L (6-16); Aspartate Aminotrans (AST/SGOT 54 U/L (12-37); Bilirubin, Total 0.7 mg/dL (0.1-1.0); Blood Urea Nitrogen 66 mg/dL (8-24); Bun/Creatinine Ratio 34.6 (12.0-20.0); CO2, Blood 23 mmol/L (21-32); Calcium, Blood 10.1 mg/dL (8.5-10.1); Chloride, Blood 108 mmol/L (98-108); Creatinine, Blood 1.91 mg/dL (0.60-1.20); Digoxin (Lanoxin) 2.36 ug/mL (0.80-2.00); Globulin, Blood 4.5 g/dL (2.2-4.0); Glomerular Filtration Rate 37 (60-); Glucose, Blood 122 mg/dL (70-99); Sodium, Blood 139 mmol/L (136-145); Total Protein, Blood 8.4 g/dL (6.4-8.2)
[2023-02-08 11:59] LABS: Source, Urine Clean Catch
[2023-02-08 12:11] LABS: International Normalized Ratio 1.52; Prothrombin Time Results 15.6 Sec (9.7-11.5)
[2023-02-08 12:43] LABS: Appearance, Urine Clear (Clear); Bilirubin, Urine Neg (Neg); Blood, Urine Neg (Neg); Color, Urine Yellow (P-Yellow); Glucose Qualitative, Urine Neg (Neg); Ketones, Urine Neg (Neg); Leukocyte Esterase, Urine Neg (Neg); Nitrite, Urine Neg (Neg); Protein, Urine 1+ (Neg); Urobilinogen, Urine NORM (Normal)
[2023-02-08 14:46] LABS: Anti-Xa UFH, PHA Monitoring <0.10 IU/mL
[2023-02-08] MEDS ORDERED: DIGOX125 MC1 PO (15:00)
[2023-02-08] MEDS ORDERED: BUME2 PO (15:01)
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
--- NOTE | 2023-02-08 20:26 | NUR ---
ASSUMED PT CARE FORM VINNY PETTIT RN ON . PT IS A&OX4. DENIES ANY NAUSEA, SOB, OR CHEST PAIN. STATES PAIN IN LLE IS 7/10, REQUESTING PAIN MEDICATIONS AT THIS TIME. BP LOW, SEE MEDICAL RECORDS. INFORMED PT FOR HIS SAFETY PAIN MEDICATION WOULD BE HELD UNTIL BP INCREASED. PT ASYMPTOMATIC WITH LOW BP. DR. FROST NOTIFIED OF LOW BP, RECIEVE ORDER FOR BOLUS, SEE EMAR. FLUIDS INFUSING, WILL MONITOR. O2 SATS > 92% ON RA. HR PACED IN THE 60'S. CALL LIGHT IN REACH.
--- NOTE | 2023-02-08 21:09 | NUR ---
DR. FROST CALLED SECOND TIME ABOUT LOW BP, RECIEVED ORDER FOR SECOND 250 ML BOLUS. AFTER BOLUS GIVEN BP STILL LOW, SEE MEDICAL RECORD, DR. FROST NOTIFIED, RECEIVED ORDER FOR MIDODRINE. PT REMAINS ASYMPTOMATIC.
--- NOTE | 2023-02-08 22:52 | NUR ---
RECEIVED ORDER FOR ADDITIONAL 500Ml BOLUS DUE TO CONTINUED LOW BP'S.
[2023-02-09] VITALS (80 sets, daily range): BP systolic 73–148; BP diastolic 41–113
--- NOTE | 2023-02-09 01:35 | NUR ---
ADDITIONAL 500 ML BOLUS GIVEN WITHOUT RESULTS. DR. FROST INSTRUCTED TO TRANSFER PT TO ICU.
--- NOTE | 2023-02-09 02:00 | NUR ---
PT TRANSFERRED TO ROOM ICU FROM PCU WITH CONCERNS OF HYPOTENSION. PT ALERT AND ORIENTED. PLEASANT AND COOPERATIVE WITH CARE AND ASSESSMENT. PT ARRIVES AT 0153. SLIDE TRANSFERRED TO BED FROM PCU BED. PT ASYMPTOMATIC WITH BLOOD PRESSURES BEING LOW. WILL REVIEW CHART AND PLAN OF CARE FOR THIS PT.
--- NOTE | 2023-02-09 02:01 | NUR ---
REPORTED OFF TO SEBAS TEJEDA RN, TRANSFERED TO ICU 11
--- NOTE | 2023-02-09 04:00 | NUR ---
HAVE TITRATED LEVOPHED UP TO 7 MCG'S/MIN BLOOD PRESSURES REMAIN WITH MAP AT OR NEAR 65. PT ABLE TO MOVE HIMSELF ABOUT IN BED. RIGHT FOOT ELEVATED ON PILLOWS. PT DENIES COMPLAINTS OF PAIN.
--- NOTE | 2023-02-09 06:36 | NUR ---
PT REMAINS WITH DRESSING TO RIGHT FOOT CDI. PT VOICES GOOD UNDERSTANING OF WOUNDS AND DRESSINGS REQUIRED FOR HIS FOOT. PT REMAINS AFEBRILE. NO S/S ADVERSE REACTIONS TO ANTIBIOTIC THERAPY. HEPARIN CONTINUES PER PHARMACY ORDERS. WILL CONTINUE TO MONITOR PT, AND WILL REPORT OFF TO ONCOMING RN.
[2023-02-09 06:40] LABS: Hematocrit 36.5 % (37.0-53.0); Hemoglobin 12.6 g/dL (13.5-17.5); Mean Corpuscular HGB 34.1 pg (26.0-34.0); Mean Corpuscular HGB Conc 34.5 g/dL (31.5-36.5); Mean Corpuscular Volume 99 fL (80-100); Mean Platelet Volume 11.4 fL (9.1-12.4); Platelet Count 123 K/mm3 (150-400); RDW Coefficient Variation 13.4 % (11.7-14.2); White Blood Cell Count 32.91 K/mm3 (4.00-11.30)
[2023-02-09 07:06] LABS: Albumin, Blood 2.3 g/dL (3.4-5.0); Albumin/Globulin Ratio 0.7 (0.8-1.8); Bilirubin, Total 0.7 mg/dL (0.1-1.0); Bun/Creatinine Ratio 32.7 (12.0-20.0); Creatinine, Blood 1.99 mg/dL (0.60-1.20); Globulin, Blood 3.5 g/dL (2.2-4.0); Potassium, Blood 5.5 mmol/L (3.5-5.5)
[2023-02-09 07:16] LABS: BAND PERCENT MAN 20 % (0-8); BASOPHILS PERCENT MAN 0 % (0-2); EOSINOPHILS PERCENT MAN 0 % (0-6); LYMPHOCYTES % ATYPICAL MANUAL 1 % (0-0); LYMPHOCYTES ABSOLUTE MAN 0.98 K/mm3 (0.84-5.20); LYMPHOCYTES PERCENT MAN 2 % (21-46); METAMYELOCYTE ABSOLUTE MAN 0.98 K/mm3 (0.00-0.00); METAMYELOCYTE PERCENT MAN 3 % (0-0); MONOCYTES ABSOLUTE MAN 0.65 K/mm3 (0.16-1.47); MONOCYTES PERCENT MAN 2 % (4-13); NEUTROPHILS ABSOLUTE MAN 30.27 K/mm3 (1.96-9.15); SEG NEUTROPHILS PERCENT MAN 72 % (41-73); TOTAL CELLS COUNTED 100
[2023-02-09 07:49] LABS: Calcium, Blood 7.8 mg/dL (8.5-10.1); Total Protein, Blood 5.8 g/dL (6.4-8.2)
--- NOTE | 2023-02-09 10:20 | NUR ---
SHIFT ASSESSMENT ASSUMED CARE OF PT @ 0700, BEDSIDE REPORT RECEIVED FROM POWER MULLEN. PT ALERT AND ORIENTED, FOLLOWING COMMANDS, STANLEY. WEAK AND PAINFUL IN RLE. BANDAGES IN PLACE TO RLE, WILL APPLY NEW BANDAGE THIS AFTERNOON. LEVOPHED CONTINUES, CURRENTLY @ 5MCG/MIN. PT AFEBRILE. PACED RYTHM ON THE SENIOR MECHANICAL ESTIMATOR. PT USING URINAL AND BEDPAN, LARGE LOOSE BM THIS MORNING, NO SIGNS OF BLEEDING. PLAN TO TAKE PT TO CT THIS MORNING.
[2023-02-09 13:14] LABS: Hematocrit 36.4 % (37.0-53.0); Hemoglobin 12.7 g/dL (13.5-17.5); Mean Corpuscular HGB 34.5 pg (26.0-34.0); Mean Corpuscular HGB Conc 34.9 g/dL (31.5-36.5); Mean Corpuscular Volume 99 fL (80-100); Mean Platelet Volume 10.9 fL (9.1-12.4); Platelet Count 116 K/mm3 (150-400); RDW Coefficient Variation 13.4 % (11.7-14.2); RDW Standard Deviation 48.7 fL (35.1-46.3); Red Blood Cell Count 3.68 M/mm3 (4.30-5.90)
[2023-02-09 13:42] LABS: BAND PERCENT MAN 10 % (0-8); BASOPHILS PERCENT MAN 0 % (0-2); EOSINOPHILS PERCENT MAN 0 % (0-6); LYMPHOCYTES ABSOLUTE MAN 0.53 K/mm3 (0.84-5.20); LYMPHOCYTES PERCENT MAN 2 % (21-46); METAMYELOCYTE ABSOLUTE MAN 0.26 K/mm3 (0.00-0.00); METAMYELOCYTE PERCENT MAN 1 % (0-0); MONOCYTES ABSOLUTE MAN 1.06 K/mm3 (0.16-1.47); MONOCYTES PERCENT MAN 4 % (4-13); MYELOCYTE ABSOLUTE MAN 0.26 K/mm3 (0.00-0.00); MYELOCYTE PERCENT MAN 1 % (0-0); NEUTROPHILS ABSOLUTE MAN 24.47 K/mm3 (1.96-9.15); SEG NEUTROPHILS PERCENT MAN 82 % (41-73); TOTAL CELLS COUNTED 100
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
--- NOTE | 2023-02-09 18:30 | NUR ---
SHIFT SUMMARY PT REMAINS A&OX4, FOLLOWING COMMANDS. PT C/O MILD GENERALIZED PAIN, HAS NOT NEEDED MEDICATION. ULTRASOUND TO R GROIN COMPLETED WELL CT TO RLE THIS AFTERNOON. PT CURRENTLY OFF OF LEVOPHED, TOLERATING MIDODRINE c MAP >65. HEPARIN GTT TITRATED UP TO 17 U/KG/HR. REMAINS AFEBRILE c T-MAX OF 99. TWO MODERATE SIZED LOOSE BM'S TODAY, NO SIGNS OF BLEEDING. NEW DRESSING APPLIED TO RLE WITH CHG BEDBATH.
--- NOTE | 2023-02-09 19:27 | NUR ---
ASSUMED CARE OF PT AT 1900. REPORT RECEIVED. PT PRESENTS IN BED. ALERT AND ORIENTED. PLEASANT AND COOPERATIVE WITH CARE AND ASSESSMENT. DENIES COMPLAINT OF PAIN OR N/V. WILL REVIEW CHART AND PLAN OF CARE FOR THIS PT.
--- NOTE | 2023-02-09 20:00 | NUR ---
FIRE IGNITION AND PREVENTION DISCUSSED WITH PT NO SMOKING OR IGNITION SOURCES SECONDARY OXYGEN. PT IS NON-SMOKER PER PT.
--- NOTE | 2023-02-09 23:06 | NUR ---
CALL RECEIVED FROM DR KAPOOR. PLAN FOR PT TO HAVE SURGERY TOMORROW. NPO AFTER 2400. STOPPED HEPARIN DRIP PER NEW ORDERS. INFORMED PT OF DR KAPOOR'S PHONE CALL AND PLANNED PROCEDURE. PT VERBALIZES UNDERSTANDING.
[2023-02-10] VITALS (37 sets, daily range): BP systolic 84–144; BP diastolic 40–128
[2023-02-10 04:28] LABS: Hematocrit 33.2 % (37.0-53.0); Hemoglobin 11.3 g/dL (13.5-17.5); Mean Platelet Volume 10.8 fL (9.1-12.4); Platelet Count 91 K/mm3 (150-400)
[2023-02-10 05:27] LABS: Hemoglobin 11.4 g/dL (13.5-17.5); Mean Corpuscular HGB 33.5 pg (26.0-34.0); Mean Corpuscular HGB Conc 34.5 g/dL (31.5-36.5); Mean Corpuscular Volume 97 fL (80-100); Mean Platelet Volume 11.3 fL (9.1-12.4); Platelet Count 91 K/mm3 (150-400); RDW Coefficient Variation 13.4 % (11.7-14.2); RDW Standard Deviation 48.1 fL (35.1-46.3); White Blood Cell Count 16.61 K/mm3 (4.00-11.30)
[2023-02-10 05:30] LABS: BAND PERCENT MAN 20 % (0-8); BASOPHILS PERCENT MAN 0 % (0-2); EOSINOPHILS PERCENT MAN 0 % (0-6); LYMPHOCYTES ABSOLUTE MAN 0.33 K/mm3 (0.84-5.20); LYMPHOCYTES PERCENT MAN 2 % (21-46); MONOCYTES ABSOLUTE MAN 0.49 K/mm3 (0.16-1.47); MONOCYTES PERCENT MAN 3 % (4-13); NEUTROPHILS ABSOLUTE MAN 15.77 K/mm3 (1.96-9.15); SEG NEUTROPHILS PERCENT MAN 75 % (41-73); TOTAL CELLS COUNTED 100
[2023-02-10 05:39] LABS: Bun/Creatinine Ratio 33.5 (12.0-20.0); Calcium, Blood 7.8 mg/dL (8.5-10.1); Creatinine, Blood 1.58 mg/dL (0.60-1.20); Potassium, Blood 4.6 mmol/L (3.5-5.5)
--- NOTE | 2023-02-10 06:15 | NUR ---
PT HAS BEEN NPO SINCE 2399. PT AWARE AND ACCEPTING THAT HE WILL BE HAVING PROCEDURE THIS AM. BLOOD PRESSURES HAVE REMAINED WNL. MAP AT OR > 65. VOIDS Q.S. AFEBRILE. WILL CONTINUE TO MONITOR PT, AND WILL REPORT OFF TO ONCOMING RN.
--- NOTE | 2023-02-10 07:15 | NUR ---
CARE ASSUMPTION DURING BEDSIDE SHIFT REPORT W SEBAS STEVE THE PT IS LYING IN BED AWAKE. PT IS ALERT AND ORIENTED COMMUNICATING W STAFF APPROPRIATELY. SPO2 >92% ON RM AIR. BP WNL AND STABLE. PT DENYING ANY PAIN OR NAUSEA AT THIS TIME. PT NPO IN ANTICIPATION FOR SX THIS AM.
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
--- NOTE | 2023-02-10 10:30 | NUR ---
UPDATE PT BACK TO FROM SURGERY. PT HAD R PINKY TOE AMPUTATED. R FOOT HAS SURGICAL DRESSING THAT IS C/D/I. PT ABLE TO MOVE HIS TOES ON BOTH FEET. CAP REFILL <3 SECONDS ON AFFECTED FOOT/TOES. DRESSING IS C/D/I. PT DENYING ANY PAIN OR NAUSEA AT THIS TIME. PT REQUESTING TO SLEEP AT THIS TIME.
[2023-02-10 13:16] LABS: Vancomycin, Trough 18.3 ug/mL (5.0-10.0)
--- NOTE | 2023-02-10 15:00 | NUR ---
UPDATE PHARMACY CONFIRMING W DR DOWELL THAT HEPARIN GTT WILL BE HELD UNITL SURGEON IS OK W IT BEING RESTARTED.
--- NOTE | 2023-02-10 18:05 | NUR ---
DAYSHIFT SUMMARY PT HAS REMAINED ALERT AND ORIENTED THIS SHIFT COMMUNICATING APPROPRIATELY W STAFF. PT'S BP WNL AND STABLE THIS SHIFT, PT RECIEVING MIDODRINE PER EMAR. MONITOR SHOWING V-PACED RYTHYM AT 60 THIS SHIFT. SPO2 >92% ON RM AIR. PT AFEBRILE THIS SHIFT. PT WENT TO THE OR THIS AM TO HAVE PARTIAL AMPUTATION OF RIGHT 5TH TOE, PT HAS DENIED ANY PAIN OR NAUSEA SINCE RETURNING FROM SURGERY. PT'S R FOOT HAS GOOD CAP REFILL AND FULL SENSATION. PT ABLE TO MOVE ALL REMAINING TOES ON AFFECTED FOOT. PT TOLERATING PO INTAKE AND EATING MAJORITY OF HIS MEALS. PT VOIDING WELL USING THE URINAL W/O ASSISTANCE THIS SHIFT. HEPARIN BEING HELD PER PHARMACY, SCD ON LLE ALL SHIFT. PT HAS BEEN VERY PLEASANT THIS SHIFT DENYING ANY FURTHER NEEDS AT THIS TIME. WILL REPORT TO ONCOMING RN.
[2023-02-10 22:33] LABS: Bun/Creatinine Ratio 31.5 (12.0-20.0); Calcium, Blood 8.1 mg/dL (8.5-10.1); Creatinine, Blood 1.46 mg/dL (0.60-1.20); Potassium, Blood 4.5 mmol/L (3.5-5.5)
[2023-02-11] VITALS (15 sets, daily range): BP systolic 120–147; BP diastolic 45–92
[2023-02-11 03:09] LABS: HEMOGLOBIN A1C 4.8 % (4.8-5.6)
[2023-02-11 03:54] LABS: Hematocrit 34.2 % (37.0-53.0); Hemoglobin 11.7 g/dL (13.5-17.5); Mean Corpuscular HGB 33.1 pg (26.0-34.0); Mean Corpuscular HGB Conc 34.2 g/dL (31.5-36.5); Mean Corpuscular Volume 97 fL (80-100); Mean Platelet Volume 11.5 fL (9.1-12.4); Platelet Count 107 K/mm3 (150-400); RDW Coefficient Variation 13.5 % (11.7-14.2); RDW Standard Deviation 48.1 fL (35.1-46.3); Red Blood Cell Count 3.53 M/mm3 (4.30-5.90); White Blood Cell Count 12.99 K/mm3 (4.00-11.30)
[2023-02-11 04:57] LABS: BAND PERCENT MAN 4 % (0-8); BASOPHILS PERCENT MAN 0 % (0-2); EOSINOPHILS ABSOLUTE MAN 0.38 K/mm3 (0.00-0.68); EOSINOPHILS PERCENT MAN 3 % (0-6); LYMPHOCYTES ABSOLUTE MAN 0.38 K/mm3 (0.84-5.20); LYMPHOCYTES PERCENT MAN 3 % (21-46); MONOCYTES PERCENT MAN 0 % (4-13); NEUTROPHILS ABSOLUTE MAN 12.21 K/mm3 (1.96-9.15); SEG NEUTROPHILS PERCENT MAN 90 % (41-73); TOTAL CELLS COUNTED 100
--- NOTE | 2023-02-11 06:19 | NUR ---
PATIENT AOX4 AND MOVES ALL EXTREMITIES. DENIES ANY PAIN OVERNIGHT. 100% V-PACED WITH UNDERLYING AFIB. BP STABLE. ROOM AIR WHEN AWAKE, PLACED ON 2L WHILE SLEEPING. PATIENT EDUCATED ON SOURCES OF IGNITION AND RISKS.
--- NOTE | 2023-02-11 09:50 | NUR ---
SHIFT ASSESSMENT ASSUMED CARE OF PT @ 0700. PT A&OX4, STANLEY. FOLLOWING COMMANDS, C/O MILD PAIN TO RLE c LIMITED ROM. SX DRESSING IN PLACE TO RLE, C/D, AWAITING WOUND CONSULT TODAY. PACED RYTHM ON THE TEMPORARY ADMINISTRATIVE ASSISTANT. BP STABLE. INITIALLY ON 1LPM O2 VIA NC WHILE SLEEPING, O2 REMOVED, SATS >95% WHILE AWAKE. PT TOLERATING PO INTAKE, USING URINAL. PLAN TO GET PT TO CHAIR THIS AFTERNOON, PT UNWILLING THIS AM.
--- NOTE | 2023-02-11 13:30 | NUR ---
WOUND CARE R LATERAL FOOT WOUND IS APPROXIMATED WITH SUTURES. SCANT DRAINAGE NOTED. WOUND VAC IS NOT INDICATED. CLEANSED WITH NS AND GAUZE. XEROFORM TO SUTURE LINE THEN ABD/GAUZE. NEW PHOTO AND ASSESSMENT IN HARD CHART. PT TOLERATED WELL
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
--- NOTE | 2023-02-11 16:08 | NUR ---
TRANSFER PT ADMITTED TO SURGICAL ROOM 210, REPORT GIVEN TO POWER CASILLAS. TX VIA GURNEY TO ROOM.
--- NOTE | 2023-02-11 19:30 | NUR ---
SHIFT SUMMARY NO ACUTE CHANGES SINCE TRANSFER TO UNIT. TELE PLACED, PACED AT 60. PATIENT DENIES PAIN. DRESSING TO R FOOT C/D/I. TOELRATING RENAL DIET WELL. CALL LIGHT IN REACH, CALLS APPROPRIATELY. REPORT GIVEN TO TAD STEVE.
[2023-02-12 03:21] VITALS: BP 117/86
--- NOTE | 2023-02-12 04:37 | NUR ---
SHIFT SUMMARY POD2 BIOPSY AND I&D OF RIGHT FOOT. DRESSING IS C/D/I. PT REPORTS SENSATION INTACT IN RLE, MOVES LEG ON COMMAND. SLIGHTLY SLOW CAP REFILL IN RLE. VSS. TELE READS VENTRICULAR PACED @60. PT MEDICATED FOR A HEADACHE ONCE, REPORTS MINIMAL TO NO PAIN IN RLE. PT TOLLERATING PO INTAKE W/O N/V. NO DIFFICULTY VOIDING. NO ACUTE EVENTS T/O THE NIGHT. PLAN FOR PT TO REMAIN ON IV ABX, PT/OT, AND DAILY DRESSING CHANGES. IGNITION RISK REVIEWED; NO HAZARDOUS SOURCES FOUND. THE PATIENT IS CURRENTLY RESTING,IN NO DISTRESS, CALL LIGHT IN REACH
[2023-02-12 05:57] LABS: BASOPHILS ABSOLUTE AUTO 0.03 K/mm3 (0.00-0.23); BASOPHILS PERCENT AUTO 0 % (0-2); EOSINOPHILS ABSOLUTE AUTO 0.37 K/mm3 (0.00-0.68); EOSINOPHILS PERCENT AUTO 3 % (0-6); Hematocrit 33.3 % (37.0-53.0); Hemoglobin 11.6 g/dL (13.5-17.5); IMMATURE GRAN ABSOLUTE AUTO 0.09 K/mm3 (0.00-0.10); IMMATURE GRAN PERCENT AUTO 1 % (0-1); LYMPHOCYTES ABSOLUTE AUTO 0.61 K/mm3 (0.84-5.20); LYMPHOCYTES PERCENT AUTO 6 % (21-46); MONOCYTES ABSOLUTE AUTO 0.71 K/mm3 (0.16-1.47); MONOCYTES PERCENT AUTO 6 % (4-13); Mean Corpuscular HGB 33.4 pg (26.0-34.0); Mean Corpuscular HGB Conc 34.8 g/dL (31.5-36.5); Mean Corpuscular Volume 96 fL (80-100); Mean Platelet Volume 10.9 fL (9.1-12.4); NEUTROPHILS PERCENT AUTO 84 % (41-73); Platelet Count 109 K/mm3 (150-400); RDW Coefficient Variation 13.7 % (11.7-14.2); RDW Standard Deviation 48.4 fL (35.1-46.3); Red Blood Cell Count 3.47 M/mm3 (4.30-5.90); White Blood Cell Count 11.01 K/mm3 (4.00-11.30)
[2023-02-12 06:21] LABS: Albumin, Blood 1.9 g/dL (3.4-5.0); Albumin/Globulin Ratio 0.5 (0.8-1.8); Bilirubin, Total 0.7 mg/dL (0.1-1.0); Bun/Creatinine Ratio 27.3 (12.0-20.0); Calcium, Blood 8.2 mg/dL (8.5-10.1); Creatinine, Blood 1.21 mg/dL (0.60-1.20); Globulin, Blood 3.7 g/dL (2.2-4.0); Potassium, Blood 4.5 mmol/L (3.5-5.5); Total Protein, Blood 5.6 g/dL (6.4-8.2)
[2023-02-12 07:50] VITALS: BP 133/55
--- NOTE | 2023-02-12 11:21 | NUR ---
Pt. is resting but responds when I enter the room. Pt. is pleasant. Facilitate a life review, and establish some rapport. Pt. displays evidence of engagement and awareness. Considered matters of oneil and belief. Pt. will welcome a visit from the [facility] volunteers later today. Pt. verbalized gratitude for the spiritual care visit.
--- NOTE | 2023-02-12 11:27 | NUR ---
Pt. is awake in bed and welcomes my visit. Pt. is pleasant. Faciltated a life review and established rapport. Pt. displays evidence of awareness and engagement. Pt. is anticipating discharge later today, but verbalizes that both he and his will need some sort of home health. Listen with empathy and interest, Prayed with Pt. Pt. verbalized gratitude for the spiritual care visit.
[2023-02-12 14:19] LABS: Vancomycin, Random 21.2 ug/mL
[2023-02-12 15:43] VITALS: BP 146/62
[2023-02-12] MEDS ORDERED: CIPR500 PO (17:05)
[2023-02-12] MEDS ORDERED: CLIN300 PO (17:06)
[2023-02-12] MEDS ORDERED: XARELTO20 MG PO (17:07)
--- NOTE | 2023-02-12 18:56 | NUR ---
DISCHARGE SUMMARY POD2 R 5TH DIGIT BONE BIOPSY, A/OX4, VSS, TOLERATING PO, DENIES PAIN. DISCUSSED DISCHARGE INFORMATION WITH THE PATIENT INCLUDING HOME CARE, MEDICATION CHANGES, AND FOLLOW UP APPOINTMENTS. IV ACCESS REMOVED. ESCORTED OUT VIA WC TO HIS DAUGHTER IN LAW TO GO HOME
== END 2023-02-12 18:20 | disposition home or self-care (01) | DRG 853 ==
LOC: ER 09:56 → PCU 12:42 → ICUE 12:42 → PCU 14:49 → ICUE 02-09 01:51 → SURS 02-11 15:00
PROVIDERS: Family Medicine; Podiatrist Foot & Ankle Surgery; Student in an Organized Health Care Education/Training Program; ADMIT Internal Medicine
PROC: 3E033XZ Introduction of Vasopressor into Peripheral Vein, Percutaneous Approach (ICD-10-PCS; 2023-02-08)
PROC: 3E03329 Introduction of Other Anti-infective into Peripheral Vein, Percutaneous Approach (ICD-10-PCS; 2023-02-08)
PROC: 0QBN3ZX Excision of Right Metatarsal, Percutaneous Approach, Diagnostic (ICD-10-PCS; principal; 2023-02-10 08:30)
DX: A41.02 Sepsis due to Methicillin resistant Staphylococcus aureus (principal); R65.21 Severe sepsis with septic shock; L03.115 Cellulitis of right lower limb; M86.8X7 Other osteomyelitis, ankle and foot; I13.0 Hypertensive heart and chronic kidney disease with heart failure and stage 1 through stage 4 chronic kidney disease, or unspecified chronic kidney disease; I42.8 Other cardiomyopathies; I48.21 Permanent atrial fibrillation; E87.21 Acute metabolic acidosis; E11.69 Type 2 diabetes mellitus with other specified complication; L97.519 Non-pressure chronic ulcer of other part of right foot with unspecified severity; I50.9 Heart failure, unspecified; D63.1 Anemia in chronic kidney disease; E11.22 Type 2 diabetes mellitus with diabetic chronic kidney disease; N18.30 Chronic kidney disease, stage 3 unspecified; M10.9 Gout, unspecified; M19.90 Unspecified osteoarthritis, unspecified site; E11.621 Type 2 diabetes mellitus with foot ulcer; B95.4 Other streptococcus as the cause of diseases classified elsewhere; Z79.811 Long term (current) use of aromatase inhibitors; Z79.02 Long term (current) use of antithrombotics/antiplatelets; Z79.899 Other long term (current) drug therapy; Z95.0 Presence of cardiac pacemaker; Z87.891 Personal history of nicotine dependence; Z79.01 Long term (current) use of anticoagulants; Z89.421 Acquired absence of other right toe(s)
CPT/HCPCS: 36415; 73590; 73610; 73630; 73701; 76857; 80048; 80053; 80162; 80202; 83036; 83605; 83735; 84145; 85014; 85018; 85025; 85049; 85520; 85610; 85651; 85730; 86140; 87040; 87070; 87071; 87075; 87077; 87081; 87147; 87186; 87205; 88307; 93005; 93010; 96365; 96366; 96375; 99285-25; A9270; J0692; J0696; J1644; J2001; J2250; J2405; J2704; J3010; J3370; J7030; J7050; J7060; J7120; Q9967

== ENCOUNTER 2023-05-17 20:17 | Emergency (ER) | payer OTHER, MEDICARE, BC ==
[~2023-05-17] VITALS: Ht 190.5 cm; Wt 77.1 kg
[~2023-05-17 20:17] MED LIST changes: +CIPR500 PO; +CLIN300 PO; +XARELTO20 MG PO
[2023-05-18 00:15] VITALS: BP 120/77
[2023-05-18] MEDS ORDERED: WARF1 (00:41)
[2023-05-18] MEDS ORDERED: Lisinopril2.5 MG (02:00)
[2023-05-18] MEDS ORDERED: DIGOX125 MC1 (02:00)
== END 2023-05-18 00:15 | disposition home or self-care (01) ==
LOC: ER 20:17
DX: S00.81XA Abrasion of other part of head, initial encounter (principal); Z79.01 Long term (current) use of anticoagulants; W01.10XA Fall on same level from slipping, tripping and stumbling with subsequent striking against unspecified object, initial encounter; Z79.899 Other long term (current) drug therapy; Z88.1 Allergy status to other antibiotic agents; I50.9 Heart failure, unspecified; E11.9 Type 2 diabetes mellitus without complications; I48.91 Unspecified atrial fibrillation; Z87.891 Personal history of nicotine dependence
CPT/HCPCS: 70450; 99284-25